=== PATIENT | female | born 1960 | race Caucasian/White ===

== ENCOUNTER 2022-06-05 11:20 | Inpatient (IN) | payer OTHER, SELFPAY ==
[2022-06-05] VITALS (15 sets, daily range): BP systolic 108–171; BP diastolic 69–96; PULSE 73–124; RESP 12–18; TEMP 34.8–37; O2SAT 92–100; BMI 24.0
--- NOTE | 2022-06-05 11:30 | RT.EKG_ITS ---
APPROVED REPORT Exam: Resting ECG Reason for Exam: rapid heart rate Patient Location: E HR:105 bpm ECG Measurements Heart Rate 105 AXIS MA 132 P 67 QRSd 86 QRS 33 QT 343 T 21 QTc 447 Conclusion Sinus tachycardia...rate> 99
--- NOTE | 2022-06-05 11:45 | DI.CT_ITS ---
Exam(s) CT CHEST/ABD/PEL W EXAM: CT CHEST/ABD/PEL W CLINICAL HISTORY: acute onset of edema, abdominal legs, tachycardia. TECHNIQUE: Imaging Protocol: Axial computed tomography images with coronal and sagittal reformatted images were created and reviewed CONTRAST MATERIAL: Intravenous: Omnipaque 350 Contrast volume:100 ml Oral: no COMPARISON: No exams were available for comparison FINDINGS: CHEST: Tracheobronchial tree: Patent where visualized. Pulmonary parenchyma: No consolidation or dominant measurable mass. Mild emphysematous changes. Pleura: No effusion or pneumothorax. Lymph nodes: Within normal limits. Aorta: Thoracic portion non-dilated. Heart: Normal size. Minimal coronary artery calcifications. Bones: Unremarkable for age. No lytic or blastic lesions.No compression fractures. Moderate-sized paraesophageal hernia without evidence of obstruction. ABDOMEN: Liver: Normal density. No measurable mass. Gallbladder and biliary tract: Or bladder contracted. No radiodense calculus or dilation. Pancreas: Normal density, no abnormal calcifications or inflammatory process. Spleen: Normal. Kidneys: Normal size, contour and axis. Small bilateral nonobstructing stones. No or obstructive ur opathy. No suspicious masses seen. Adrenal glands: Mildly prominent without focal mass. Aorta: Abdominal portion non-dilated. Atherosclerotic changes. Lymph nodes: Within normal limits. Soft tissues: Left inguinal hernia containing fluid and a loop of bowel which appears at least partia lly obstructing. Additional abdominal wall hernia seen on the left side superior to this level conta ining a portion of bowel which does not appear obstructing. PELVIS: Bladder: Symmetric distention, no gross wall thickening. Bowel: Area of masslike thickening in the rectum, approximately 4 cm in diameter. The colon is marke dly distended proximal to this level. Entire colon markedly dilated to over 8 cm in diameter. No pn eumatosis or colonic wall thickening other than the suspected rectal mass. Peritoneal cavity: Small amount of fluid in the low pelvis. No focal collection or mesenteric inflam matory response. Bones: Unremarkable for age.. Reproductive organs: Grossly within normal limits. IMPRESSION: 1. Apparent rectal mass causing colonic obstruction with severe colonic dilatation. 2. Left inguinal hernia containing fluid and a loop of small bowel which appears to cause a degree o f obstruction. Additional left lower quadrant abdominal wall hernia containing a small portion of britni wel which appears nonobstructed. 3. Paraesophageal hernia containing approximately 1/2 of the stomach. This does not appear obstruct ed. Findings discussed with Leila Vale, emergency department provider. RADIATION DOSE DELIVERED: 955.92mGy.cm Total DLP DATA REPOSITORY: All CT scans at this facility are submitted to the National Radiology Data Registry (NRDR) Dose Index Registry (DIR) with the [employer] ([employer]). RADIATION OPTIMIZATION: All CT scans at this facility use at least one of these dose optimization te chniques: automated exposure control; mA and/or kV adjustment per patient size (includes targeted exa ms where dose is matched to clinical indication); or iterative reconstruction.
[2022-06-05 11:55] LABS: Abs Immature Grans 0.09 10^3/uL (0.0-0.06); Absolute Basophil Count 0.03 10^3/uL (0.0-0.2); Absolute Eosinophil Count 0.01 10^3/uL (0.0-0.7); Absolute Lymphocyte Count 2.22 10^3/uL (1.2-3.4); Absolute Monocyte Count 0.75 10^3/uL (0.1-0.8); Absolute Neutrophil Count 6.17 10^3/uL (1.2-6.7); Basophils % 0.3; Eosinophils % 0.1; HCT 46.7 % (36.0-46.0); HGB 15.8 g/dL (11.2-15.7); Lymphocytes % 23.9; MCH 30.5 pg (27.0-33.0); MCHC 33.8 % (32.0-36.0); MCV 90 fL (80-95); MPV 10.7 fL (8.0-11.0); Monocytes % 8.1; Neutrophils % 66.6; Platelet Count 386 10^3/uL (130-400); RBC 5.18 10^6/uL (3.93-5.22); RDW-SD 53.3 fL; WBC 9.27 10^3/uL (4.4-10.8)
[2022-06-05 12:21] LABS: ALT 25 U/L (14-59); AST 26 U/L (15-37); Albumin 3.2 g/dL (3.4-5.0); Alkaline Phosphatase 88 U/L (46-116); Anion Gap 8.9 mmol/L (3-11); BUN 17 mg/dL (7-18); Bilirubin, Total 0.5 mg/dL (0.2-1.0); CO2 26.1 mmol/L (21.0-32.0); Calcium 8.9 mg/dL (8.5-10.1); Chloride 103 mmol/L (98-107); Glucose 106 mg/dL (74-106); Lipase 65 U/L (16-77); NT-proBNP 781 pg/mL (<300); Sodium 138 mmol/L (136-145); Total Protein 6.3 g/dL (6.4-8.2); Troponin I < 50 ng/L (<or=60)
[2022-06-05 12:23] LABS: Potassium 2.8 mmol/L (3.5-5.1)
[2022-06-05 12:45] LABS: Magnesium 2.1 mg/dL (1.8-2.4)
[2022-06-05] MEDS: Normal Saline 500 ML 250 ML IV (12:50)
[2022-06-05] MEDS: POTASSIUM CHLORIDE 20 MEQ/100 ML BAG 50 MEQ IVPB (12:50)
[2022-06-05] MEDS: Potassium Chloride 20 MEQ TABCR 40 MEQ PO (12:51)
[2022-06-05] MEDS: Omnipaque 350 MG/ML 100 ML BTL IJ (12:56)
[2022-06-05 14:17] LABS: COVID-19 PCR Negative (Negative); Influenza A PCR Negative (Negative); Influenza B PCR Negative (Negative); RSV PCR Negative (Negative)
[2022-06-05 14:20] LABS: Source Nasopharynx
--- NOTE | 2022-06-05 14:23 | W.ED.GENAD ---
Discharge Plan Disposition Patient Disposition: Admit to [facility] Condition: Serious Discharge Details Clinical Impression: Hypokalemia, Bowel obstruction Admit Date/Time: 06/06/22 13:28 Admit Provider: Shahram Agudelo Attending Provider: Shahram Agudelo Primary Care Provider: Unknown,Unknown ED Provider: Leila Vale Discharge Data Discharge Date/Time-TO BE ENTERED AT DEPARTURE: 06/05/22 14:37 Medical Decision Making 62-year-old female presents with edema to abdomen and lower extremities approximately a month ago In the absence of any pain complaints CT chest abdomen and pelvis ordered secondary to concern for acute pathology CT scan shows evidence of possible rectal mass Patient made aware There is acute bowel obstruction noted and so surgery was consulted, Dr. Agudelo to take patient to the operating room Patient is fully alert and oriented, she seems to understand the concern for rectal mass and need for urgent surgical intervention to decompress her bowel Sister was in room and involved in all discussion Patient wishes to be full code at this time Of note, she was hypokalemic, 2.8 without QTC prolongation or EKG findings consistent with hypokalemia, did receive 20 mEq of IV potassium and 40 mEq of p.o. potassium, magnesium within normal limits At this time patient is agreeable to admission, all questions answered to the best my ability Fluid pending Dr. Agudelo to admit Medical Records Medical records reviewed: Yes I reviewed the patient's medical records. Lab Data Lab results reviewed: Yes I reviewed the patient's lab results. HPI General Date/Time Provider Initiated Documentation: 06/05/22 11:41. HPI Narrative: This 62-year-old female presents with report of abdominal distention and peripheral edema and some intermittent GI upset for the past month. She prior to the edema had approximately a 10 pound weight loss per patient. Sixpack on a daily basis. She denies any pain. She states she has had normal bowel movements and no real nausea or vomiting to speak of. Last bowel movement was last evening and normal per patient. Denies any chest pain or shortness of breath. States her symptoms have been gradually worsening. Denies any known weight gain. Has not been under the care of a medical provider or had any real health assessment in the last 12 years per patient. Denies any infectious signs or symptoms. Related Data Home Medications Medication Instructions Recorded Confirmed Unknown [No Known Home Meds] 06/05/22 06/05/22 Allergies Allergy/AdvReac Type Severity Reaction Status Date / Time No Known Allergies Allergy Unverified 06/05/22 11:26 General Stated Complaint: GenMedical TAMI: 3 PFSH All Active Problems Hypokalemia (Acute) Bowel obstruction (Acute) Social History Smoking/Tobacco Use Status: Current every day Smoking risk assessment performed?: Yes Do you feel safe at home: Yes Exam Narrative Exam Narrative: Patient is alert, oriented, cooperative, no scleral icterus or jaundice noted to skin No respiratory distress, lungs clear to auscultation, rate rhythm with sinus tachycardia, no murmurs or rubs Ab abdomen with notable distention, no tenderness, obvious inguinal hernia that is soft and easily reducible Skin with pallor noted, fully alert and oriented, 2+ edema to bilateral lower extremities Const General: cooperative, comfortable and no acute distress HENMT Other: Uvula midline, oropharynx patent Eyes Sclera: sclerae normal Resp Effort & Inspection: normal respiratory effort Auscultation: clear to auscultation bilaterally Cardio Rate: regular rate Rhythm: regular rhythm GI Other: Distended abdomen, no tenderness, inguinal hernia, very soft, nontender, easily reducible Skin General skin exam: no rashes or lesions noted Neuro General: patient alert and patient oriented x3 Extrem Other: 2+ edema to bilateral lower extremities Neurovascularly intact Course Vital Signs Vital signs: Vital Signs Temperature 36.4 C L 06/05/22 11:22 Pulse 124 H 06/05/22 11:22 Respiratory Rate 18 06/05/22 11:22 Blood Pressure 150/91 H 06/05/22 11:22 Pulse Oximetry 99 06/05/22 11:22 Temperature 36.4 C L 06/05/22 11:22 Temperature Source Tympanic 06/05/22 11:22 Pulse 101 H 06/05/22 13:13 Pulse 102 H 06/05/22 12:30 Respiratory Rate 15 06/05/22 13:13 Respiratory Effort 06/05/22 11:31 Respiratory Depth Normal 06/05/22 11:31 Respiratory Pattern Normal 06/05/22 11:31 Blood Pressure 147/74 H 06/05/22 13:13 Blood Pressure Mean 93 06/05/22 13:13 Blood Pressure Position Sitting 06/05/22 11:22 Pulse Oximetry 98 06/05/22 13:13 Oxygen Delivery Method Room Air 06/05/22 11:22 Oxygen Flow Rate 0 06/05/22 11:22 Pain Level 0 06/05/22 11:22 Lab/Test Results Lab/Test Results: Laboratory Tests Range/Units 06/05/22 06/05/22 06/05/22 11:50 11:50 11:50 WBC (4.4-10.8) 10^3/uL 9.27 RBC (3.93-5.22) 10^6/uL 5.18 Hgb (11.2-15.7) g/dL 15.8 H Hct (36.0-46.0) % 46.7 H MCV (80-95) fL 90 MCH (27.0-33.0) pg 30.5 MCHC (32.0-36.0) % 33.8 RDW (11.7-14.6) % 16.0 H Plt Count (130-400) 10^3/uL 386 MPV (8.0-11.0) fL 10.7 Immature Gran % 1.0 Neutrophils % 66.6 Lymphocytes % 23.9 Monocytes % 8.1 Eosinophils % 0.1 Basophils % 0.3 Nucleated RBC % (0.0-0.3) % 0.0 Absolute Neutrophils (1.2-6.7) 10^3/uL 6.17 Absolute Lymphocytes (1.2-3.4) 10^3/uL 2.22 Absolute Monocytes (0.1-0.8) 10^3/uL 0.75 Absolute Eosinophils (0.0-0.7) 10^3/uL 0.01 Absolute Basophils (0.0-0.2) 10^3/uL 0.03 Sodium (136-145) mmol/L 138 Potassium (3.5-5.1) mmol/L 2.8 L* Chloride (98-107) mmol/L 103 Carbon Dioxide (21.0-32.0) mmol/L 26.1 Anion Gap (3-11) mmol/L 8.9 BUN (7-18) mg/dL 17 Creatinine (0.55-1.02) mg/dL 1.0 Est GFR (CKD-EPI 2020) (mL/min/1.73m2) 63.70 Glucose (74-106) mg/dL 106 Calcium (8.5-10.1) mg/dL 8.9 Magnesium (1.8-2.4) mg/dL 2.1 Total Bilirubin (0.2-1.0) mg/dL 0.5 AST (15-37) U/L 26 ALT (14-59) U/L 25 Alkaline Phosphatase (46-116) U/L 88 Troponin I (<or=60) ng/L < 50 NT-Pro-B Natriuret Pep (<300) pg/mL 781 H Total Protein (6.4-8.2) g/dL 6.3 L Albumin (3.4-5.0) g/dL 3.2 L Lipase (16-77) U/L 65 COVID-19 Source SARS-CoV-2 (PCR) (Negative) Influenza Type A (PCR) (Negative) Influenza Type B (PCR) (Negative) RSV (PCR) (Negative) Range/Units 06/05/22 13:30 WBC (4.4-10.8) 10^3/uL RBC (3.93-5.22) 10^6/uL Hgb (11.2-15.7) g/dL Hct (36.0-46.0) % MCV (80-95) fL MCH (27.0-33.0) pg MCHC (32.0-36.0) % RDW (11.7-14.6) % Plt Count (130-400) 10^3/uL MPV (8.0-11.0) fL Immature Gran % Neutrophils % Lymphocytes % Monocytes % Eosinophils % Basophils % Nucleated RBC % (0.0-0.3) % Absolute Neutrophils (1.2-6.7) 10^3/uL Absolute Lymphocytes (1.2-3.4) 10^3/uL Absolute Monocytes (0.1-0.8) 10^3/uL Absolute Eosinophils (0.0-0.7) 10^3/uL Absolute Basophils (0.0-0.2) 10^3/uL Sodium (136-145) mmol/L Potassium (3.5-5.1) mmol/L Chloride (98-107) mmol/L Carbon Dioxide (21.0-32.0) mmol/L Anion Gap (3-11) mmol/L BUN (7-18) mg/dL Creatinine (0.55-1.02) mg/dL Est GFR (CKD-EPI 2020) (mL/min/1.73m2) Glucose (74-106) mg/dL Calcium (8.5-10.1) mg/dL Magnesium (1.8-2.4) mg/dL Total Bilirubin (0.2-1.0) mg/dL AST (15-37) U/L ALT (14-59) U/L Alkaline Phosphatase (46-116) U/L Troponin I (<or=60) ng/L NT-Pro-B Natriuret Pep (<300) pg/mL Total Protein (6.4-8.2) g/dL Albumin (3.4-5.0) g/dL Lipase (16-77) U/L COVID-19 Source Nasopharynx SARS-CoV-2 (PCR) (Negative) Negative Influenza Type A (PCR) (Negative) Negative Influenza Type B (PCR) (Negative) Negative RSV (PCR) (Negative) Negative Critical Care Time Critical Care Time Attestation: Approximately 45 minutes of critical care time was performed secondary to hypokalemia and bowel obstruction needing surgical intervention, interventions included consultation with general surgery, telemetry monitoring, IV potassium repletion, p.o. potassium repletion, telemetry monitoring, diagnostic lab interpretation, CT imaging interpretation and review, discussion with radiologist, Dr. Chambers, and admission to the hospitalist
--- NOTE | 2022-06-05 14:29 | HPE_ITS ---
Assessment and Plan Assessment and plan (1) Bowel obstruction: Status: Acute Assessment and plan: This seems most can distant with a near complete large bowel obstruction with the most likely source being a colorectal malignancy. Less likely would be benign colorectal disease like diverticular stricture. And I suppose a small bowel obstruction could also be in the differential diagnosis although the dilation of the colon would not support that. Given the changes in the rectosigmoid junction seen on the CAT scan, I think it is reasonable to proceed with a colonoscopy in an effort to obtain tissue diagnosis, and potentially get across the obstruction for colonic decompression. I am unable to pass the scope beyond the pathology, then she will need a loop sigmoid colostomy for colonic decompression until we confirm the diagnosis. I talked about the nature of the procedure, the risks and benefits of the surgery, and she was able to provide informed consent History of Present Illness History of Present Illness Chief Complaint: Leg swelling Narrative: Danielle 62 years old, and she comes into the emergency department today because of lower extremity swelling that started last night. 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 Swelling was a little worse last night, and immediately after waking this morning, she noticed that it came right back. During the evaluation in the emergency department, she was noted to have a massively distended abdomen. She underwent a CAT scan of the abdomen and pelvis that demonstrated high-grade large bowel obstruction, and concern for a mass in the area of the rectosigmoid colon. On further questioning, she does note that she had an unanticipated weight loss of approximately 40 to 50 pounds several months ago. Since that time, her weight is plateaued around 130 pounds. She may have had some mild associated loss of appetite around that time as well. Otherwise, she is feels like she is in her usual state of health. She tells me she has a surgical history of a left neck cyst removal, as well as a oophorectomy for an ovarian cyst. She does not routinely see a physician as part of routine health [facility]. She is never had a colonoscopy. She says she is got a family medical history that significant for mother with diverticulitis, and a father with colitis. She is a lifelong heavy tobacco smoker. Review of Systems Constitutional Constitutional: Denies body ache(s), Denies difficulty sleeping, Denies fever(s), Reports poor appetite and Reports weight loss Eyes Eyes: Reports system reviewed and no additional complaints, except as documented ENT Ears, Nose, Mouth, and Throat: Reports system reviewed and no additional complaints, except as documented and Denies hoarseness Cardiovascular Cardiovascular: Denies chest pain, Reports edema, Reports leg edema, Denies dyspnea and Denies dyspnea on exertion Respiratory Respiratory: Denies cough, Denies dyspnea, Denies dyspnea on exertion and Denies stridor Gastrointestinal Gastrointestinal: Denies abdominal pain, Reports bloating, Denies change in bowel habits, Reports nausea and Reports vomiting Genitourinary Genitourinary: Reports system reviewed and no additional complaints, except as documented Musculoskeletal Musculoskeletal: Reports system reviewed and no additional complaints, except as documented Psychiatric Psychiatric: Reports system reviewed and no additional complaints, except as documented Hematologic/Lymphatic Hematologic/Lymphatic: Denies easy bleeding PFSH All Active Problems Hypokalemia (Acute) Bowel obstruction (Acute) Social History Smoking/Tobacco Use Status: Current every day Smoking risk assessment performed?: Yes Do you feel safe at home: Yes Meds Allergies and Home Medications Allergies Allergy/AdvReac Type Severity Reaction Status Date / Time No Known Allergies Allergy Unverified 06/05/22 11:26 Home Medications Medication Instructions Recorded Confirmed Type Unknown [No Known Home Meds] 06/05/22 06/05/22 History Exam Const General: cooperative, comfortable and no acute distress Nutritional Appearance: underweight Orientation: alert, awake and oriented x3 HENMT Head: normal to inspection Mouth: oral mucosae normal Eyes General: appearance normal, both eyes and all related structures Neck Neck: normal visual inspection, full ROM and no lymphadenopathy Other: There is a scar on the left side of her neck Resp Effort & Inspection: normal respiratory effort and able to speak in complete sentences Auscultation: clear to auscultation bilaterally and no rhonchi Cardio Jugular venous pressure: no JVD Rate: regular rate Rhythm: regular rhythm Heart Sounds: S1 normal and S2 normal GI Inspection: distended Palpation: soft, hernia (Left inguinal reducible) and nontender Percussion: tympanic to percussion Auscultation: high-pitched sounds Skin General skin exam: no rashes or lesions noted Neuro General: patient alert, patient awake and patient oriented x3 Extrem General: pedal edema bilaterally Results Imaging Abdomen CT scan report/results: report reviewed CT scan - pelvis: report reviewed and image reviewed Labs Result diagrams: 06/05/22 11:50 06/05/22 11:50 Labs: Laboratory Results - last 24 hr 06/05/22 06/05/22 06/05/22 11:50 11:50 11:50 WBC 9.27 RBC 5.18 Hgb 15.8 H Hct 46.7 H MCV 90 MCH 30.5 MCHC 33.8 RDW 16.0 H Plt Count 386 MPV 10.7 Immature Gran % 1.0 Neutrophils % 66.6 Lymphocytes % 23.9 Monocytes % 8.1 Eosinophils % 0.1 Basophils % 0.3 Nucleated RBC % 0.0 Absolute Neutrophils 6.17 Absolute Lymphocytes 2.22 Absolute Monocytes 0.75 Absolute Eosinophils 0.01 Absolute Basophils 0.03 Sodium 138 Potassium 2.8 L* Chloride 103 Carbon Dioxide 26.1 Anion Gap 8.9 BUN 17 Creatinine 1.0 Est GFR (CKD-EPI 2020) 63.70 Glucose 106 Calcium 8.9 Magnesium 2.1 Total Bilirubin 0.5 AST 26 ALT 25 Alkaline Phosphatase 88 Troponin I < 50 NT-Pro-B Natriuret Pep 781 H Total Protein 6.3 L Albumin 3.2 L Lipase 65 COVID-19 Source SARS-CoV-2 (PCR) Influenza Type A (PCR) Influenza Type B (PCR) RSV (PCR) 06/05/22 13:30 WBC RBC Hgb Hct MCV MCH MCHC RDW Plt Count MPV Immature Gran % Neutrophils % Lymphocytes % Monocytes % Eosinophils % Basophils % Nucleated RBC % Absolute Neutrophils Absolute Lymphocytes Absolute Monocytes Absolute Eosinophils Absolute Basophils Sodium Potassium Chloride Carbon Dioxide Anion Gap BUN Creatinine Est GFR (CKD-EPI 2020) Glucose Calcium Magnesium Total Bilirubin AST ALT Alkaline Phosphatase Troponin I NT-Pro-B Natriuret Pep Total Protein Albumin Lipase COVID-19 Source Nasopharynx SARS-CoV-2 (PCR) Negative Influenza Type A (PCR) Negative Influenza Type B (PCR) Negative RSV (PCR) Negative Last Vital Signs Temp 97.5 F L 06/05/22 11:22 Pulse 101 H 06/05/22 13:13 Resp 15 06/05/22 13:13 BP 147/74 H 06/05/22 13:13 Pulse Ox 98 06/05/22 13:13
[2022-06-05 14:42] LABS: Bilirubin Negative (Negative); Blood Small (Negative); Clarity Sl Cloudy (Clear); Glucose Negative (Negative); Ketones Negative (Negative); Leukocyte Esterase Moderate (Negative); Nitrite Negative (Negative); Urobilinogen 0.2 EU/dL (Up TO 0.2)
--- NOTE | 2022-06-05 14:49 | ANES.PREOP_ITS ---
General Info Date of Service Date Performed: 06/05/22 Height: 5 ft 1 in Weight: 57.7 kg Body Mass Index (BMI): 24.0 Surgical Procedure: Operation Date: 06/05/22 14:50 Proposed Procedure Side Surgeon p Colonoscopy Shahram Agudelo MD s Possible Exploratory Laparotomy Shahram Agudelo MD Meds Allergies and Home Medications Allergies Allergy/AdvReac Type Severity Reaction Status Date / Time No Known Allergies Allergy Unverified 06/05/22 11:26 Home Medication Medication Instructions Recorded Unknown [No Known Home Meds] 06/05/22 Current Visit Medications: Current Medications Generic Name Dose Route Start Last Admin Trade Name Freq PRN Reason Stop Dose Admin Dimethicone/Zinc Oxide 0 gm 06/05/22 13:28 Pippa Protect Cream 142 Gm Tube TP PRN PRN Potassium Chloride 20 meq in 100 mls @ 50 mls/hr 06/05/22 12:30 06/05/22 14:31 IVPB 06/05/22 16:29 Not Given Q2H AMRIK Sodium Chloride 500 mls @ 250 mls/hr 06/05/22 13:27 06/05/22 12:50 Saline 1000ml Bag IV 06/05/22 15:26 250 mls/hr BOLUS ONE Administration Iohexol 100 ml 06/05/22 13:00 06/05/22 12:56 Omnipaque 350 Mg/Ml 100 Ml Btl IJ 07/05/22 23:59 100 ml DIRECTED AMRIK Administration PFSH Active Problems Active Problems: Problem Status Onset Code Hypokalemia E87.6 Bowel obstruction K56.609 Tobacco Smoking/Tobacco Use Status: Current every day Vital Signs and Lab Results Vital Signs Most Recent Vital Signs in EMR: Most Recent Vital Signs Temp Pulse Resp BP Pulse Ox 36.4 C L 101 H 15 147/74 H 98 06/05/22 11:22 06/05/22 13:13 06/05/22 13:13 06/05/22 13:13 06/05/22 13:13 Lab Results Result Diagrams: 06/05/22 11:50 06/05/22 11:50 Blood Type / Crossmatch: No Data to Display Complete Blood Count: White Blood Count 9.27 10^3/uL (4.4-10.8) 06/05/22 11:50 Red Blood Count 5.18 10^6/uL (3.93-5.22) 06/05/22 11:50 Hemoglobin 15.8 g/dL (11.2-15.7) H 06/05/22 11:50 Hematocrit 46.7 % (36.0-46.0) H 06/05/22 11:50 Platelet Count 386 10^3/uL (130-400) 06/05/22 11:50 Complete Metabolic Panel: Sodium 138 mmol/L (136-145) 06/05/22 11:50 Potassium 2.8 mmol/L (3.5-5.1) L* 06/05/22 11:50 Chloride 103 mmol/L (98-107) 06/05/22 11:50 Carbon Dioxide 26.1 mmol/L (21.0-32.0) 06/05/22 11:50 BUN 17 mg/dL (7-18) 06/05/22 11:50 Creatinine 1.0 mg/dL (0.55-1.02) 06/05/22 11:50 Est GFR (CKD-EPI 2020) 63.70 (mL/min/1.73m2) 06/05/22 11:50 Magnesium 2.1 mg/dL (1.8-2.4) 06/05/22 11:50 Calcium 8.9 mg/dL (8.5-10.1) 06/05/22 11:50 Albumin 3.2 g/dL (3.4-5.0) L 06/05/22 11:50 Glucose 106 mg/dL (74-106) 06/05/22 11:50 Liver Function Panel: Alanine Aminotransferase (ALT/SGPT) 25 U/L (14-59) 06/05/22 11: 50 Aspartate Amino Transf (AST/SGOT) 26 U/L (15-37) 06/05/22 11:50 Coagulation Panel: No Data to Display Cardiac Panel: Troponin I < 50 ng/L (<or=60) 06/05/22 NT-Pro-B Natriuret Pep 781 pg/mL (<300) H 06/05/22 Arterial Blood Gas: No Data to Display Venous Blood Gas: No Data to Display Pancreas Panel: Lipase 65 U/L (16-77) 06/05/22 11:50 Thyroid Panel: No Data to Display Infectious Disease: Coronavirus (COVID-19)(PCR) Negative (Negative) 06/05/22 13:30 Coronavirus 2019 Source Nasopharynx 06/05/22 13:30 Influenza Virus Type A (PCR) Negative (Negative) 06/05/22 13:3 0 Influenza Virus Type B (PCR) Negative (Negative) 06/05/22 13:3 0 Respiratory Syncytial Virus (PCR) Negative (Negative) 06/05/22 13:30 Blood Cultures: No Data to Display Toxicology Panel: No Data to Display Anesthesia Assessment and Plan Anesthesia History Personal History: No History of Anesthesia Complications Family History: No Family History of Anesthesia Complications Exercise Tolerance Exercise Tolerance: Metabolic Equivalents>4 Pertinent Negatives Pertinent Negatives: No Symptoms of GERD, No Major Cardiovascular Symptoms or Complaints, No Major Pulmonary Symptoms or Complaints and No History of CVA/TIA Cardiac & Pulmonary Exam Cardiac Exam: Normal S1/S2 Heart Sounds Pulmonary Exam: Clear Bilateral Breath Sounds Implantable Cardiac Device Does patient have a Pacemaker or an ICD?: No Airway Exam Known Difficult Airway: No Mallampati Class: 2 Mouth Opening: Normal (> 3cm) Thyromental Distance: Greater than 3 cm Neck Range of Motion: Full ROM Neck Circumference: Normal Teeth Condition: Generalized Poor Dentition Airway Comments: Missing uppers only has teeth in lower front. Not loose per patient ASA Classification ASA Score: ASA 2 (E) Emergency Case?: Yes NPO Status NPO Status: NPO Small Non-Fatty Meal >6 hours Anesthesia Plan Resuscitation Status: Full Code Anesthesia Technique: General Anesthesia Airway Planned: Endotracheal Tube Monitors Used: Standard Monitors
[2022-06-05 14:51] LABS: Bacteria Moderate HPF (Negative); C & S Indicated? Yes; Casts Negative LPF (Negative); Crystals Negative HPF (Negative); Epithelial Cells Rare HPF (Negative); Mucus Negative (Negative); WBC 20-50 HPF (0-5)
--- NOTE | 2022-06-05 14:58 | NUR.NOTE ---
Nursing Note:Pt to PACU via stretcher. Report given to Natividad MARIN and rpt troponin drawn and sent to lab.
[2022-06-05] MEDS: Lactated Ringers 1,000 ML 30 ML IV (15:04)
[2022-06-05] MEDS: ceFAZolin 2 GM/50 ML BAG 200 GM (15:17)
[2022-06-05 15:21] LABS: Troponin I < 50 ng/L (<or=60)
[2022-06-05] MEDS: Bupivacaine 0.5% Pres-Free W/EPI 30 ML VIAL (16:59)
[2022-06-05] MEDS: Bupivacaine LIPOSOME/PF 133 MG/10 ML VIAL IJ (16:59)
--- NOTE | 2022-06-05 17:40 | W.PM.OP ---
Date of service: 06/05/22 Time of Service: 17:41 Operative Note Operative Note DATE OF PROCEDURE: 06/05/22 PRE-OP DIAGNOSIS: Large bowel obstruction POST-OP DIAGNOSIS: same PROCEDURE: Colonoscopy, laparotomy with creation of loop sigmoid colostomy SURGEON: Shahram Agudelo MANAGER CORPORATE RESPONSIBILITY: Vivienne Adams ANESTHESIA TYPE: Local By Surgeon and General LMA/ETT Refer to Anesthesia Record ESTIMATED BLOOD LOSS: 100 PATHOLOGY: none sent COMPLICATIONS: None Patient was transported to: PACU Patient's condition: stable Indications: Danielle is a 62-year-old woman who comes in with a chief complaint of lower extremity edema, but on physical exam, she found to have a massively distended abdomen. She underwent a CAT scan of the abdomen and pelvis that demonstrated a large bowel obstruction perhaps from an obstructing mass in the rectosigmoid region. I explained my concerns regarding the nature of her bowel obstruction, my recommendation for a diverting loop colostomy and attempted tissue diagnosis of the mass in the pelvis. Findings: Dense pelvic adhesions, and possible pelvic mass with obstruction of the sigmoid colon. Procedure Description: After the induction of general endotracheal anesthesia, the patient was placed in lithotomy positioning. Great care was taken to pad all of her points of contact. Hernandes urinary catheter was inserted in the usual fashion. Next, I began with a diagnostic colonoscopy. I performed a digital rectal exam which was normal. I advanced a standard colonoscope into the rectal vault. It was filled with stool. Using combination of irrigation and suction, I was able to gently advance the scope through the rectum, and into what I believe was a descending sigmoid colon. I was able to identify some diverticulosis, but navigation of the colonic lumen was quite challenging. I did not feel that I could safely advance to the point of obstruction and obtain satisfactory biopsy. Therefore, I discontinued the colonoscopy Next, I prepped and draped the patient in usual fashion. I began with a left lower quadrant incision planning to bring up a sigmoid loop colostomy. I dissected down through the skin and subcutaneous tissues. I the rectus muscle, and entered the peritoneal cavity sharply under direct vision. There is dilation of the small intestine which made it quite difficult to identify the sigmoid colon. Unfortunately, the dilation of the small intestine made it nearly impossible to identify the correct portion of the large intestine. Therefore, I made a midline incision and eviscerated the dilated small intestine to gain better visualization. There is a dense band of tissue adjacent to the pelvic brim tethering the sigmoid colon posterior and downward. It feels more consistent with a mass rather than an adhesive band. The sigmoid colon is massively dilated and stool-filled. I was able to traced this up towards the splenic flexure. I can palpate the dilated large intestine along the splenic flexure and throughout the mid transverse colon, hepatic flexure, and descending colon. Although I was able to visualize some of the large intestine, the dilation of the small bowel still made it quite challenging to identify appropriate anatomy. Therefore, in the midportion of the small intestine, I placed a small pursestring suture on the antimesenteric border of the small intestine. I made a sharp enterotomy, and decompress the gases component of the small intestine. I closed the defect with a pursestring suture, great care was taken to make sure that there was no spillage of succus. With this complete, I was able to more safely identify normal anatomy of the descending and sigmoid colon. I identified a portion of the sigmoid colon that was appropriate to deliver through the left lower quadrant ostomy incision. I made a small defect in the mesenteric border and passed a Tab drain posterior to help elevate the colon. Because it was so dilated, and stool-filled, I was not able to safely deliver it through the stoma site. Therefore, similar to the small intestine, I placed a pursestring suture on the free tenia on the antimesenteric side. I then created a colostomy, and gently decompressed some of the colonic contents with a pull sucker type suction. With this complete, the sigmoid colon was far more mobile, it was easily delivered through the stoma site. I secured it in place using a colostomy bar. I then turned my attention back to the midline incision. I made sure that the orientation of the small bowel was appropriate and free. I laid the greater omentum over the small intestine, and closed the midline fascia with running 2-0 PDS stitches. Irrigated the soft tissues overlying it, and approximated them with interrupted Vicryl stitches. I irrigated once again, and closed the skin with a surgical stapler. Next, I protected that incision and turned my attention back to the colostomy site. I excised the previously mentioned colotomy with a longitudinal incision across the antimesenteric border of the colon. I fixed it to the skin with interrupted Vicryl stitches along the circumference of the stoma. Once this was complete, I gently palpated the a ferret me ferret limbs of the loop colostomy. There was no pressure on the fascial edge. I then applied a colostomy device, changed gloves, irrigated the midline incision, and placed a sterile Mepilex dressing over the incision.
[2022-06-05] MEDS: Ketorolac 15 MG/ML VIAL IVP (17:55)
--- NOTE | 2022-06-05 18:04 | W.ANESPOSTOP ---
Postoperative Evaluation Date, Time and Location Date Performed: 06/05/22 Time Performed: 18:04 Patient Location: PACU Vital Signs Most Recent Imported Vital Signs: Most Recent Vital Signs Temp Pulse Resp BP Pulse Ox 36.3 C L 79 17 170/82 H 95 06/05/22 17:58 06/05/22 17:58 06/05/22 17:58 06/05/22 17:58 06/05/22 17:58 Pain Score Most Recent Pain Score: Most Recent Pain Score Pain Level 6 06/05/22 17:58 Assessment Mental Status: Awake (Alert & Oriented to Patient Baseline) Airway and Respiratory Function: Patent airway with normal (patient baseline) respiratory exam Cardiovascular Function: Hemodynamically Stable Hydration Status: Adequately Hydrated Nausea & Vomiting: No Nausea or Vomiting Pain: Pain is tolerable per patient (Inpatient. ) Peripheral Nerve Block: Patient did not receive a nerve block
[2022-06-05] MEDS: Enoxaparin 40 MG/0.4 ML SYR SC (18:48)
[2022-06-05 20:27] LABS: Anion Gap 6.8 mmol/L (3-11); BUN 14 mg/dL (7-18); CO2 28.2 mmol/L (21.0-32.0); CREATININE 0.8 mg/dL (0.55-1.02); Calcium 8.4 mg/dL (8.5-10.1); Chloride 105 mmol/L (98-107); Estimated GFR 83.26 (mL/min/1.73m2); Glucose 107 mg/dL (74-106); Potassium 4.3 mmol/L (3.5-5.1); Sodium 140 mmol/L (136-145)
[2022-06-05] MEDS: MORPHine 2 MG/ML SYR IVP (20:44)
[2022-06-05] MEDS: ACETAMINOPHEN 1,000 MG/100 ML BTL 400 MG IVPB (23:57)
[2022-06-06] MEDS: Normal Saline Flush 10 ML SYR (00:20)
[2022-06-06 06:09] LABS: Abs Immature Grans 0.04 10^3/uL (0.0-0.06); Absolute Basophil Count 0.05 10^3/uL (0.0-0.2); Absolute Eosinophil Count 0.15 10^3/uL (0.0-0.7); Absolute Lymphocyte Count 0.86 10^3/uL (1.2-3.4); Absolute Monocyte Count 0.37 10^3/uL (0.1-0.8); Basophils % 0.4; Eosinophils % 1.2; HCT 43.2 % (36.0-46.0); HGB 14.8 g/dL (11.2-15.7); Immature Grans % 0.3; Lymphocytes % 6.8; MCH 31.3 pg (27.0-33.0); MCHC 34.3 % (32.0-36.0); MCV 91 fL (80-95); MPV 10.7 fL (8.0-11.0); Monocytes % 2.9; Neutrophils % 88.4; Platelet Count 300 10^3/uL (130-400); RBC 4.73 10^6/uL (3.93-5.22); RDW 16.4 % (11.7-14.6); RDW-SD 55.6 fL; WBC 12.72 10^3/uL (4.4-10.8)
[2022-06-06 06:10] LABS: Absolute Neutrophil Count 11.24 10^3/uL (1.2-6.7)
[2022-06-06 06:32] LABS: Anion Gap 7.7 mmol/L (3-11); BUN 14 mg/dL (7-18); CO2 26.3 mmol/L (21.0-32.0); CREATININE 1.1 mg/dL (0.55-1.02); Calcium 8.3 mg/dL (8.5-10.1); Chloride 107 mmol/L (98-107); Estimated GFR 56.81 (mL/min/1.73m2); Glucose 154 mg/dL (74-106); Potassium 3.3 mmol/L (3.5-5.1); Sodium 141 mmol/L (136-145)
--- NOTE | 2022-06-06 06:40 | NUR.NOTE ---
Nursing Note: At start of shift patient reports mild discomfort from ABD. Upon inspection of ABD, screen writer observed large amount of pudding like stool. Ostomy appliance was peeling away from colostomy site. Personal care provided. Ostomy appliance changed along with surgical ABD site dressing d/t being soiled. Patient medicated for pain with MSO4 IVP. Patient reports positive effect from medication.
[2022-06-06 07:18] VITALS: BP 96/62; PULSE 101; RESP 16; TEMP 37.4; O2SAT 95
[2022-06-06] MEDS: ACETAMINOPHEN 1,000 MG/100 ML BTL 400 MG IVPB ×3 (07:39→23:47)
--- NOTE | 2022-06-06 07:50 | PGE_ITS ---
Date of Service Date of service: 06/06/22 Time of Service: 07:50 Assessment and Plan Assessment and plan (1) Bowel obstruction: Status: Acute Assessment and plan: Postop day #1 with laparotomy and colostomy. Patient may eat as tolerated. Pain is very well controlled at this time. Colostomy is functioning well with copious amounts of soft brown stool noted on exam this morning. Strongly encourage patient to ambulate and sit in the chair throughout the day. Continue pulmonary toilet. Hernandes in place, clear yellow urine noted in the Hernandes bag. Once patient is up and moving we will consider discharging the Hernandes. Patient will require education regarding management and care for her colostomy. Continue with increasing activity as tolerated and pain control. I saw and examined Danielle today, and I agree with Ness's notes. Generally, she is doing pretty well after diverting sigmoid loop colostomy. I explained that we were unable to visualize the obstruction colonoscopically, and I still have concerns that this is an underlying malignancy. At this point, I think the most important part is to ensure that she is appropriately decompressed. In that regard, the stoma is working just fine, and she seems to be doing well. I explained that we will have to continue working up the obstruction as an outpatient. She is a little bit tachycardic today, and her white blood cell count is up a little bit. Colostomy looks okay, and the surgical bandages clean. We will plan to check the incision tomorrow. I will also repeat the CBC tomorrow to make sure that the hemoglobin is okay, and the white blood cell count is starting to normalize. I will repeat the basic metabolic panel as well since her creatinine is mildly elevated, although her urine output is certainly appropriate at this time. Subjective Subjective Interval history since last seen: Arrived with the patient resting comfortably in bed. She describes having only mild abdominal pain. She states that she was able to get some sleep last night. She has been passing a moderate amount of stool. She denies any fevers, chills or night sweats. Exam Const General: cooperative, healthy appearing and comfortable Orientation: alert and oriented x3 Resp Effort & Inspection: normal respiratory effort, no audible wheezes and no cough GI Inspection: normal to inspection and non-distended Palpation: soft, no guarding and nontender Other: Colostomy with copious amounts of brown soft stool. Given the amount of stool was unable to evaluate the stoma at this time. Objective Last Vital Signs Temp 37.4 C 06/06/22 07:18 Pulse 101 H 06/06/22 07:18 Resp 16 06/06/22 07:18 BP 96/62 L 06/06/22 07:18 Pulse Ox 95 06/06/22 07:18 Laboratory Results - last 24 hr 06/05/22 06/05/22 06/05/22 11:50 11:50 11:50 WBC 9.27 RBC 5.18 Hgb 15.8 H Hct 46.7 H MCV 90 MCH 30.5 MCHC 33.8 RDW 16.0 H Plt Count 386 MPV 10.7 Immature Gran % 1.0 Neutrophils % 66.6 Lymphocytes % 23.9 Monocytes % 8.1 Eosinophils % 0.1 Basophils % 0.3 Nucleated RBC % 0.0 Absolute Neutrophils 6.17 Absolute Lymphocytes 2.22 Absolute Monocytes 0.75 Absolute Eosinophils 0.01 Absolute Basophils 0.03 Sodium 138 Potassium 2.8 L* Chloride 103 Carbon Dioxide 26.1 Anion Gap 8.9 BUN 17 Creatinine 1.0 Est GFR (CKD-EPI 2020) 63.70 Glucose 106 Calcium 8.9 Magnesium 2.1 Total Bilirubin 0.5 AST 26 ALT 25 Alkaline Phosphatase 88 Troponin I < 50 NT-Pro-B Natriuret Pep 781 H Total Protein 6.3 L Albumin 3.2 L Lipase 65 Urine Color Urine Clarity Urine pH Ur Specific [place] Urine Protein Urine Ketones Urine Blood Urine Nitrite Urine Bilirubin Urine Urobilinogen Ur Leukocyte Esterase Urine RBC Urine WBC Ur Epithelial Cells Urine Crystals Urine Bacteria Urine Casts Urine Mucus Ur Culture Indicated? Urine Glucose COVID-19 Source SARS-CoV-2 (PCR) Influenza Type A (PCR) Influenza Type B (PCR) RSV (PCR) 06/05/22 06/05/22 06/05/22 13:30 14:25 14:55 WBC RBC Hgb Hct MCV MCH MCHC RDW Plt Count MPV Immature Gran % Neutrophils % Lymphocytes % Monocytes % Eosinophils % Basophils % Nucleated RBC % Absolute Neutrophils Absolute Lymphocytes Absolute Monocytes Absolute Eosinophils Absolute Basophils Sodium Potassium Chloride Carbon Dioxide Anion Gap BUN Creatinine Est GFR (CKD-EPI 2020) Glucose Calcium Magnesium Total Bilirubin AST ALT Alkaline Phosphatase Troponin I < 50 NT-Pro-B Natriuret Pep Total Protein Albumin Lipase Urine Color Yellow Urine Clarity Sl Cloudy Urine pH 7.0 Ur Specific [place] 1.010 Urine Protein Negative Urine Ketones Negative Urine Blood Small H Urine Nitrite Negative Urine Bilirubin Negative Urine Urobilinogen 0.2 Ur Leukocyte Esterase Moderate H Urine RBC 5-10 H Urine WBC 20-50 H Ur Epithelial Cells Rare Urine Crystals Negative Urine Bacteria Moderate Urine Casts Negative Urine Mucus Negative Ur Culture Indicated? Yes Urine Glucose Negative COVID-19 Source Nasopharynx SARS-CoV-2 (PCR) Negative Influenza Type A (PCR) Negative Influenza Type B (PCR) Negative RSV (PCR) Negative 06/05/22 06/05/22 06/06/22 19:47 19:58 05:48 WBC RBC Hgb Hct MCV MCH MCHC RDW Plt Count MPV Immature Gran % Neutrophils % Lymphocytes % Monocytes % Eosinophils % Basophils % Nucleated RBC % Absolute Neutrophils Absolute Lymphocytes Absolute Monocytes Absolute Eosinophils Absolute Basophils Sodium 140 141 Potassium Cancelled 4.3 D 3.3 L D Chloride 105 107 Carbon Dioxide 28.2 26.3 Anion Gap 6.8 7.7 BUN 14 14 Creatinine 0.8 1.1 H Est GFR (CKD-EPI 2020) 83.26 56.81 Glucose 107 H 154 H Calcium 8.4 L 8.3 L Magnesium Total Bilirubin AST ALT Alkaline Phosphatase Troponin I NT-Pro-B Natriuret Pep Total Protein Albumin Lipase Urine Color Urine Clarity Urine pH Ur Specific [place] Urine Protein Urine Ketones Urine Blood Urine Nitrite Urine Bilirubin Urine Urobilinogen Ur Leukocyte Esterase Urine RBC Urine WBC Ur Epithelial Cells Urine Crystals Urine Bacteria Urine Casts Urine Mucus Ur Culture Indicated? Urine Glucose COVID-19 Source SARS-CoV-2 (PCR) Influenza Type A (PCR) Influenza Type B (PCR) RSV (PCR) 06/06/22 05:48 WBC 12.72 H RBC 4.73 Hgb 14.8 Hct 43.2 MCV 91 MCH 31.3 MCHC 34.3 RDW 16.4 H Plt Count 300 MPV 10.7 Immature Gran % 0.3 Neutrophils % 88.4 Lymphocytes % 6.8 Monocytes % 2.9 Eosinophils % 1.2 Basophils % 0.4 Nucleated RBC % 0.0 Absolute Neutrophils 11.24 H Absolute Lymphocytes 0.86 L Absolute Monocytes 0.37 Absolute Eosinophils 0.15 Absolute Basophils 0.05 Sodium Potassium Chloride Carbon Dioxide Anion Gap BUN Creatinine Est GFR (CKD-EPI 2020) Glucose Calcium Magnesium Total Bilirubin AST ALT Alkaline Phosphatase Troponin I NT-Pro-B Natriuret Pep Total Protein Albumin Lipase Urine Color Urine Clarity Urine pH Ur Specific [place] Urine Protein Urine Ketones Urine Blood Urine Nitrite Urine Bilirubin Urine Urobilinogen Ur Leukocyte Esterase Urine RBC Urine WBC Ur Epithelial Cells Urine Crystals Urine Bacteria Urine Casts Urine Mucus Ur Culture Indicated? Urine Glucose COVID-19 Source SARS-CoV-2 (PCR) Influenza Type A (PCR) Influenza Type B (PCR) RSV (PCR) Time Spent with Patient Time Spent with Patient: <25 minutes Time was spent: preparing to see the patient(eg.review tests), obtaining and/or reviewing separately otained hiistory and counseling the patient
[2022-06-06 09:12] LABS: Lab Add On Test DONE
[2022-06-06] MEDS: POTASSIUM CHLORIDE 20 MEQ, POTASSIUM CHLORIDE 10 MEQ 30 MEQ PO (14:27)
[2022-06-06 15:01] VITALS: BP 106/70; PULSE 105; RESP 16; TEMP 37.3; O2SAT 97
--- NOTE | 2022-06-06 15:12 | CHAPLAIN ---
Danielle was sitting up in bed and had two friends visiting. She said she is doing well, and that she hasn't been in a hospital in22 years. I explained my role and offered support.
--- NOTE | 2022-06-06 16:54 | PDOC.CMIN ---
- If Service Date Differs Date of service: 06/06/22 Time of Service: 16:54 Care Management Initial Assess REASON FOR HOSPITALIZATION:: Bowel Obstruction PAST MEDICAL HISTORY/PAST SURGICAL HISTORY:: Hypokalemia (Acute). Bowel obstruction (Acute) PREVIOUS FUNCTIONAL STATUS/SOCIAL/FAMILY SUPPORTS:: Danielle resides in [place] and is independent at baseline. CURRENT FUNCTIONAL STATUS:: Danielle remains inpatient, will begin education of colostomy managment. She continues to be followed closely by surgeon; request for inpatient status. ADVANCE DIRECTIVES:: None on file. Has patient been provided with info about the portal/API?: Yes Did the patient sign up for the portal?: No CODE STATUS:: Full Code INSURANCE COVERAGE / FINANCIAL ISSUES:: [employer] CURRENT HOME/COMMUNITY SERVICES/EQUIPMENT:: None, currently. PRIMARY CARE PHYSICIAN:: Referral to [facility] T-doc process: [place]. POTENTIAL DISCHARGE NEEDS:: PCP referral, AD document review, colostomy education. PATIENT/FAMILY EDUCATION NEEDS:: Review discharge instructions, discuss Ask Me Three. ANTICIPATED BARRIERS TO DISCHARGE:: None identified. TRANSPORTATION:: Via private vehicle with family. PLAN:: Danielle will return home when ready per MD. She will have referral to follow up with PCP. She will begin colostomy teaching; anticipate possible referral to home health RN for continued colostomy management. She will transport home via private vehicle with family.
--- NOTE | 2022-06-06 17:35 | IN_ITS ---
Date of service: 06/06/22 Time of Service: 05:35 PT Notes Visit Reasons: Bowel Obstruction Physical Therapy Inpatient Initial Evaluation Date: 06/06/2022 Referring Doctor: Shahram Agudelo MD PT Orders: PT CONSULT: Limited ability Precautions: Fall. Standard. Activity as tolerated. Patient Profile/Admitting Diagnosis: Danielle is a 62-year-old female with large bowel obstruction and is status post laparotomy with creation of a loop sigmoid colostomy on postoperative day 1. PMHX: All Active Problems? Hypokalemia (Acute) Bowel obstruction (Acute) Social History/Home Situation: Lives alone in a private home with 16 steps to enter with rails on both sides, there are 6 more steps to her bedroom also with rails on both sides. Independent with all aspects of ADLs prior to surgery. 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 Equipment Owned/DME: None Subjective: Denies pain, chest pain, headache, and lightheadedness throughout session. Patient states that her face and her legs no longer felt so swollen, added that her legs were 3 times the size before the surgery and is now back to almost normal. Objective: General Observation: Supine in bed. SCDs in place. IV access in right UEs. Colostomy bag in place. Hernandes catheter in place. Minimal swellign moted in the ankles and feet. Mental Status: Alert and oriented as to person, place, time, and purpose. Able to pay attention, focus, and respond appropriately. Pain: 0/10 in surgical incision Vital Signs: WNL as closely monitored by nursing staff ROM: Right Upper Extremity: Shoulder Flexion WFL. Shoulder abduction WFL. Elbow flexion WFL. Wrist flexion WFL. Functional opening and closing of hand WFL. Left Upper Extremity: Shoulder Flexion WFL. Shoulder abduction WFL. Elbow flexion WFL. Wrist flexion WFL. Functional opening and closing of hand WFL. Right Lower Extremity: Hip flexion WFL. Hip abduction WFL. Knee flexion WFL. Ankle dorsiflexion WFL. Ankle plantarflexion WFL. Left Lower Extremity: Hip flexion WFL. Hip abduction WFL. Knee flexion WFL. Ankle dorsiflexion WFL. Ankle plantarflexion WFL. Strength: Right Upper Extremity: Shoulder flexors 5/5. Shoulder abductors 5/5. Elbow flexors 5/5. Elbow extensors 5/5. Cafe Team Member strong. Left Upper Extremity: Shoulder flexors 5/5. Shoulder abductors 5/5. Elbow flexors 5/5. Elbow extensors 5/5. Cafe Team Member strong. Right Lower Extremity: Hip flexors 4-/5. Hip abductors 4-/5. Knee flexors 5/5. Knee extensors 4-/5. Ankle dorsiflexors 5/5. Ankle plantarflexors 5/5. Left Lower Extremity: Hip flexors 4-/5. Hip abductors 4-/5. Knee flexors 5/5. Knee extensors 4-/5. Ankle dorsiflexors 5/5. Ankle plantarflexors 5/5. Bed Mobility/Transfers: Supine to sit with hand-held assist with HOB at 45 degrees Sit to stand with standby assist with FWW Stand to sit with standby assist with FWW. Did report minimal pain sitting down from standing after the walk that resolved with rest. Bed to reclining chair standby assist with FWW Gait: Instructed patient with level surface ambulation of 150 feet requiring contact- guard assist. Arcelia decreased. Denies pain and abdominal incisions throughout. Balance: Static Sitting: Normal Dynamic Sitting: Normal Static Standing: Fair Dynamic Standing: Fair Special Tests: Mobility Limitations Standardized Measure [facility] 6 clicks Basic Mobility Inpatient Short Form: Raw Score: [address] [facility] Score: []% deficit Informed Consent/Education: Patient was instructed in purpose of PT consult and plan of care. Agreeable to proceed with established PT POC to achieve personal goals. Assessment: Patient presents with clinical signs and symptoms consistent with current/admitting diagnoses that have resulted to mobility limitations, gait instability, generalized weakness, and overall ADL decline as demonstrated by the following impairment level findings: 1. Decreased strength to abdominal and B hip flexors due to postoperative status 2. Impaired standing balance 3. Impaired activity tolerance 4. Minimal aswelling in B ankles and feet Impairments are contributing to the following functional limitations: 1. Decline in bed mobility skills 2. Decline in transfer skills 3. Difficulty with ambulation without assistive device and physical assistance 4. Increased completion time for mobility ADL performance 5. Increased risk for falls 6. Difficulty with managing steps alone safely Patient is assessed as a 04166 moderate complexity based on the following: History: 62-year-old female with past medical history as indicated above Examination: Demonstrable impairment in strength, balance, and mobility level with underlying impairments and functional limitations as exhibited above as well as deficit score of 47% utilizing the [facility] Mobility Inpatient Short Form Presentation: Evolving Decision Makin moderate complexity Goals: Goals X1 week 1. Supine-Sit independent 2. Sit-Supine independent 3. Sit-Stand independent 4. Stand-Sit independent with no AD 5. Bed-Chair independent with no AD 6. Chair-Bed independent with no AD 7. Independent gait on level surface with use of no AD for at least 300 feet without report of pain nor dyspnea 8. Independent stair negotiation while holding onto B rails for at least 12 steps without report of pain nor dyspnea 9. Independent with home exercise program 10. Good static and dynamic standing balance/tolerance Plan of Care/Treatment Plan: 1-2x/day, 7 days/week x 1 week. Plan of care has been reviewed with the BUSINESS SUPPORT providing the service under Physical Therapy direction. Initiate Physical Therapy intervention for pain management as needed, strengthening, bed mobility, transfers, gait, stairs, balance training, and use of assistive device. DISCHARGE RECOMMENDATIONS: [] Home with no services [] [] Home with services [specify] [] Home with outpatient PT [] [] SNF for continued rehabilitation [] [] Receiving Inspector Care [] [] SNF versus LTC based on ability to participate and progress [] [X] Home without services vs PT dependening on progress towards goals TREATMENT CODE/TIME: 45307 x 26 minutes beginning at 5:35 PM. Thank you for the opportunity to participate in the care of this patient. Anne Roberts PT, DPT, CLT [facility] [place], [place]
[2022-06-06] MEDS: Enoxaparin 40 MG/0.4 ML SYR SC (18:08)
[2022-06-06 19:25] VITALS: BP 126/78; PULSE 102; RESP 18; TEMP 37.4; O2SAT 97
[2022-06-06 20:18] LABS: CEA 1.6 ng/mL (See Note)
[2022-06-06 23:40] VITALS: BP 108/66; PULSE 104; RESP 20; TEMP 37.5; O2SAT 94
[2022-06-07 06:09] LABS: HCT 39.5 % (36.0-46.0); HGB 13.6 g/dL (11.2-15.7); MCH 30.8 pg (27.0-33.0); MCHC 34.4 % (32.0-36.0); MCV 90 fL (80-95); MPV 11.5 fL (8.0-11.0); Platelet Count 250 10^3/uL (130-400); RBC 4.41 10^6/uL (3.93-5.22); RDW 16.7 % (11.7-14.6); RDW-SD 54.9 fL; WBC 12.57 10^3/uL (4.4-10.8)
[2022-06-07 06:42] LABS: Anion Gap 7.9 mmol/L (3-11); BUN 17 mg/dL (7-18); CO2 25.1 mmol/L (21.0-32.0); Chloride 104 mmol/L (98-107); Glucose 84 mg/dL (74-106); Sodium 137 mmol/L (136-145)
[2022-06-07 06:44] LABS: Potassium 2.9 mmol/L (3.5-5.1)
[2022-06-07 07:02] VITALS: BP 124/75; PULSE 96; RESP 16; TEMP 36.7; O2SAT 95
[2022-06-07] MEDS: ACETAMINOPHEN 1,000 MG/100 ML BTL 400 MG IVPB ×2 (08:03→16:32)
--- NOTE | 2022-06-07 08:46 | W.PM.PROGNOT ---
Date of Service Date of service: 06/07/22 Time of Service: 08:46 Assessment and Plan Assessment and plan (1) Colostomy in place: Status: Acute Assessment and plan: 62 yo woman POD 2 from loop colostomy diversion because of a LBO. HD stable. Good bowel function. Nondistended abdomen. Plan: ostomy teaching reg diet DC planning Remove valenzuela Treat UTI PO K+ DVT ppx Hopeful DC in next 48 hours Subjective Subjective Interval history since last seen: No complaints. No pain. Good ostomy output. Still has valenzuela cath, good urine output. Exam Narrative Exam Narrative: Gen: Nontoxic and comfortable and interactive Neuro: AxOx3 Psych: Good insight and understanding Abdomen: Soft, nondistended and nontender. Ostomy functioning and pink. Dressings on midline are intact and clean and dry. Objective Last Vital Signs Temp 98.1 F 06/07/22 07:02 Pulse 96 H 06/07/22 07:02 Resp 16 06/07/22 07:02 BP 124/75 06/07/22 07:02 Pulse Ox 95 06/07/22 07:02 Laboratory Results - last 24 hr 06/06/22 06/06/22 06/07/22 05:48 05:48 05:38 WBC RBC Hgb Hct MCV MCH MCHC RDW Plt Count MPV Sodium 137 Potassium 2.9 L Chloride 104 Carbon Dioxide 25.1 Anion Gap 7.9 BUN 17 Creatinine 1.0 Est GFR (CKD-EPI 2020) 63.70 Glucose 84 Calcium 8.0 L Magnesium 2.0 Add-On Test Request DONE 06/07/22 05:38 WBC 12.57 H RBC 4.41 Hgb 13.6 Hct 39.5 MCV 90 MCH 30.8 MCHC 34.4 RDW 16.7 H Plt Count 250 MPV 11.5 H Sodium Potassium Chloride Carbon Dioxide Anion Gap BUN Creatinine Est GFR (CKD-EPI 2020) Glucose Calcium Magnesium Add-On Test Request Time Spent with Patient Time Spent with Patient: <25 minutes Time was spent: counseling the patient
[2022-06-07] MEDS: Potassium Chloride 10 MEQ CAPCR 40 MEQ PO (09:13)
[2022-06-07] MEDS: MacroBID 100 MG CAP PO ×2 (09:24→20:22)
--- NOTE | 2022-06-07 10:33 | PT.INTREAT ---
PT Notes Visit Reasons: Bowel Obstruction Precautions: Activity as tolerated, falls SUBJECTIVE: ?Pt is pleasant and agreeable to participating in PT.? Pt did not offer any complaints today.? OBJECTIVE: ? PAIN: No c/o pain ? BED MOBILITY/TRANSFERS? Sit-stand: SBA? Stand-sit: SBA ? GAIT? Assistive Device: FWW? Weight bearing: Full Assist: SBA ? Distance:? 300' x1? Deviation: Cueing for increased step length, step height. ? Therapeutic procedures 53537 mins: Instruction in therapeutic exercises to develop strength and endurance, range of motion and flexibility. ?[]?? Provided skilled instruction in proper exercise performance: [] ?[]?? Provided skilled manual cues to facilitate proper muscle recruitment and/or movement pattern: [] ? Standing march with emphasis on high steps [id number] L/R Heel raises [id number] Toe raises [id number] SSH [id number] sit to stand [id number] ? ASSESSMENT:? Patient able to complete entire big loop without taking rest break, will do stairs next session to get pt ready for transition to home. PLAN: Continue with global strengthening and general conditioning for improved mobility and activity tolerance. TREATMENT CODE/TIME: ?30minutes;? [id number], 39110w6 (8:40-9:10am)
[2022-06-07 15:05] VITALS: BP 139/79; PULSE 108; RESP 16; TEMP 37.4; O2SAT 97
[2022-06-07] MEDS: Enoxaparin 40 MG/0.4 ML SYR SC (17:42)
[2022-06-08 00:10] VITALS: BP 118/65; PULSE 89; RESP 18; TEMP 36.4; O2SAT 95
[2022-06-08] MEDS: ACETAMINOPHEN 1,000 MG/100 ML BTL 400 MG IVPB ×3 (00:10→15:13)
[2022-06-08 07:35] VITALS: BP 112/70; PULSE 98; RESP 16; TEMP 36.9; O2SAT 96
[2022-06-08] MEDS: Normal Saline Flush 10 ML SYR IVP ×3 (08:11→15:13)
[2022-06-08] MEDS: MacroBID 100 MG CAP PO ×2 (08:11→19:43)
[2022-06-08] MEDS: Normal Saline 500 ML 100 ML IV (08:11)
--- NOTE | 2022-06-08 11:00 | W.PM.PROGNOT ---
Date of Service Date of service: 06/08/22 Time of Service: 14:10 Assessment and Plan Assessment and plan (1) Colostomy in place: Status: Acute Assessment and plan: 62 yo woman POD 3 from Loop Colostomy creation for LBO. HD stable. Good BF. The cause of her obstruction isn't clear to me with imaging suggesting the obstruction is/was a left inguinal hernia but also describing a rectal mass. Colonoscopy at index procedure reportedly found significant stool burden, but also successfully navigated up into the sigmoid colon suggesting against a rectal tumor. Probably worthwhile to do an enema and repeat flex sig from below to reassess the diverted segment. In anticipation for that possibility, I made her NPO at midnight tonight. She does NOT need a bowel prep and only an enema an hour before the procedure. Aside from this, she's ready to go home. Will need ostomy teaching and supplies setup. Subjective Subjective Interval history since last seen: No events or clinical changes. No fevers. Tolerating reg diet. Good urine output. Good ostomy output. Exam Narrative Exam Narrative: Gen: Nontoxic and comfortable Neuro: AxOx3 Psych: Good mood and affect, good insight Abdomen: soft and nondistended and nontender. Dressing CDI. Colostomy functioning nicely. Objective Last Vital Signs Temp 98.4 F 06/08/22 07:35 Pulse 98 H 06/08/22 07:35 Resp 16 06/08/22 07:35 BP 112/70 06/08/22 07:35 Pulse Ox 96 06/08/22 07:35 Time Spent with Patient Time Spent with Patient: <25 minutes Time was spent: counseling the patient
--- NOTE | 2022-06-08 11:43 | PT.INTREAT ---
PT Notes Visit Reasons: Bowel Obstruction 06/05/2022 Precautions: Activity as tolerated, falls SUBJECTIVE: ?Pt is pleasant and agreeable to participating in PT.? Pt did not offer any complaints today.? OBJECTIVE: ?PAIN: No c/o pain ?BED MOBILITY/TRANSFERS?Sit-stand: Supervision?Stand-sit: Supervision ?GAIT?Assistive Device: FWW?Weight bearing: Full ?Assist: Supervision?Distance:? 300' x1?Deviation: Cueing for increased step length, step height. ?? Therapeutic Activities 33980 mins: instruction in dynamic activities with one on one patient contact by the provider to improve functional performance?as follows: Stair negotiation training 12 steps step to going up and step through on going down with 1handrail and 1UE support with pt taking standing rest break after pt reached the top landing. ?ASSESSMENT:? Patient able to complete gait training and stair training without LOB and no report of pain pos session. ?PLAN: Continue with global strengthening and general conditioning for improved mobility and activity tolerance. ?TREATMENT CODE/TIME: ?30minutes;? [id number], (8:30-9:00am)
[2022-06-08 15:15] VITALS: BP 131/82; PULSE 111; RESP 18; TEMP 37.4; O2SAT 96
[2022-06-08] MEDS: Enoxaparin 40 MG/0.4 ML SYR SC (17:33)
[2022-06-08 23:14] VITALS: BP 125/73; PULSE 100; RESP 18; TEMP 36.9; O2SAT 94
[2022-06-09 07:23] VITALS: BP 105/65; PULSE 101; RESP 14; TEMP 37.6; O2SAT 98
--- NOTE | 2022-06-09 09:35 | CMPROGNOTE_ITS ---
- If Service Date Differs Date of service: 06/09/22 Time of Service: 09:35 Care Management Progress Note S/O:Danielle was sitting up in a chair when CM met with her. She was alert and oriented and engaged easily in conversation. Danielle has a new colostomy and is learning how to care for it. She lives alone but has good family support from her sisters. Danielle will likely be discharged home tomorrow. She will need home health nursing support for continued ostomy teaching and care. A referral was jitendra joy to [facility] today to ensure continuity of care. Danielle has been walking with PT and was able to ambulate 300 feet with a walker with supervision only. A: Danielle is a 62 year old woman admitted on 06/06/22 with a bowel obstruction P:Danielle will return home with new home health services for nursing for ostomy care and continued teaching. Per provider, she will likely be ready for discharge tomorrow. Danielle will have a referral to follow up with Meagan Stevens at [facility] (T-doc strategy execution consultant on 06/06/22 when Danielle was admitted) as she has no PCP. She will transport home via private vehicle with family. CM will continue to support Danielle and assess for discharge planning needs.
[2022-06-09 11:36] LABS: HCT 44.6 % (36.0-46.0); HGB 15.1 g/dL (11.2-15.7); MCH 29.9 pg (27.0-33.0); MCHC 33.9 % (32.0-36.0); MCV 88 fL (80-95); MPV 10.8 fL (8.0-11.0); Platelet Count 283 10^3/uL (130-400); RBC 5.05 10^6/uL (3.93-5.22); RDW 16.1 % (11.7-14.6); RDW-SD 52.2 fL; WBC 7.91 10^3/uL (4.4-10.8)
--- NOTE | 2022-06-09 12:23 | PHA.REVIEW2 ---
Pharmacy Admission Review - Admission Clinical Review (Last Reviewed 06/05/22 @ 14:34 by Shahram Agudelo MD) Colostomy in place (Acute) Hypokalemia (Acute) Bowel obstruction (Acute) No Known Allergies Allergy (Unverified 06/05/22 11:26) Resuscitation Status Full Code Height 5 ft Weight 57.7 kg - Renal Dosing Renal Dosing: BUN 17 mg/dL (7-18) 06/07/22 05:38 Creatinine 1.0 mg/dL (0.55-1.02) 06/07/22 05:38 Medications needing adjustments: Reviewed (crcl = 46) List of meds needing interventions: per mfr recommendations, macrobid is contraindicated in crcl <60 however data shows use in crcl 30-60 is generally safe for short-term tx (in this case, 5 days for UTI). monitor for decrease in kidney fxn - Anticoagulation Anticoagulation: Hgb 15.1 g/dL (11.2-15.7) 06/09/22 11:20 Hct 44.6 % (36.0-46.0) 06/09/22 11:20 Plt Count 283 10^3/uL (130-400) 06/09/22 11:20 Creatinine 1.0 mg/dL (0.55-1.02) 06/07/22 05:38 DVT Prophylaxis: Reviewed Medications: Enoxaparin (enoxaparin 40 mg daily) Therapeutic Anticoagulation: N/A - Opiate Usage Evaluate Pain Scale/Pains Meds: Reviewed (morphine 2 mg IV q1h prn - has only had one dose, tramadol 50 mg q4h prn - has not received any) Scheduled Bowel Reg ordered if on Opiates?: No (not indicated ) - Relevant Labs Sodium 137 mmol/L (136-145) 06/07/22 05:38 Potassium 2.9 mmol/L (3.5-5.1) L 06/07/22 05:38 Chloride 104 mmol/L (98-107) 06/07/22 05:38 Magnesium 2.0 mg/dL (1.8-2.4) 06/06/22 05:48 Electrolytes, C-Reactive P, ESR: Reviewed (last K+ from 06/07 = 2.9, more recent labs not ordered) - DM Control DM Control: Glucose 84 mg/dL (74-106) 06/07/22 05:38 DM Control: N/A (not diabetic) - Cardiac Review Cardiac Review: Troponin I < 50 ng/L (<or=60) 06/05/22 14:55 NT-Pro-B Natriuret Pep 781 pg/mL (<300) H 06/05/22 11:50 BP, HR, EF%: Reviewed - Qtc Review QTc: Reviewed (QTc = 447 on 06/05) - IV to PO Switch IV Medications: Reviewed - Home Meds Home Med List reviewed: N/A (no home meds) - Current meds Current Medication Order Review: Reviewed Antibiotic Review - Pharmacy Antibiotic Review Pharmacy Antibiotic Activity: 48 hour review, Reviewed, no change - Antibiotic Information Antibiotic Review Info: macrobid 100 mg BID x 5 days for UTI
--- NOTE | 2022-06-09 12:56 | PDOC.HHF2F_ITS ---
Home Health Referral Home Health Orders Clinical synopsis of why skilled professionals are needed: new ostomy. Needs teaching in colostomy care and supplies Medical diagnosis necessitation home health referral: new ostomy rectal mass s/p laparotomy Registered Nurse: Check all that apply Instruct on new or changed medication(s)/assess compliance: Ordered Instruct on ostomy care: Ordered Assess for exacerbation of medical condition, instruct patient/caregivers on signs and symptoms to report for early detection: Ordered Assess wound for signs and symptoms of infection, instruct on wound care and/or provide skilled wound care consisting of: yes Bundling Machine Operator: Assist with community resources: Ordered Assist with retirement care planning: Ordered Home Bound Status Requires the aid of supportive device (check all that apply): Walker Patient has a condition such that leaving home is medically contraindicated (Describe): s/p laparotomy. no driving until 06/18 Describe why leaving home would require a considerable and taxing effort: Side effects from pain medication (sedation/drowsiness), Requires frequent rest periods and Requires alternative accommodations: Encounter Date and Reason: I certify that a FTF encounter for this patient was performed on June 09, 2022 and that such encounter was related to the primary reason the patient requires home health services. The encounter was conducted in the following manner: * By me as the certifying physician, RESOURCING ADVISOR, PA or * By an inpatient physician, RESOURCING ADVISOR or PA during an inpatient stay who communicated findings to me, Certification And Authentication I certify that I composed the above information based on my clinical judgment relating to this patient's medical condition and, if applicable, clinical findings communicated to me by the NPP or inpatient physician who performed the FTF encounter. Name of Provider that will be monitoring home health services: Shahram Agudelo
--- NOTE | 2022-06-09 14:33 | PT.INTREAT ---
Date of service: 06/09/22 Time of Service: 10:30 PT Notes Visit Reasons: Bowel Obstruction Inpatient Physical Therapy Treatment Note [facility] Date: 06/09/2022 PRECAUTIONS: Fall, Activity as tolerated SUBJECTIVE: Danielle is pleasant and agreeable to participating in PT. She reports that she is doing well and feeling better. She states that she feels she is moving well. OBJECTIVE: Patient cleared for independent transfers and ambulation within her room, without a device. PAIN: No c/o pain BED MOBILITY/TRANSFERS Sit-supine: I with HOB flat Sit-supine: I with HOB flat Sit-stand: I Stand-sit: I Bed-chair: I Chair-bed: I GAIT Assistive Device: No AD Weight bearing: Full Assist: S Distance: 300' Deviation: Slightly antalgic gait, otherwise gait unremarkable THEREX: Hold, as patient needs assistance with ostomy care. ASSESSMENT: Patient tolerated session without complaint. She was able to tolerate a progression in gait distance without AD support. She demonstrates independence at this time with transfers and short distance ambulation. PLAN: Reassess stair negotiation at next session, continue gait training without AD (baseline) TREATMENT CODE/TIME: 15 minutes; 88813 (10:30)
[2022-06-09 14:44] VITALS: BP 121/78; PULSE 111; RESP 16; TEMP 37.1; O2SAT 93
--- NOTE | 2022-06-09 15:37 | W.PM.PROGNOT ---
Date of Service Date of service: 06/09/22 Time of Service: 12:30 Assessment and Plan Assessment and plan (1) Colostomy in place: Status: Acute Assessment and plan: POD#4 exploratory laparotomy and diverting loop colostomy for presumed rectal cancer with obstruction. -Colostomy teaching.. She will need home health care for continued colostomy teaching and to get her supplies ordered -Protein supplements. She is tolerating a regular diet -Patient is doing well with PT. Question if she needs a walker upon discharged home. -She is not on antibiotics. (2) Hypokalemia: Status: Acute Assessment and plan: Labs pending (3) Smoker unmotivated to quit: Status: Acute (4) Hiatal hernia: Status: Chronic (5) Emphysema lung: Status: Acute Assessment and plan: Needs to stop smoking Continue incentive spirometry (6) Left inguinal hernia: Status: Acute (7) Coronary artery calcification seen on CAT scan: Status: Acute (8) Status post exploratory laparotomy: (9) Rectal mass: Status: Acute Assessment and plan: - We still do not have a tissue diagnosis. She will need a flex sig and biopsy as outpatient. (10) Colon obstruction: Status: Acute Subjective Subjective Patient reports: pain is less and afebrile Interval history since last seen: Pt is doing well. no headaches. No CP or SOB. no productive cough. no dysuria. She does have some LE +1 pitting edema R>L. no pain or redness. Incision is c/d/i. OStomy is pink/patent/productive. Pt is tolerating a regular diet. Notes from PT reviewed- She is using a walker. She has been emptying her colostomy bag, but not changing the wafer. Exam Const General: cooperative and no acute distress Nutritional Appearance: average body habitus Orientation: alert, awake and oriented x3 Other: PHYSICAL EXAM GENERAL APPEARANCE: Alert, healthy appearance, oriented, x 3,? in no acute distress HYDRATION: Well hydrated HEAD, EYES, EARS, NECK, THROAT: Head is normocephalic, pupils equal, round, reactive to light and accommodation, ocular movement intact, sclera clear and no jaundice. ?Dentition intact. No sore throat.? No jaw pain. No thrush NECK: no lymphadenopathy.? Trachea midline.? Neck supple.? No JVD LUNGS: normal respiration/normal chest excursion. ?Clear to auscultation bilaterally. ?No R/R/W ?HEART: Regular rate and rhythm. no murmurs EXTREMITY:? no leg pain, redness, No IV infiltration +1 edema R>L ABDOMEN: soft and non-tender to palpation.? Incision is clean dry and intact. There is some stool that has gotten into the staple line. Ostomy is pink patent and productive. Good bowel sounds noted. Objective Last Vital Signs Temp 37.1 C 06/09/22 14:44 Pulse 111 H 06/09/22 14:44 Resp 16 06/09/22 14:44 BP 121/78 06/09/22 14:44 Pulse Ox 93 06/09/22 14:44 Laboratory Results - last 24 hr 06/09/22 11:20 WBC 7.91 RBC 5.05 Hgb 15.1 Hct 44.6 MCV 88 MCH 29.9 MCHC 33.9 RDW 16.1 H Plt Count 283 MPV 10.8 Time Spent with Patient Time Spent with Patient: 25-34 minutes Time was spent: preparing to see the patient(eg.review tests), obtaining and/or reviewing separately otained hiistory, ordering medications,tests, procedures, referring, communicating with other health health care sanitary technician, indepentently interpreting results, counseling the patient and care coordination
[2022-06-09 16:29] LABS: Anion Gap 7.5 mmol/L (3-11); BUN 13 mg/dL (7-18); CO2 26.5 mmol/L (21.0-32.0); CREATININE 0.9 mg/dL (0.55-1.02); Calcium 8.9 mg/dL (8.5-10.1); Chloride 103 mmol/L (98-107); Estimated GFR 72.28 (mL/min/1.73m2); Glucose 105 mg/dL (74-106); Sodium 137 mmol/L (136-145)
[2022-06-09 16:37] LABS: Potassium 2.5 mmol/L (3.5-5.1)
[2022-06-09] MEDS: Potassium Chloride 20 MEQ TABCR 40 MEQ PO (17:02)
[2022-06-09] MEDS: Enoxaparin 40 MG/0.4 ML SYR SC (17:42)
[2022-06-09 19:36] LABS: Lab Add On Test DONE
[2022-06-09] MEDS: MacroBID 100 MG CAP PO (19:43)
[2022-06-09 19:46] LABS: Magnesium 2.1 mg/dL (1.8-2.4); PHOSPHORUS 3.1 mg/dL (2.6-4.7)
[2022-06-09 20:20] LABS: BUN 12 mg/dL (7-18); CREATININE 0.8 mg/dL (0.55-1.02); Calcium 8.3 mg/dL (8.5-10.1); Chloride 105 mmol/L (98-107); Estimated GFR 83.26 (mL/min/1.73m2); Glucose 111 mg/dL (74-106); Sodium 137 mmol/L (136-145)
[2022-06-09 20:28] LABS: Potassium 2.6 mmol/L (3.5-5.1)
[2022-06-09] MEDS: POTASSIUM CHLORIDE 10 MEQ/100 ML BAG 100 MEQ IVPB ×2 (22:27→23:34)
[2022-06-09 23:18] VITALS: BP 140/78; PULSE 104; RESP 16; TEMP 36.7; O2SAT 93
[2022-06-10] MEDS: POTASSIUM CHLORIDE 10 MEQ/100 ML BAG 100 MEQ IVPB ×2 (00:38→01:35)
[2022-06-10 05:41] LABS: Anion Gap 7.8 mmol/L (3-11); BUN 11 mg/dL (7-18); CO2 22.2 mmol/L (21.0-32.0); CREATININE 0.7 mg/dL (0.55-1.02); Calcium 8.2 mg/dL (8.5-10.1); Chloride 108 mmol/L (98-107); Estimated GFR 97.72 (mL/min/1.73m2); Glucose 93 mg/dL (74-106); Magnesium 1.9 mg/dL (1.8-2.4); PHOSPHORUS 2.4 mg/dL (2.6-4.7); Potassium 3.1 mmol/L (3.5-5.1); Sodium 138 mmol/L (136-145)
[2022-06-10 07:27] VITALS: BP 121/79; PULSE 109; RESP 16; TEMP 36.6; O2SAT 92
[2022-06-10] MEDS: MacroBID 100 MG CAP PO (08:48)
[2022-06-10] MEDS: Potassium Chloride 20 MEQ TABCR 40 MEQ PO (08:48)
[2022-06-10] MEDS: Normal Saline Flush 10 ML SYR IVP (09:03)
[2022-06-10] MEDS: POTASSIUM CHLORIDE 20 MEQ, POTASSIUM CHLORIDE 10 MEQ 30 MEQ PO (11:12)
--- NOTE | 2022-06-10 11:27 | CMDISCH_ITS ---
- If Service Date Differs Date of service: 06/10/22 Time of Service: 11:27 LACE Index Scoring Tool - Questions: Length of Stay (in days): 4 - 6 Acuity (Admit via E.D.?): Yes E.D. Visits: 1 - Answers: Total Score: 8 Risk of Readmission: Low Risk Care Management Discharge Reason for Hospitalization: Bowel Obstruction Discharge Plan: Danielle will return home with new home health services for nursing for ostomy care and continued teaching. Danielle will have a referral to follow up with Meagan Stevens at [facility] (T-doc individual pension consultant on 06/06/22 when Danielle was admitted) as she has no PCP. She will transport home via private vehicle with family. Patient/Family Education Needs: Review discharge instructions, limitations, activity, ostomy care, discuss Ask Me Three.
--- NOTE | 2022-06-10 11:49 | PT.INTREAT ---
Date of service: 06/10/22 Time of Service: 10:45 PT Notes Visit Reasons: Bowel Obstruction Inpatient Physical Therapy Treatment Note [facility] Date: 06/10/2022 PRECAUTIONS: Activity as tolerated SUBJECTIVE: Danielle is pleasant and agreeable to participating in PT. She states that she hopes to discharge to home later today. OBJECTIVE: Patient cleared for independent transfers and ambulation within her room, without a device. PAIN: No c/o pain BED MOBILITY/TRANSFERS Sit-supine: I with HOB flat Sit-supine: I with HOB flat Sit-stand: I Stand-sit: I Bed-chair: I Chair-bed: I GAIT Assistive Device: No AD Weight bearing: Full Assist: I Distance: 150' Deviation: Slightly antalgic gait, otherwise gait unremarkable STAIRS: Up/down 14x6 using U rail and a step-to pattern with supervision ASSESSMENT: Patient tolerated session without complaint. She continues to demonstrate independence at this time with transfers and short distance ambulation. PLAN: Patient to discharge to home later today. No follow up PT services recommended at this time. TREATMENT CODE/TIME: 10 minutes; 63050 (10:45)
--- NOTE | 2022-06-10 14:03 | DSE_ITS ---
Date of service: 06/10/22 Time of Service: 14:03 DS: Diagnosis Discharge Diagnosis (1) Colostomy in place: Status: Acute Asessment and Plan: Follow-up in the office for staple removal, and removal of the stoma bar (2) Hypokalemia: Status: Acute Asessment and Plan: Potassium supplementation Plan for outpatient basic metabolic panel at office visit (3) Rectal mass: Status: Acute Asessment and Plan: We will need to schedule follow-up outpatient colonoscopy up to evaluate the source of the obstruction Discharge Plan Disposition Patient Disposition: Home Condition: Good Discharge Details Reason For Visit: Bowel Obstruction Admit Date/Time: 06/06/22 13:28 Admit Provider: Shahram Agudelo Attending Provider: Shahram Agudelo Primary Care Provider: Unknown,Unknown Hospital Course Hospital Course: Danielle is a 62-year-old woman presented to the emergency department with a chief complaint of leg swelling, but on further evaluation was found to have a massively distended abdomen. She underwent a CAT scan of the abdomen pelvis robert t suggested a distal colon, proximal rectal bowel obstruction. She was brought to the operating room for attempted colostomy, but in the setting of an unprepped bowel, we are unable to navigate up to the point of obstruction. Therefore, she underwent a diverting sigmoid loop colostomy. Her postoperative course was complicated by some hypokalemia that required potassium repletion and supplementation. Home Meds and New Rx's Prescriptions: New potassium chloride [Klor-Con M20] 20 mEq tablet,ER particles/crystals 20 meq PO BID Qty: 60 0RF Rx Instructions: Take 1 tablet in the morning, and 1 tablet in the evening every day Discharge Instructions Instructions: Colostomy Care (GEN), Colostomy Creation (GEN) Additional Instructions: Danielle, at the time of your admission you had evidence of a near complete large bowel obstruction. We attempted to identify the source using colonoscopy because of concern that this might be cancer. Unfortunately, we were not able to reach the point of the obstruction because your bowels were not present. Therefore, we made the colostomy to allow decompression of your gastrointestinal tract. As you recover, we will need to complete the investigation of the source of your obstruction. Stand Alone Forms: Nursing Discharge Form Referrals: Angely Orr MD [ [facility] STAFF PHYSICIAN] - (A Nurse from 's office will call you to make an Appointment for a hospital follow up and to set up and fill out paperwork to make them your primary care office.) Shahram Agudelo MD [ [facility] STAFF PHYSICIAN] - 06/16/22 11:30 am Activity:: No lifting greater than 1 Equipment/Supplies:: Colostomy supplies Diet:: As Tolerated DS: Summary Time Spent with Patient providing and/or coordinating discharge services: Greater than 30 minutes Status at Discharge Functional status at discharge: independent ambulation Overall status at discharge: patient is back to baseline Mental Status: mental status grossly normal Speech and Movement: speech and movement normal Mood: congruent mood Affect: normal affect Exam Const General: cooperative and comfortable HENMT Head: normal to inspection Neck Neck: normal visual inspection and full ROM Chest Chest: normal inspection of the chest Resp Effort & Inspection: normal respiratory effort Auscultation: clear to auscultation bilaterally GI Inspection: distended Palpation: soft and hernia (Incisional and left inguinal reducible) Percussion: tympanic to percussion Auscultation: normal bowel sounds Extrem Right lower extremity: no edema Left lower extremity: no edema Psych Mental Status: mental status grossly normal Speech and Movement: speech and movement normal Mood: congruent mood Affect: normal affect DS: Data Vitals/I&O Vitals and I&O: Vital Signs Temperature 97.8 F 06/10/22 07:27 Temperature Source Tympanic 06/10/22 07:27 Pulse 109 H 06/10/22 07:27 Pulse Rhythm Regular 06/10/22 08:00 Pulse 102 H 06/05/22 12:30 Respiratory Rate 16 06/10/22 07:27 Respiratory Effort 06/10/22 08:00 Respiratory Depth Normal 06/10/22 08:00 Respiratory Pattern Normal 06/10/22 08:00 Blood Pressure 121/79 06/10/22 07:27 Blood Pressure Mean 93 06/05/22 13:13 Blood Pressure Position Sitting 06/05/22 11:22 Pulse Oximetry 92 06/10/22 07:27 Respiratory End-tidal CO2 24 06/05/22 17:58 Oxygen Delivery Method Room Air 06/10/22 07:27 Oxygen Flow Rate 0 06/10/22 07:27 Pain Level 0 06/10/22 07:27 Comment 06/08/22 15:15 Intake & Output 02/10/2406/10/22 06/10/22 23:59 11:59 23:59 Intake Total 220 / 220 460 / 700 240 / 700 Output Total 600 / 1375 525 / 525 Balance -380 / -1155 -65 / 175 240 / 175 Intake: IV 100 / 100 100 / 100 Oral 120 / 120 360 / 600 240 / 600 Output: Urine 200 / 400 Stool 400 / 975 525 / 525 Other: Urine Color Straw Urine Appearance Clear Clear Urine Odor Normal Data Completed and Pending Labs on day of discharge: Labs from last 24 hours 06/10/22 06/09/22 06/09/22 05:15 20:00 16:05 Sodium 138 137 Potassium 3.1 L 2.6 L* Chloride 108 H 105 Carbon Dioxide 22.2 22.0 Anion Gap 7.8 10.0 BUN 11 12 Creatinine 0.7 0.8 Est GFR (CKD-EPI 2020) 97.72 83.26 Glucose 93 111 H Calcium 8.2 L 8.3 L Phosphorus 2.4 L 3.1 Magnesium 1.9 2.1 Add-On Test Request 06/09/22 06/09/22 16:05 16:05 Sodium 137 Potassium 2.5 L* Chloride 103 Carbon Dioxide 26.5 Anion Gap 7.5 BUN 13 Creatinine 0.9 Est GFR (CKD-EPI 2020) 72.28 Glucose 105 Calcium 8.9 Phosphorus Magnesium Add-On Test Request DONE PFSH All Active Problems Colon obstruction (Acute) Rectal mass (Acute) Coronary artery calcification seen on CAT scan (Acute) Left inguinal hernia (Acute) Emphysema lung (Acute) Hiatal hernia (Chronic) Smoker unmotivated to quit (Acute) Colostomy in place (Acute) Hypokalemia (Acute) Surgical History Status post exploratory laparotomy And diverting loop colostomy 06/26 Social History Smoking/Tobacco Use Status: Current every day Smoking risk assessment performed?: Yes Do you feel safe at home: Yes Time Spent with Patient Time Spent with Patient: <45 minutes Time was spent: counseling the patient
--- NOTE | 2022-06-10 14:18 | INDS_ITS ---
Date of service: 06/10/22 Time of Service: 14:18 PT Notes Visit Reasons: Bowel Obstruction Physical Therapy Inpatient Discharge Summary Date: 06/10/2022 Dates of service: 06/06/2022 through 06/10/2022 This is a clinical summary of care provided for the duration of dates listed above. No charge was made in the completion of this documentation. Referring Doctor:? Shahram Agudelo? PT Orders: PT CONSULT: Limited ability Precautions: Fall. Standard. Activity as tolerated. Patient Profile/Admitting Diagnosis: Danielle is a 62-year-old female with large bowel obstruction and is status post laparotomy with creation of a loop sigmoid colostomy on postoperative day 1. PMHX: All Active Problems? Hypokalemia (Acute) Bowel obstruction (Acute) Social History/Home Situation: Lives alone in a private home with 16 steps to enter with rails on both sides, there are 6 more steps to her bedroom also with rails on both sides.? Independent with all aspects of ADLs prior to surgery.? 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 Equipment Owned/DME: None Subjective: NT. See most recent MARINE CARGO SURVEYOR notes. Objective: General Observation: NT. See most recent MARINE CARGO SURVEYOR notes. Mental Status: NT. See most recent MARINE CARGO SURVEYOR notes. Pain: NT. See most recent MARINE CARGO SURVEYOR notes. Vital Signs: NT. See most recent MARINE CARGO SURVEYOR notes. ROM: Right Upper Extremity: ? Shoulder Flexion WFL. Shoulder abduction WFL. Elbow flexion WFL. Wrist flexion WFL. Functional opening and closing of hand WFL. Left Upper Extremity:? Shoulder Flexion WFL. Shoulder abduction WFL. Elbow flexion WFL. Wrist flexion WFL. Functional opening and closing of hand WFL. Right Lower Extremity: Hip flexion WFL. Hip abduction WFL. Knee flexion WFL. Ankle dorsiflexion WFL. Ankle plantarflexion WFL. Left Lower Extremity: Hip flexion WFL. Hip abduction WFL. Knee flexion WFL. Ankle dorsiflexion WFL. Ankle plantarflexion WFL. Strength: Right Upper Extremity: Shoulder flexors 5/5. Shoulder abductors 5/5. Elbow flexors 5/5. Elbow extensors 5/5. [employer]er strong. Left Upper Extremity: Shoulder flexors 5/5. Shoulder abductors 5/5. Elbow flexors 5/5. Elbow extensors 5/5. [employer]er strong. Right Lower Extremity: Hip flexors 4-/5. Hip abductors 4-/5. Knee flexors 5/5. Knee extensors 4-/5. Ankle dorsiflexors 5/5. Ankle plantarflexors 5/5. Left Lower Extremity: Hip flexors 4-/5. Hip abductors 4-/5. Knee flexors 5/5. Knee extensors 4-/5. Ankle dorsiflexors 5/5. Ankle plantarflexors 5/5. BED MOBILITY/TRANSFERS? Sit-supine: I with HOB flat ? Sit-supine: I with HOB flat Sit-stand: I? Stand-sit: I Bed-chair: I Chair-bed: I? GAIT? Assistive Device: No AD? Weight bearing: Full Assist: I ? Distance:? 150'? Deviation: Slightly antalgic gait, otherwise gait unremarkable ? STAIRS: Up/down 14x6 using U rail and a step-to pattern with supervision? Balance: Static Sitting: Normal Dynamic Sitting: Normal Static Standing: Fair Dynamic Standing: Fair Special Tests: Mobility Limitations Standardized Measure [facility] AM-PAC 6 clicks Basic Mobility Inpatient Short Form: Raw Score: 24? CMS Score: 0% deficit? ? ? Assessment: Patient has demonstrated significant functional improvements during this episode of care as seen by achived goals below. Goals: Goals X1 week 1. Supine-Sit independent MET 2. Sit-Supine independent MET 3. Sit-Stand independent MET 4. Stand-Sit independent with no AD MET 5. Bed-Chair independent with no AD MET 6. Chair-Bed independent with no AD MET 7. Independent gait on level surface with use of no AD for at least 300 feet without report of pain nor dyspnea MET 8. Independent stair negotiation while holding onto B rails for at least 12 steps without report of pain nor dyspnea NOT MET 9. Independent with home exercise program MET 10. Good static and dynamic standing balance/tolerance MET DISCHARGE RECOMMENDATIONS: [] ? Home with no services [] [] ? Home with services [specify] [] ? Home with outpatient PT [] [] ? SNF for continued rehabilitation [] [] ? Envelope Sealer Operator Care [] [] ? SNF versus LTC based on ability to participate and progress [] [X] ? Home without services vs HH PT dependening on progress towards goals TREATMENT CODE/TIME: IA Thank you for the opportunity to participate in the care of this patient. Anne Roberts PT, DPT, CLT [facility] [place], [place]
== END 2022-06-10 15:12 | disposition home or self-care (01) | DRG 330 ==
LOC: ER 14:29 → SUR 14:37 → ER 18:22 → MS 18:27
PROVIDERS: Surgery; Admitting Provider Surgery; Emergency Provider Physician Assistant; Visit Provider Surgery
PROC: 0DJD8ZZ Inspection of Lower Intestinal Tract, Via Natural or Artificial Opening Endoscopic (ICD-10-PCS; CPT 45378; principal; 2022-06-05 14:30)
PROC: 0DJD8ZZ Inspection of Lower Intestinal Tract, Via Natural or Artificial Opening Endoscopic (ICD-10-PCS; CPT 49000; 2022-06-05 14:30)
DX: K56.609 Unspecified intestinal obstruction, unspecified as to partial versus complete obstruction (principal); N39.0 Urinary tract infection, site not specified; K62.89 Other specified diseases of anus and rectum; F17.210 Nicotine dependence, cigarettes, uncomplicated; E87.6 Hypokalemia; R60.0 Localized edema; R63.4 Abnormal weight loss; Z68.24 Body mass index [BMI] 24.0-24.9, adult; N73.6 Female pelvic peritoneal adhesions (postinfective); K44.9 Diaphragmatic hernia without obstruction or gangrene; J43.9 Emphysema, unspecified; K40.90 Unilateral inguinal hernia, without obstruction or gangrene, not specified as recurrent; I25.10 Atherosclerotic heart disease of native coronary artery without angina pectoris
CPT/HCPCS: 45330; 44320; 36415; 74177; 80048; 80053; 83690; 85027; 87077; 87637; 90686; 93005; 97110; 97162; 97530; 99222; 99291; J1650; 71260; 81003; 81015; 82378; 83735; 83880; 84100; 84132; 84484; 85025; 87086; 87186; 93010; J0131; J0690; J1100; J1885; J2270; J2370; J2405; J2704; J3480; J3490

== ENCOUNTER 2022-06-20 16:42 | Outpatient (REF) | payer OTHER, SELFPAY ==
[2022-06-20 20:59] LABS: Anion Gap 8.5 mmol/L (3-11); BUN 17 mg/dL (7-18); CO2 24.5 mmol/L (21.0-32.0); CREATININE 0.7 mg/dL (0.55-1.02); Calcium 9.1 mg/dL (8.5-10.1); Chloride 101 mmol/L (98-107); Estimated GFR 97.72 (mL/min/1.73m2); Glucose 87 mg/dL (74-106); Magnesium 2.2 mg/dL (1.8-2.4); Potassium 5.3 mmol/L (3.5-5.1); Sodium 134 mmol/L (136-145)
== END 2022-06-20 16:43 | disposition home or self-care (01) ==
LOC: LBN 16:42
PROVIDERS: PCP Family Medicine; Visit Provider Surgery
DX: E87.6 Hypokalemia (principal); F17.200 Nicotine dependence, unspecified, uncomplicated; I25.10 Atherosclerotic heart disease of native coronary artery without angina pectoris; J43.9 Emphysema, unspecified; K62.89 Other specified diseases of anus and rectum; Z93.3 Colostomy status; Z98.890 Other specified postprocedural states
CPT/HCPCS: 80048; 83735

== ENCOUNTER 2022-07-01 02:33 | Outpatient (CLI) | payer OTHER, SELFPAY ==
[2022-07-01 13:11] LABS: Anion Gap 8.3 mmol/L (3-11); BUN 18 mg/dL (7-18); CO2 26.7 mmol/L (21.0-32.0); CREATININE 0.7 mg/dL (0.55-1.02); Calcium 9.6 mg/dL (8.5-10.1); Chloride 101 mmol/L (98-107); Estimated GFR 97.72 (mL/min/1.73m2); Glucose 101 mg/dL (74-106); Magnesium 2.2 mg/dL (1.8-2.4); PHOSPHORUS 4.6 mg/dL (2.6-4.7); Potassium 4.7 mmol/L (3.5-5.1); Sodium 136 mmol/L (136-145)
== END 2022-07-01 02:34 | disposition home or self-care (01) ==
LOC: LBO 02:33
PROVIDERS: PCP Family Medicine; Visit Provider Surgery
DX: E87.5 Hyperkalemia (principal); E87.6 Hypokalemia; F17.210 Nicotine dependence, cigarettes, uncomplicated; I25.10 Atherosclerotic heart disease of native coronary artery without angina pectoris; J43.9 Emphysema, unspecified; K44.9 Diaphragmatic hernia without obstruction or gangrene; K56.609 Unspecified intestinal obstruction, unspecified as to partial versus complete obstruction; K62.89 Other specified diseases of anus and rectum; R60.0 Localized edema; Z87.42 Personal history of other diseases of the female genital tract; Z93.3 Colostomy status
CPT/HCPCS: 36415; 80048; 83735; 84100

== ENCOUNTER 2022-07-10 13:27 | Inpatient (IN) | payer OTHER, SELFPAY ==
[2022-07-10 13:41] VITALS: BP 120/55; PULSE 118; RESP 18; TEMP 37.7; O2SAT 100
[2022-07-10] MEDS: Normal Saline 1,000 ML 1000 ML IV (15:49)
[2022-07-10] MEDS: Acetaminophen 325 MG TAB 650 MG PO (15:50)
[2022-07-10 15:57] LABS: Lactate 1.9 mmol/L (0.6-1.4)
[2022-07-10 15:59] LABS: Abs Immature Grans 0.54 10^3/uL (0.0-0.06); HCT 35.5 % (36.0-46.0); HGB 11.4 g/dL (11.2-15.7); MCH 29.3 pg (27.0-33.0); MCHC 32.1 % (32.0-36.0); MCV 91 fL (80-95); MPV 11.1 fL (8.0-11.0); Platelet Count 544 10^3/uL (130-400); RBC 3.89 10^6/uL (3.93-5.22); RDW 15.1 % (11.7-14.6); RDW-SD 49.8 fL; WBC 21.99 10^3/uL (4.4-10.8)
--- NOTE | 2022-07-10 16:00 | DI.CT_ITS ---
Exam(s) CT CHEST/ABD/PEL W EXAM: CT CHEST/ABD/PEL W CLINICAL HISTORY: fever, recent bowel resection with mass TECHNIQUE: Imaging Protocol: Axial computed tomography images with coronal and sagittal reformatted images were created and reviewed CONTRAST MATERIAL: Intravenous: Omnipaque 350 contrast volume:100 mL Oral: No COMPARISON: CT CT CHEST/ABD/PEL W from 06/05/2022 FINDINGS: The examination is limited due to patient motion artifact. CHEST: Tracheobronchial tree: Patent where visualized. Pulmonary parenchyma: Emphysematous changes are present in the lungs. No focal consolidating infiltr ates. No pulmonary nodules. Visualized thyroid gland: There is a multinodular thyroid gland again noted. There is a calcified 1. 6 cm right thyroid nodule. Mediastinum and Arianna: No dominant adenopathy or fluid collection. The esophagus is unremarkable. The re is a large hiatal hernia. Pleura: No effusion or pneumothorax. Heart: The heart is not dilated. Mild coronary artery calcification is present. No pericardial effus ion. Pulmonary arteries: The segmental and subsegmental pulmonary arteries are not adequately evaluated fo r pulmonary emboli. No large central pulmonary embolus is present. Aorta: Thoracic aorta non-dilated. Atherosclerosis is present. Lymph nodes: Within normal limits. Soft tissues: Unremarkable. Bones:Within normal limits for the patient's age. No aggressive osseous lesions are identified. ABDOMEN: Liver: Normal density. No measurable mass. Portal, Superior Mesenteric, and Splenic Veins: Unremarkable. Gallbladder and Biliary Tract: No radiodense calculus or dilation. Pancreas: Normal density, no abnormal calcifications or inflammatory process. Spleen: Normal. Adrenals: There is stable nodularity of the left adrenal gland. The right adrenal gland is unremarka ble. Kidneys: Normal size, contour and axis. Bilateral renal calcifications are seen. The distribution ra ises a question of medullary nephrocalcinosis. No masses seen. Abdominal Aorta: Abdominal portion non-dilated. Atherosclerosis is present. Bowel: There is a left lower quadrant colostomy. The bowel extending just proximal to the colostomy is diffusely thickened. Appendix is unremarkable. Peritoneal Cavity: No ascites, collection or mesenteric inflammatory response. No free air. Lymph Nodes: Within normal limits. Bones: Within normal limits for the patient's age. Soft Tissues: There is a severely abnormal and thickened small bowel loops in the left inguinal canal with dilatation of the lumen with fluid up to 7 cm. There is a small amount of fluid seen adjacent to the bowel loops. PELVIS: Bladder: Symmetric distention, no gross wall thickening. Reproductive Organs: Unremarkable as visualized. Lymph Nodes: Within normal limits. Bones: Within normal limits. IMPRESSION: 1. No acute pulmonary process. 2. There is a severely abnormal thickened bowel loop in the left inguinal canal worrisome for an infe ctious/inflammatory process versus ischemia. Possibility of a small-bowel obstruction cannot be excl uded. 3. Thickening of the wall of the small bowel loop extending into the ostomy these may represent a col itis. RADIATION DOSE DELIVERED: 815.91mGy.cm Total DLP DATA REPOSITORY: All CT scans at this facility are submitted to the National Radiology Data Registry (NRDR) Dose Index Registry (DIR) with the [employer] (ACR). RADIATION OPTIMIZATION: All CT scans at this facility use at least one of these dose optimization te chniques: automated exposure control; mA and/or kV adjustment per patient size (includes targeted exa ms where dose is matched to clinical indication); or iterative reconstruction.
--- NOTE | 2022-07-10 16:03 | ED.GENADUL_ITS ---
Discharge Plan Disposition Patient Disposition: Admit to [facility] Condition: Stable Discharge Details Clinical Impression: Intestinal infection, Colostomy in place Admit Date/Time: 07/10/22 19:28 Admit Provider: Shahram Agudelo Attending Provider: Shahram Agudelo Primary Care Provider: Angely Orr ED Provider: Lukasz Redman Discharge Data Discharge Date/Time-TO BE ENTERED AT DEPARTURE: 07/10/22 20:32 Medical Decision Making <TIMI Tyler - Last Filed: 07/12/22 09:34> Patient is presenting with report of concern regarding her stoma site, she was evaluated by Dr. Agudelo, surgery yesterday and home health was reportedly concerned regarding some bloody drainage in her stoma site, patient denies any pain complaints but is notably 101.5 and febrile in triage, she has tachycardia Will order labs, CT scan of chest abdomen and pelvis as patient is a poor historian, case discussed with Dr. Agudelo who will evaluate patient in the emergency department, suspect that the small amount of blood in her stoma bag secondary to irritation, no evidence of significant GI bleed, will transition care to [facility] pending CTs, labs, and surgical consultation Medical Records Medical records reviewed: Yes I reviewed the patient's medical records. <Lukasz Redman NP - Last Filed: 07/10/22 21:37> Patient is presenting with report of concern regarding her stoma site, she was evaluated by Dr. Agudelo, surgery yesterday and home health was reportedly concerned regarding some bloody drainage in her stoma site, patient denies any pain complaints but is notably 101.5 and febrile in triage, she has tachycardia Will order labs, CT scan of chest abdomen and pelvis as patient is a poor historian, case discussed with Dr. Agudelo who will evaluate patient in the emergency department, suspect that the small amount of blood in her stoma bag secondary to irritation, no evidence of significant GI bleed, will transition care to [facility] pending CTs, labs, and surgical consultation Please see initial documentation from first provider Leila CAPELLAN. Patient signed out to me pending review of labs CT imaging and surgical consultation. Review of labs did show a significant leukocytosis with white count of 21.99, neutrophils of 17.59, and monocytes of 1.76 with even elevated basophil 0.2 to. Patient not anemic but platelet count is also elevated at 544. Lactate slightly elevated at 1.9. CMP overall unremarkable except for albumin of 2.4. Urinalysis does show potential findings of urinary tract infection. Given significant leukocytosis Zosyn order was placed by initial provider. CT imaging reviewed and spoke with radiologist and there is significant intestinal thickening with suggestion of of infection versus ischemia also possible early small bowel obstruction. Called and spoke with Dr. Agudelo who agreed to admit patient. He recommended continued IV Zosyn which bridge orders along with antibiotics were placed and patient admitted. Patient is in agreement with this plan of care. Imaging Data Radiologic Study: Imaging: CT Scan Radiologist's impression: Exam(s) PROCEDURE INFORMATION: Exam: CT Chest With Contrast; Diagnostic Exam date and time: 07/10/2022 6:20 PM Age: 62 years old Clinical indication: Fever and other: Stoma 5 weeks ago; Prior surgery; Surgery date: 1-6 months; Surgery type: Bowel resection TECHNIQUE: Imaging protocol: Diagnostic computed tomography of the chest with contrast. 3D rendering (Not supervised by radiologist): MIP and/or 3D reconstructed images were created by the technologist. Contrast material: OMNIPAQUE 350; Contrast volume: 100 ml; Contrast route: INTRAVENOUS (IV); COMPARISON: CT CHEST/ABD/PEL W 06/05/2022 12:45 PM FINDINGS: Lungs: Unremarkable. No consolidation. No masses. Pleural spaces: Unremarkable. No pneumothorax. No pleural effusion. Heart: Unremarkable. No cardiomegaly. No pericardial effusion. Lymph nodes: Unremarkable. No enlarged lymph nodes. Vasculature: Unremarkable. No aortic aneurysm. Bones/joints: Unremarkable. No acute fracture. Soft tissues: 13 mm nodule right lobe of the thyroid IMPRESSION: No acute findings. Nonurgent findings as noted PROCEDURE INFORMATION: Exam: CT Abdomen And Pelvis With Contrast Exam date and time: 07/10/2022 6:20 PM Age: 62 years old Clinical indication: Fever and other: Stoma 5 weeks ago; Prior surgery; Surgery date: 1-6 months; Surgery type: Bowel resection TECHNIQUE: Imaging protocol: Computed tomography of the abdomen and pelvis with contrast. 3D rendering (Not supervised by radiologist): MIP and/or 3D reconstructed images were created by the technologist. Contrast material: OMNIPAQUE 350; Contrast volume: 100 ml; Contrast route: INTRAVENOUS (IV); COMPARISON: CT CHEST/ABD/PEL W 06/05/2022 12:45 PM FINDINGS: Liver: Normal. No mass. Gallbladder and bile ducts: Normal. No calcified stones. No ductal dilation. Pancreas: Normal. No ductal dilation. Spleen: Normal. No splenomegaly. Adrenal glands: Normal. No mass. Kidneys and ureters: Renal calculi noted No hydronephrosis. Stomach and bowel: There is prominent small bowel loops with fluid levels in the mid abdomen Left-sided colostomy. Abnormal thickening/decompression of the loops of colon extending to the stoma. Moderate stool in the proximal colon. Appendix: No evidence of appendicitis. Intraperitoneal space: Unremarkable. No free air. No significant fluid collection. Vasculature: Unremarkable. No abdominal aortic aneurysm. Lymph nodes: Unremarkable. No enlarged lymph nodes. Urinary bladder: Unremarkable as visualized. Reproductive: Unremarkable as visualized. Bones/joints: Unremarkable. No acute fracture. Soft tissues: Severely abnormally thickened small bowel loop in the left inguinal canal with dilatation of the lumen with fluid within measuring up to 7 cm Small amount of fluid/infiltration inferior to the bowel loops IMPRESSION: Severely abnormal thickened bowel loop in the left inguinal canal worrisome for infectious/inflammatory change versus ischemia. Small adjacent collection can not be completely excluded inferior to the bowel loop Possible proximal developing small-bowel obstruction Abnormal thickening of the colonic loop extending into the ostomy site which may be under distended. Mild colitis not excluded HPI <TIMI Tyler - Last Filed: 07/12/22 09:34> General Date/Time Provider Initiated Documentation: 07/10/22 13:46 . HPI Narrative: This 62-year-old female with history of partial colectomy secondary to rectal mass that was operated on 5 weeks prior to arrival at this facility. She was evaluated last yesterday by surgery and diagnosed with a prolapsed stoma site. Home health nurse was concerned which is why she presents today regarding the appearance of the stoma site. She states she had some bloody drainage but had normal bowel this morning. She denies any pain complaints. She has not checked her temp at home. She denies any weakness or dizziness. Of note this patient is unfortunately poor historian Related Data Home Medications Medication Instructions Recorded Confirmed nystatin 100,000 unit/gram topical 1 applic topical DAILY #30 grams 06/20/22 07/09/22 powder Previous Rx's Medication Instructions Recorded nystatin 100,000 unit/gram topical 1 applic topical DAILY #30 grams 06/20/22 powder Allergies Allergy/AdvReac Type Severity Reaction Status Date / Time No Known Allergies Allergy Verified 07/10/22 13:45 General Stated Complaint: GenMedical TAMI: 3 PFSH <TIMI Tyler - Last Filed: 07/12/22 09:34> All Active Problems (Updated 07/10/22 @ 21:37 by Lukasz Redman NP) Intestinal infection (Acute) Hyperkalemia (Acute) Hypokalemia (Chronic) Colostomy in place (Chronic) Hiatal hernia (Chronic) Emphysema lung (Chronic) minimal Left inguinal hernia (Chronic) Coronary artery calcification seen on CAT scan (Chronic) minimal Rectal mass (Chronic) Tobacco dependence due to cigarettes (Chronic) Bilateral lower extremity edema (Acute) Medical History Hx of endometriosis seen during oophorectomy. Surgical History Branchial cleft cyst S/P left oophorectomy Status post exploratory laparotomy And diverting loop colostomy 06/26 Family History Mother Hypertension Father , 38 Heart disease Colitis Sister No problems noted. Sister No problems noted. Sister No problems noted. Maternal Grandfather , 92 No problems noted. Paternal Grandfather , 54 No problems noted. Maternal Grandmother , 89 No problems noted. Paternal Grandmother , 85 No problems noted. 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 Pets and animals: Yes Pets and animals: cat(s) Sexually active: No Do you think of yourself as: straight/heterosexual Current gender identity: female What is your relationship status?: never How often do you talk on the phone with friends or family?: three or more times per week How often do you get together with friends or relatives?: once per week How often do you attend advent or worship services?: 1-3 times per year Do you belong to any clubs or organized social groups?: no Panel score (0-1 are the most socially isolated patients): 1 What type of physical activity do you participate in: none Yamilex/Zoroastrianism: Pentecostal Special yamilex needs: No Seatbelt use: always Helmet use: Yes Helmet use: always Drive intox or ride w/intox skidder driver: No Do you feel safe at home: Yes Additional Social history: Enjoys reading, walking. Exam <TIMI Tyler - Last Filed: 07/12/22 09:34> Const General: cooperative, comfortable and no acute distress HENMT Head: normal to inspection Resp Effort & Inspection: normal respiratory effort Auscultation: clear to auscultation bilaterally Cardio Rate: regular rate Rhythm: regular rhythm GI Other: No palpable upper abdominal tenderness or lower abdominal tenderness, prolapsed ostomy site with blood noted in effluent bag Neuro General: patient alert and patient oriented x3 Course <TIMI Tyler Last Filed: 07/12/22 09:34> Vital Signs Vital signs: Vital Signs Temperature 37.7 C H 07/10/22 13:41 Pulse 118 H 07/10/22 13:41 Respiratory Rate 18 07/10/22 13:41 Blood Pressure 120/55 L 07/10/22 13:41 Pulse Oximetry 100 07/10/22 13:41 Temperature 37.7 C H 07/10/22 13:41 Temperature Source Oral 07/10/22 13:41 Pulse 118 H 07/10/22 13:41 Respiratory Rate 18 07/10/22 13:41 Respiratory Effort Normal 07/10/22 15:57 Respiratory Depth Normal 07/10/22 15:57 Respiratory Pattern Normal 07/10/22 15:57 Blood Pressure 120/55 L 07/10/22 13:41 Pulse Oximetry 100 07/10/22 13:41 Oxygen Delivery Method Room Air 07/10/22 13:41 Oxygen Flow Rate 0 07/10/22 13:41 Lab/Test Results Lab/Test Results: 07/10/22 15:45 Blood Blood Culture - Pending 07/10/22 15:45 Blood Blood Culture - Pending Laboratory Tests Range/Units 07/10/22 15:45 VBG Lactate (0.6-1.4) mmol/L 1.9 H Sign Out <TIMI Tyler - Last Filed: 07/12/22 09:34> Sign Out Data: Sign Out Comment: pending labs, ct, urinalysis, surgical consult Last updated by Leila Vale PA at 07/10/22 16:09
[2022-07-10 16:08] LABS: Diff Comment Manual Differential; RBC Morphology Normal
[2022-07-10 16:16] LABS: ALT 47 U/L (14-59); AST 36 U/L (15-37); Albumin 2.4 g/dL (3.4-5.0); Alkaline Phosphatase 95 U/L (46-116); Anion Gap 9.3 mmol/L (3-11); BUN 13 mg/dL (7-18); Bilirubin, Total 0.3 mg/dL (0.2-1.0); CO2 26.7 mmol/L (21.0-32.0); CREATININE 0.8 mg/dL (0.55-1.02); Calcium 9.4 mg/dL (8.5-10.1); Chloride 101 mmol/L (98-107); Estimated GFR 83.26 (mL/min/1.73m2); Glucose 115 mg/dL (74-106); Lipase 31 U/L (16-77); Potassium 4.2 mmol/L (3.5-5.1); Sodium 137 mmol/L (136-145); Total Protein 8.2 g/dL (6.4-8.2)
[2022-07-10 16:17] LABS: Absolute Neutrophil Count 17.59 10^3/uL (1.2-6.7); Bands % 0
[2022-07-10 16:18] LABS: Absolute Monocyte Count 1.76 10^3/uL (0.1-0.8); Atypical Lymphocytes % 0
[2022-07-10 16:19] LABS: Absolute Basophil Count 0.22 10^3/uL (0.0-0.2)
[2022-07-10 16:20] LABS: Metamyelocytes % 1
[2022-07-10] MEDS: PIPERACILLIN/TAZO 3.375 GM in Normal Saline 50 ML IVPB ×2 (16:32→21:55)
[2022-07-10 16:38] VITALS: BP 100/55; PULSE 103; RESP 16; TEMP 36.7; O2SAT 98
[2022-07-10 16:38] LABS: COVID-19 PCR Negative (Negative); Influenza A PCR Negative (Negative); Influenza B PCR Negative (Negative); RSV PCR Negative (Negative)
[2022-07-10 16:44] LABS: Source Nasopharynx
[2022-07-10 17:25] LABS: Bilirubin Negative (Negative); Blood Trace-intact (Negative); Clarity Cloudy (Clear); Glucose Negative (Negative); Ketones Negative (Negative); Leukocyte Esterase Moderate (Negative); Nitrite Negative (Negative); Urobilinogen 0.2 mg/dL (Up to 0.2)
[2022-07-10 17:32] LABS: Bacteria Many HPF (Negative); C & S Indicated? No/Sq. Contamination; Casts Negative LPF (Negative); Crystals Negative HPF (Negative); Epithelial Cells Many HPF (Negative); Mucus Trace (Negative); RBC 0-2 HPF (0-2)
[2022-07-10] MEDS: Normal Saline - Diluent 50 ML VIAL IV (18:24)
[2022-07-10] MEDS: Omnipaque 350 MG/ML 100 ML BTL IJ (18:26)
[2022-07-10] MEDS: Normal Saline Flush 10 ML SYR IVP ×2 (18:27→22:33)
--- NOTE | 2022-07-10 18:57 | DI.VRAD_ITS ---
PROCEDURE INFORMATION: Exam: CT Chest With Contrast; Diagnostic Exam date and time: 07/10/2022 6:20 PM Age: 62 years old Clinical indication: Fever and other: Stoma 5 weeks ago; Prior surgery; Surgery date: 1-6 months; Surgery type: Bowel resection TECHNIQUE: Imaging protocol: Diagnostic computed tomography of the chest with contrast. 3D rendering (Not supervised by radiologist): MIP and/or 3D reconstructed images were created by the technologist. Contrast material: OMNIPAQUE 350; Contrast volume: 100 ml; Contrast route: INTRAVENOUS (IV); COMPARISON: CT CHEST/ABD/PEL W 06/05/2022 12:45 PM FINDINGS: Lungs: Unremarkable. No consolidation. No masses. Pleural spaces: Unremarkable. No pneumothorax. No pleural effusion. Heart: Unremarkable. No cardiomegaly. No pericardial effusion. Lymph nodes: Unremarkable. No enlarged lymph nodes. Vasculature: Unremarkable. No aortic aneurysm. Bones/joints: Unremarkable. No acute fracture. Soft tissues: 13 mm nodule right lobe of the thyroid IMPRESSION: No acute findings. Nonurgent findings as noted PROCEDURE INFORMATION: Exam: CT Abdomen And Pelvis With Contrast Exam date and time: 07/10/2022 6:20 PM Age: 62 years old Clinical indication: Fever and other: Stoma 5 weeks ago; Prior surgery; Surgery date: 1-6 months; Surgery type: Bowel resection TECHNIQUE: Imaging protocol: Computed tomography of the abdomen and pelvis with contrast. 3D rendering (Not supervised by radiologist): MIP and/or 3D reconstructed images were created by the technologist. Contrast material: OMNIPAQUE 350; Contrast volume: 100 ml; Contrast route: INTRAVENOUS (IV); COMPARISON: CT CHEST/ABD/PEL W 06/05/2022 12:45 PM FINDINGS: Liver: Normal. No mass. Gallbladder and bile ducts: Normal. No calcified stones. No ductal dilation. Pancreas: Normal. No ductal dilation. Spleen: Normal. No splenomegaly. Adrenal glands: Normal. No mass. Kidneys and ureters: Renal calculi noted No hydronephrosis. Stomach and bowel: There is prominent small bowel loops with fluid levels in the mid abdomen Left-sided colostomy. Abnormal thickening/decompression of the loops of colon extending to the stoma. Moderate stool in the proximal colon. Appendix: No evidence of appendicitis. Intraperitoneal space: Unremarkable. No free air. No significant fluid collection. Vasculature: Unremarkable. No abdominal aortic aneurysm. Lymph nodes: Unremarkable. No enlarged lymph nodes. Urinary bladder: Unremarkable as visualized. Reproductive: Unremarkable as visualized. Bones/joints: Unremarkable. No acute fracture. Soft tissues: Severely abnormally thickened small bowel loop in the left inguinal canal with dilatation of the lumen with fluid within measuring up to 7 cm Small amount of fluid/infiltration inferior to the bowel loops IMPRESSION: Severely abnormal thickened bowel loop in the left inguinal canal worrisome for infectious/inflammatory change versus ischemia. Small adjacent collection can not be completely excluded inferior to the bowel loop Possible proximal developing small-bowel obstruction Abnormal thickening of the colonic loop extending into the ostomy site which may be under distended. Mild colitis not excluded THIS REPORT CONTAINS FINDINGS THAT MAY BE CRITICAL TO PATIENT CARE. The findings were verbally communicated via telephone conference with Юлия DE LA CRUZ at 6:55 PM EST on 07/10/2022. The findings were acknowledged and understood. Dictated and Authenticated by: Akhil Flores MD. Ordering:GREG Dee MD
[2022-07-10 19:20] VITALS: BP 102/54; PULSE 100; RESP 16; O2SAT 98
[2022-07-10 20:27] VITALS: BP 103/58; PULSE 99; RESP 16; O2SAT 98
[2022-07-10 20:35] VITALS: TEMP 37.1
[2022-07-10 20:42] VITALS: BP 106/54; PULSE 97; RESP 18; TEMP 36.9; O2SAT 96
--- NOTE | 2022-07-10 21:30 | W.PM.HP.N ---
Date of service: 07/11/22 Time of Service: 21:30 Assessment and Plan Assessment and plan (1) Intestinal infection: Status: Acute Assessment and plan: Her leukocytosis, fever, and CAT scan findings are all concerning. Clinically, however, she seems to be doing quite well. Aside from the anxiety associated with the prolapse, she really has no major abdominal complaints. She is hungry and would like to eat. I reviewed her images with the AD attending who interpreted the CAT scan. I also reviewed her case, and imaging with the general surgeon on-call at [facility] given the complexity of the situation. For now, we will admit her to the hospital with intravenous fluid resuscitation and broad-spectrum antibiotics. I will give her a dose of Gastrografin to see if we can delineate whether or not the inguinal hernia poses a significant source of obstruction and/or infection. If she comes to require surgery, this will be quite challenging given her recent operation, and the uncertainty of the diagnosis in her pelvis. History of Present Illness History of Present Illness Chief Complaint: Colostomy prolapse Narrative: Danielle is a 62-year-old woman who underwent laparotomy with loop sigmoid colostomy for large bowel obstruction approximately 5 weeks ago. Recovery has been complicated by some challenges managing her colostomy. I saw her in the office yesterday for routine visit for colostomy care, and she was experiencing her first episode of colostomy prolapse. It was easily reducible. Although she was a little frightened by the prolapse, otherwise she was feeling fine. She has been tolerating a diet with good stoma function. She denies any n visiting nurse referred her to the emergency department. Ausea or vomiting. Today, when she was seen by her visiting nurse, she was noted to have some blood and blood clots within the colostomy bag effluent. Additionally, she has been experiencing prolapse through most of the day. In the emergency department, she was found to have a fever. She also had a leukocytosis to approximately 22,000. She underwent a CAT scan of the abdomen and pelvis that raise the possibility of a small bowel obstruction as a result of an incarcerated left-sided inguinal hernia. Review of Systems Constitutional Constitutional: Denies difficulty sleeping, Denies fever(s), Reports increased appetite, Denies lethargy, Denies poor appetite, Denies weakness and Reports weight gain Eyes Eyes: Reports system reviewed and no additional complaints, except as documented ENT Ears, Nose, Mouth, and Throat: Reports system reviewed and no additional complaints, except as documented Cardiovascular Cardiovascular: Denies chest pain, Denies syncope and Denies dyspnea Respiratory Respiratory: Denies chest congestion, Denies cough and Denies dyspnea Gastrointestinal Gastrointestinal: Denies abdominal pain, Denies bloating, Reports change in bowel habits, Reports change in stool character, Denies heartburn, Denies diarrhea, Denies nausea and Denies vomiting Neurologic Neurologic: Denies syncope and Denies weakness PFS All Active Problems (Updated 07/10/22 @ 21:37 by Lukasz Redman NP) Intestinal infection (Acute) Hyperkalemia (Acute) Hypokalemia (Chronic) Colostomy in place (Chronic) Hiatal hernia (Chronic) Emphysema lung (Chronic) minimal Left inguinal hernia (Chronic) Coronary artery calcification seen on CAT scan (Chronic) minimal Rectal mass (Chronic) Tobacco dependence due to cigarettes (Chronic) Bilateral lower extremity edema (Acute) Medical History Hx of endometriosis seen during oophorectomy. Surgical History Branchial cleft cyst S/P left oophorectomy Status post exploratory laparotomy And diverting loop colostomy 06/26 Family History Mother Hypertension Father , 38 Heart disease Colitis Sister No problems noted. Sister No problems noted. Sister No problems noted. Maternal Grandfather , 92 No problems noted. Paternal Grandfather , 54 No problems noted. Maternal Grandmother , 89 No problems noted. Paternal Grandmother , 85 No problems noted. 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 Pets and animals: Yes Pets and animals: cat(s) Sexually active: No Do you think of yourself as: straight/heterosexual Current gender identity: female What is your relationship status?: never How often do you talk on the phone with friends or family?: three or more times per week How often do you get together with friends or relatives?: once per week How often do you attend caodaism or episcopalian services?: 1-3 times per year Do you belong to any clubs or organized social groups?: no Panel score (0-1 are the most socially isolated patients): 1 What type of physical activity do you participate in: none Yamilex/Restorationism: Taoism Special yamilex needs: No Seatbelt use: always Helmet use: Yes Helmet use: always Drive intox or ride w/intox transportation driver: No Do you feel safe at home: Yes Additional Social history: Enjoys reading, walking. Meds Allergies and Home Medications Allergies Allergy/AdvReac Type Severity Reaction Status Date / Time No Known Allergies Allergy Verified 07/10/22 13:45 Home Medications Medication Instructions Recorded Confirmed Type nystatin 100,000 unit/gram topical 1 applic topical DAILY #30 grams 06/20/22 07/09/22 Rx powder Exam Const General: cooperative, comfortable and no acute distress Nutritional Appearance: thin Orientation: alert and awake HENMT Head: normal to inspection Resp Effort & Inspection: normal respiratory effort and able to speak in complete sentences Auscultation: clear to auscultation bilaterally GI Other: The incision is clean, and there are no signs of infection. Stoma is prolapsing, but is easily reducible. I do not see any ulcers, or clear sources of bleeding. The effluent in the colostomy bag is thin, with a little bit of coffee-ground type bleeding. There is a partially reducible left inguinal hernia that is not very tender. Results Imaging Abdomen CT scan report/results: report reviewed and image reviewed Labs 07/10/22 15:45 07/10/22 15:45 Labs: Laboratory Results - last 24 hr 07/10/22 07/10/22 07/10/22 15:45 15:45 15:45 WBC 21.99 H RBC 3.89 L Hgb 11.4 Hct 35.5 L MCV 91 MCH 29.3 MCHC 32.1 RDW 15.1 H Plt Count 544 H MPV 11.1 H Immature Gran % 0.0 Neutrophils % 80.0 Band Neutrophils % 0 Lymphocytes % 10.0 Atypical Lymphs % 0 Monocytes % 8.0 Eosinophils % 0.0 Basophils % 1.0 Metamyelocytes % 1 Nucleated RBC % 0.0 Absolute Neutrophils 17.59 H Absolute Lymphocytes 2.20 Absolute Monocytes 1.76 H Absolute Eosinophils 0.00 Absolute Basophils 0.22 H RBC Morphology Normal VBG Lactate 1.9 H Sodium 137 Potassium 4.2 Chloride 101 Carbon Dioxide 26.7 Anion Gap 9.3 BUN 13 Creatinine 0.8 Est GFR (CKD-EPI 2020) 83.26 Glucose 115 H Calcium 9.4 Total Bilirubin 0.3 AST 36 ALT 47 Alkaline Phosphatase 95 Total Protein 8.2 Albumin 2.4 L Lipase 31 Urine Color Urine Clarity Urine pH Ur Specific [place] Urine Protein Urine Ketones Urine Blood Urine Nitrite Urine Bilirubin Urine Urobilinogen Ur Leukocyte Esterase Urine RBC Urine WBC Ur Epithelial Cells Urine Crystals Urine Bacteria Urine Casts Urine Mucus Ur Culture Indicated? Urine Glucose COVID-19 Source SARS-CoV-2 (PCR) Influenza Type A (PCR) Influenza Type B (PCR) RSV (PCR) 07/10/22 07/10/22 15:51 17:15 WBC RBC Hgb Hct MCV MCH MCHC RDW Plt Count MPV Immature Gran % Neutrophils % Band Neutrophils % Lymphocytes % Atypical Lymphs % Monocytes % Eosinophils % Basophils % Metamyelocytes % Nucleated RBC % Absolute Neutrophils Absolute Lymphocytes Absolute Monocytes Absolute Eosinophils Absolute Basophils RBC Morphology VBG Lactate Sodium Potassium Chloride Carbon Dioxide Anion Gap BUN Creatinine Est GFR (CKD-EPI 2020) Glucose Calcium Total Bilirubin AST ALT Alkaline Phosphatase Total Protein Albumin Lipase Urine Color Yellow Urine Clarity Cloudy Urine pH 6.0 Ur Specific [place] 1.020 Urine Protein 30 H Urine Ketones Negative Urine Blood Trace-intact H Urine Nitrite Negative Urine Bilirubin Negative Urine Urobilinogen 0.2 Ur Leukocyte Esterase Moderate H Urine RBC 0-2 Urine WBC 10-20 H Ur Epithelial Cells Many Urine Crystals Negative Urine Bacteria Many Urine Casts Negative Urine Mucus Trace Ur Culture Indicated? No/Sq. Contamination Urine Glucose Negative COVID-19 Source Nasopharynx SARS-CoV-2 (PCR) Negative Influenza Type A (PCR) Negative Influenza Type B (PCR) Negative RSV (PCR) Negative Last Vital Signs Temp 98.4 F 07/10/22 20:42 Pulse 97 H 07/10/22 20:42 Resp 18 07/10/22 20:42 BP 106/54 L 07/10/22 20:42 Pulse Ox 96 07/10/22 20:42 Time Spent Time spent with Patient: >75 minutes Time was spent: preparing to see the patient(eg.review tests), obtaining and/or reviewing separately otained hiistory, ordering medications,tests, procedures, referring, communicating with other health medical care administrator, indepentently interpreting results and counseling the patient
[2022-07-10] MEDS: Melatonin 3 MG TAB PO (21:55)
[2022-07-10] MEDS: Lactated Ringers 1,000 ML 75 ML IV (22:33)
[2022-07-11] VITALS (88 sets, daily range): BP systolic 86–131; BP diastolic 46–80; PULSE 88–106; RESP 17–29; TEMP 37.1–37.8; O2SAT 91–98
[2022-07-11] MEDS: PIPERACILLIN/TAZO 3.375 GM in Normal Saline 50 ML IVPB ×4 (04:49→22:20)
[2022-07-11 05:54] LABS: HCT 30.6 % (36.0-46.0); HGB 9.7 g/dL (11.2-15.7); MCH 28.8 pg (27.0-33.0); MCHC 31.7 % (32.0-36.0); MCV 91 fL (80-95); MPV 10.3 fL (8.0-11.0); Platelet Count 547 10^3/uL (130-400); RBC 3.37 10^6/uL (3.93-5.22); RDW 14.7 % (11.7-14.6); RDW-SD 49.4 fL; WBC 18.27 10^3/uL (4.4-10.8)
[2022-07-11] MEDS: Gastrografin 120 ML BTL PO (06:23)
--- NOTE | 2022-07-11 09:21 | INITIAL_ITS ---
- If Service Date Differs Date of service: 07/11/22 Time of Service: 09:22 Care Management Initial Assess REASON FOR HOSPITALIZATION:: Intestinal Infection PAST MEDICAL HISTORY/PAST SURGICAL HISTORY:: All Active Problems (Updated 07/10/22 @ 21:37 by Lukasz Redman NP). Intestinal infection (Acute). Hyperkalemia (Acute). Hypokalemia (Chronic). Colostomy in place (Chronic). Hiatal hernia (Chronic). Emphysema lung (Chronic). minimal. Left inguinal hernia (Chronic). Coronary artery calcification seen on CAT scan (Chronic). minimal. Rectal mass (Chronic). Tobacco dependence due to cigarettes (Chronic). Bilateral lower extremity edema (Acute). Medical History . Hx of endometriosis. seen during oophorectomy. Surgical History . Branchial cleft cyst. S/P left oophorectomy. Status post exploratory laparotomy. And diverting loop colostomy 06/26 PREVIOUS FUNCTIONAL STATUS/SOCIAL/FAMILY SUPPORTS:: Danielle lives alone in [place]. 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 Danielle had a bowel obstruction approximately 5 weeks ago and now has an Ostomy and has services through [facility] (RN,PT,[employer].) CURRENT FUNCTIONAL STATUS:: Danielle was lying in bed watching TV when CM met with her. She is awake, pleasant and easy to engage in conversation. She is being closely followed by surgery and nursing noted that she had output from her ostomy today. Per pt, she is getting her ostomy supplies through the mail and having no issues. ADVANCE DIRECTIVES:: None on file Has patient been provided with info about the portal/API?: Yes Did the patient sign up for the portal?: No CODE STATUS:: Full Code INSURANCE COVERAGE / FINANCIAL ISSUES:: [employer] CURRENT HOME/COMMUNITY SERVICES/EQUIPMENT:: [facility] RN/PT/[employer]. Ostomy Supplies, mailorder/pt is unsure of company PRIMARY CARE PHYSICIAN:: Angely Orr POTENTIAL DISCHARGE NEEDS:: Follow up appointment with Dr. Agudelo and PCP. Resmption of [facility] services PATIENT/FAMILY EDUCATION NEEDS:: Review discharge instructions and plan to follow up with community providers. Discuss ask me three. TRANSPORTATION:: Via private vehicle with family. PLAN:: Danielle is being closely monitored and treated in the ICU. She is receiving IV ABX and fluids. She is being followed by Surgery and further medical work up is being done. Per Dr. Agudelo, General Surgery at [facility] is consulted. CM will continue to support discharge planning considerations.
--- NOTE | 2022-07-11 09:58 | W.PM.PROGNOT ---
Date of Service Date of service: 07/11/22 Time of Service: 09:58 Assessment and Plan Assessment and plan (1) Left inguinal hernia: Status: Chronic Assessment and plan: Patient came into the hospital last night with elevated white count and what looked like to be a incarcerated inguinal hernia. This appears to have resolved w/ gastrografin. There is contrast in the osomty. There is good visualization on the flate plate today. -Is seen again this p.m. I discussed her latest admission and some details as to where were going to proceed with the rectal mass. pt is tolerating clears this pm. She has been up walking. No pain or swelling in LLQ. Mild edema/redness in L vuvla region will add in some nystatin poweder as well -if doing well overnight- adat in am saline lock med surg status Flex sig w/ dr. hodges on thursday (case has not been scheduled. property management supervisor needs to be notified) no prep needed (2) Intestinal infection: Status: Acute Assessment and plan: pt feels better clinically and WBC is improved. D#2 zosyn labs in am (3) Rectal mass: Status: Chronic Assessment and plan: pt still does not have a tissue Dg. if she is still in-pt, consider flex sig on thursday w/ bx. (4) Hyperkalemia: Status: Acute Assessment and plan: Resolved (5) Hypokalemia: Status: Chronic Assessment and plan: Resolved (6) Colostomy in place: Status: Chronic Assessment and plan: Mild prolapse. Ostomy is functioning well (7) Hiatal hernia: Status: Chronic (8) Emphysema lung: Status: Chronic (9) Coronary artery calcification seen on CAT scan: Status: Chronic (10) Tobacco dependence due to cigarettes: Status: Chronic (11) Bilateral lower extremity edema: Status: Acute Subjective Subjective Interval history since last seen: Pt is doing well. no headaches. No CP or SOB. no productive cough. no dysuria. no leg pain or swelling. pt had a large output from ostomy this am. She has obvious Gastrografin coming through her ostomy. She denies any pain in the left inguinal region and has no mass or swelling at this point. pt was actually doing quite well until last pm. She has been eating well, has gained some wt, and walking. Exam Resp Effort & Inspection: normal respiratory effort and able to speak in complete sentences Auscultation: clear to auscultation bilaterally Cardio Rate: regular rate Rhythm: regular rhythm GI Other: stoma- has some prolapse. Has had excellent+bs results from gsatrograffin wound: has opening that is .5x.5cm and about 2cm deep. no redness/swelling. serous drainage. Continue irrigating wound and packing. She has a little bit of edema and redness in the vulvar area Patient denies any pain or difficulty urinating. She denies any drainage or bleeding from the rectum. Nursing reports no breakdown Objective Last Vital Signs Temp 36.9 C 07/10/22 20:42 Pulse 99 H 07/11/22 07:01 Resp 22 07/11/22 07:01 BP 110/70 07/11/22 07:01 Pulse Ox 95 07/11/22 07:01 Laboratory Results - last 24 hr 07/10/22 07/10/22 07/10/22 15:45 15:45 15:45 WBC 21.99 H RBC 3.89 L Hgb 11.4 Hct 35.5 L MCV 91 MCH 29.3 MCHC 32.1 RDW 15.1 H Plt Count 544 H MPV 11.1 H Immature Gran % 0.0 Neutrophils % 80.0 Band Neutrophils % 0 Lymphocytes % 10.0 Atypical Lymphs % 0 Monocytes % 8.0 Eosinophils % 0.0 Basophils % 1.0 Metamyelocytes % 1 Nucleated RBC % 0.0 Absolute Neutrophils 17.59 H Absolute Lymphocytes 2.20 Absolute Monocytes 1.76 H Absolute Eosinophils 0.00 Absolute Basophils 0.22 H RBC Morphology Normal VBG Lactate 1.9 H Sodium 137 Potassium 4.2 Chloride 101 Carbon Dioxide 26.7 Anion Gap 9.3 BUN 13 Creatinine 0.8 Est GFR (CKD-EPI 2020) 83.26 Glucose 115 H Calcium 9.4 Total Bilirubin 0.3 AST 36 ALT 47 Alkaline Phosphatase 95 Total Protein 8.2 Albumin 2.4 L Lipase 31 Urine Color Urine Clarity Urine pH Ur Specific [place] Urine Protein Urine Ketones Urine Blood Urine Nitrite Urine Bilirubin Urine Urobilinogen Ur Leukocyte Esterase Urine RBC Urine WBC Ur Epithelial Cells Urine Crystals Urine Bacteria Urine Casts Urine Mucus Ur Culture Indicated? Urine Glucose COVID-19 Source SARS-CoV-2 (PCR) Influenza Type A (PCR) Influenza Type B (PCR) RSV (PCR) 07/10/22 07/10/22 07/11/22 15:51 17:15 05:45 WBC RBC Hgb Hct MCV MCH MCHC RDW Plt Count MPV Immature Gran % Neutrophils % Band Neutrophils % Lymphocytes % Atypical Lymphs % Monocytes % Eosinophils % Basophils % Metamyelocytes % Nucleated RBC % Absolute Neutrophils Absolute Lymphocytes Absolute Monocytes Absolute Eosinophils Absolute Basophils RBC Morphology VBG Lactate 1.0 Sodium Potassium Chloride Carbon Dioxide Anion Gap BUN Creatinine Est GFR (CKD-EPI 2020) Glucose Calcium Total Bilirubin AST ALT Alkaline Phosphatase Total Protein Albumin Lipase Urine Color Yellow Urine Clarity Cloudy Urine pH 6.0 Ur Specific [place] 1.020 Urine Protein 30 H Urine Ketones Negative Urine Blood Trace-intact H Urine Nitrite Negative Urine Bilirubin Negative Urine Urobilinogen 0.2 Ur Leukocyte Esterase Moderate H Urine RBC 0-2 Urine WBC 10-20 H Ur Epithelial Cells Many Urine Crystals Negative Urine Bacteria Many Urine Casts Negative Urine Mucus Trace Ur Culture Indicated? No/Sq. Contamination Urine Glucose Negative COVID-19 Source Nasopharynx SARS-CoV-2 (PCR) Negative Influenza Type A (PCR) Negative Influenza Type B (PCR) Negative RSV (PCR) Negative 07/11/22 05:45 WBC 18.27 H RBC 3.37 L Hgb 9.7 L Hct 30.6 L MCV 91 MCH 28.8 MCHC 31.7 L RDW 14.7 H Plt Count 547 H MPV 10.3 Immature Gran % Neutrophils % Band Neutrophils % Lymphocytes % Atypical Lymphs % Monocytes % Eosinophils % Basophils % Metamyelocytes % Nucleated RBC % Absolute Neutrophils Absolute Lymphocytes Absolute Monocytes Absolute Eosinophils Absolute Basophils RBC Morphology VBG Lactate Sodium Potassium Chloride Carbon Dioxide Anion Gap BUN Creatinine Est GFR (CKD-EPI 2020) Glucose Calcium Total Bilirubin AST ALT Alkaline Phosphatase Total Protein Albumin Lipase Urine Color Urine Clarity Urine pH Ur Specific [place] Urine Protein Urine Ketones Urine Blood Urine Nitrite Urine Bilirubin Urine Urobilinogen Ur Leukocyte Esterase Urine RBC Urine WBC Ur Epithelial Cells Urine Crystals Urine Bacteria Urine Casts Urine Mucus Ur Culture Indicated? Urine Glucose COVID-19 Source SARS-CoV-2 (PCR) Influenza Type A (PCR) Influenza Type B (PCR) RSV (PCR) Time Spent with Patient Time Spent with Patient: >50 minutes Time was spent: preparing to see the patient(eg.review tests), obtaining and/or reviewing separately otained hiistory, ordering medications,tests, procedures, referring, communicating with other health daycare director, indepentently interpreting results, counseling the patient and care coordination
[2022-07-11] MEDS: Normal Saline 500 ML 30 ML IV (11:20)
--- NOTE | 2022-07-11 12:30 | DI.RAD_ITS ---
Exam(s) XR ABDOMEN FLAT PLATE EXAM: 2D digital imaging was performed. CLINICAL HISTORY: gastrographin challenge. COMPARISON: No exams were available for comparison TECHNIQUE: Supine views of the abdomen performed. Two images were obtained. FINDINGS: BOWEL GAS PATTERN: The oral contrast is seen in the left lower quadrant colostomy bag. There is no e vidence of obstruction. CALCIFICATIONS: No radiopaque calcifications. Atherosclerosis is present. OSSEOUS STRUCTURES: Normal for age. OTHER FINDINGS: The lung bases are clear. IMPRESSION: There is no evidence of bowel obstruction. DATA REPOSITORY: RADIATION DOSE DELIVERED:
[2022-07-11] MEDS: Normal Saline Flush 10 ML SYR IVP (16:15)
[2022-07-11] MEDS: Lactated Ringers 1,000 ML 75 ML IV (16:17)
[2022-07-11 17:24] LABS: Lab Add On Test DONE
[2022-07-11 17:35] LABS: BUN 10 mg/dL (7-18); C-Reactive Protein 12.07 mg/dL (0.0-0.3); CREATININE 0.7 mg/dL (0.55-1.02); Calcium 8.7 mg/dL (8.5-10.1); Chloride 105 mmol/L (98-107); Estimated GFR 97.72 (mL/min/1.73m2); Glucose 100 mg/dL (74-106); PHOSPHORUS 4.1 mg/dL (2.6-4.7); Sodium 139 mmol/L (136-145)
[2022-07-11] MEDS: Melatonin 3 MG TAB PO (22:19)
[2022-07-11] MEDS: Nystatin POWDER 15 GM JAR TP (22:19)
[2022-07-12] VITALS (14 sets, daily range): BP systolic 100–121; BP diastolic 42–58; PULSE 86–95; RESP 14–21; TEMP 36.7–38.5; O2SAT 95–97
[2022-07-12] MEDS: PIPERACILLIN/TAZO 3.375 GM in Normal Saline 50 ML IVPB ×4 (04:24→21:13)
[2022-07-12 06:22] LABS: Abs Immature Grans 0.22 10^3/uL (0.0-0.06); Absolute Lymphocyte Count 1.78 10^3/uL (1.2-3.4); Basophils % 0.5; Eosinophils % 1.5; HCT 30.4 % (36.0-46.0); HGB 9.8 g/dL (11.2-15.7); Immature Grans % 1.2; MCHC 32.2 % (32.0-36.0); MCV 90 fL (80-95); Monocytes % 7.9; Neutrophils % 78.9; Platelet Count 603 10^3/uL (130-400); RBC 3.38 10^6/uL (3.93-5.22); RDW 14.8 % (11.7-14.6); WBC 17.76 10^3/uL (4.4-10.8)
[2022-07-12 06:26] LABS: Absolute Basophil Count 0.09 10^3/uL (0.0-0.2); Absolute Eosinophil Count 0.27 10^3/uL (0.0-0.7); Absolute Neutrophil Count 14.01 10^3/uL (1.2-6.7)
[2022-07-12 06:31] LABS: Anion Gap 8.7 mmol/L (3-11); BUN 8 mg/dL (7-18); CO2 25.3 mmol/L (21.0-32.0); CREATININE 0.7 mg/dL (0.55-1.02); Chloride 106 mmol/L (98-107); Estimated GFR 97.72 (mL/min/1.73m2); Glucose 95 mg/dL (74-106); Magnesium 2.1 mg/dL (1.8-2.4); Potassium 3.3 mmol/L (3.5-5.1); Sodium 140 mmol/L (136-145)
[2022-07-12] MEDS: Nystatin POWDER 15 GM JAR TP ×2 (08:00→21:13)
[2022-07-12] MEDS: Lactated Ringers 1,000 ML 75 ML IV (09:55)
--- NOTE | 2022-07-12 10:37 | W.PM.PROGNOT ---
Date of Service Date of service: 07/12/22 Time of Service: 10:30 Assessment and Plan Assessment and plan (1) Colostomy in place: Status: Chronic Assessment and plan: 62 yo woman with complex history of LBO, SBO, inguinal hernia, pelvic mass s/p exploration and diversion with a colostomy. Her abdominal exam is benign. She is HD stable. Not sure what to make of her fevers and WBC . . . At this point she is HD stable, tolerating a diet, upbeat and without complaints, on room air and with a benign exam. Plan: #Advance diet to regular #Heplock IVF #DVT ppx #Continue empiric Abx though unclear if any bacterial problem happening. #She may try another attempt at colonoscopic biopsy on Thursday I'm told - that segment of colon is bypassed and a prep shouldn't really be needed to evaluate the distal colon/rectum at this point. #Wound Care: packing once daily in the midline defects Subjective Subjective Interval history since last seen: No overnight issues or events. Patient has no complaints at bedside. Denies pain. No N/V/SOB. Exam Narrative Exam Narrative: Gen: nontoxic and interactive and comfortable Neuro: AxOx3 Psych: Good mood and afffect, upbeat, good inisght and understanding Abdomen: Soft, nondistended, nontender. Ostomy protruding, but doesn't appear significantly prolapsed. PInk and functioning. Colostomy has air and stool in the bag. Midline still has two small defects that healing by secondary intention. I changed packing in each one. Objective Last Vital Signs Temp 100.0 F H 07/12/22 07:45 Pulse 86 07/12/22 07:47 Resp 14 07/12/22 07:45 BP 111/58 L 07/12/22 07:47 Pulse Ox 95 07/12/22 07:45 Laboratory Results - last 24 hr 07/11/22 07/11/22 07/12/22 05:45 05:45 05:35 WBC RBC Hgb Hct MCV MCH MCHC RDW Plt Count MPV Immature Gran % Neutrophils % Lymphocytes % Monocytes % Eosinophils % Basophils % Nucleated RBC % Absolute Neutrophils Absolute Lymphocytes Absolute Monocytes Absolute Eosinophils Absolute Basophils Sodium 139 140 Potassium 4.0 3.3 L Chloride 105 106 Carbon Dioxide 24.0 25.3 Anion Gap 10.0 8.7 BUN 10 8 Creatinine 0.7 0.7 Est GFR (CKD-EPI 2020) 97.72 97.72 Glucose 100 95 Calcium 8.7 9.0 Phosphorus 4.1 Magnesium 2.0 2.1 C-Reactive Protein 12.07 H Add-On Test Request DONE 07/12/22 05:38 WBC 17.76 H RBC 3.38 L Hgb 9.8 L Hct 30.4 L MCV 90 MCH 29.0 MCHC 32.2 RDW 14.8 H Plt Count 603 H MPV 11.0 Immature Gran % 1.2 Neutrophils % 78.9 Lymphocytes % 10.0 Monocytes % 7.9 Eosinophils % 1.5 Basophils % 0.5 Nucleated RBC % 0.0 Absolute Neutrophils 14.01 H Absolute Lymphocytes 1.78 Absolute Monocytes 1.40 H Absolute Eosinophils 0.27 Absolute Basophils 0.09 Sodium Potassium Chloride Carbon Dioxide Anion Gap BUN Creatinine Est GFR (CKD-EPI 2020) Glucose Calcium Phosphorus Magnesium C-Reactive Protein Add-On Test Request Time Spent with Patient Time Spent with Patient: <25 minutes Time was spent: counseling the patient
[2022-07-12] MEDS: Acetaminophen 500 MG TAB PO ×2 (12:04→21:15)
[2022-07-12] MEDS: Normal Saline Flush 10 ML SYR IVP ×3 (15:33→23:44)
[2022-07-12] MEDS: Melatonin 3 MG TAB PO (21:13)
[2022-07-13] VITALS (11 sets, daily range): BP systolic 100–118; BP diastolic 50–67; PULSE 79–93; RESP 16–22; TEMP 36.2–38.4; O2SAT 95–99
[2022-07-13] MEDS: PIPERACILLIN/TAZO 3.375 GM in Normal Saline 50 ML IVPB ×4 (04:02→19:43)
[2022-07-13] MEDS: Normal Saline Flush 10 ML SYR IVP ×2 (04:03→15:17)
[2022-07-13] MEDS: Nystatin POWDER 15 GM JAR TP ×2 (07:42→19:45)
[2022-07-13] MEDS: Normal Saline-STERILE FIELD 0.9% 10 ML SYR (10:05)
--- NOTE | 2022-07-13 10:54 | W.PM.PROGNOT ---
Date of Service Date of service: 07/13/22 Time of Service: 11:45 Assessment and Plan Assessment and plan (1) Colostomy in place: Status: Chronic Assessment and plan: 62-year-old woman with relatively complex history including pelvic mass, colostomy diversion, inguinal hernia and bowel obstruction. She is not obstructed and her inguinal hernia is reduced. Her colostomy, though it has been prolapsing, it is functioning nicely. She still does not have any tissue diagnosis from the pelvic mass and my understanding is that a procedure may be performed tomorrow to evaluate this further. She should not need a prep since that section has been diverted for more than a month. #Regular diet, n.p.o. at midnight in case of procedure tomorrow #Does not need prep #DVT prophylaxis #Does not need any analgesia #Unclear reason for her presenting leukocytosis and target for the antibiotics but 5-day course should be completed at minimum. #Possible discharge planning for tomorrow afternoon after biopsy procedure Subjective Subjective Interval history since last seen: Nothing new overnight. She is tolerating regular food without any difficulty. She has no complaints. She has no pain. She is having good bowel function and voiding adequately. She has no chest discomfort or shortness of breath. She did have an isolated temperature of around 100 degrees yesterday but that has since resolved. She has had to push her stoma back in a couple of times since it continues to prolapse here and there. Exam Narrative Exam Narrative: General: Nontoxic, comfortable, interactive, good energy and in no distress Neuro: Alert and oriented x3 Psych: Appropriate mood and affect, good insight and understanding Abdomen: Soft, nondistended and nontender. Her stoma is currently not prolapsing and is pink and producing gas and stool. The midline dressing is clean, dry and intact. Nursing changed the packing. Objective Last Vital Signs Temp 99.7 F H 07/13/22 07:48 Pulse 81 07/13/22 07:48 Resp 18 07/13/22 07:48 BP 100/57 L 07/13/22 07:48 Pulse Ox 98 07/13/22 07:48 Laboratory Results - last 24 hr 07/10/22 07/10/22 21:03 21:03 Stool Campylobacter PCR Cancelled Stl C.difficile Tox PCR Cancelled Stool Salmonella PCR Cancelled Stool Shigella PCR Cancelled Shiga Toxin (PCR) Cancelled Time Spent with Patient Time Spent with Patient: 25-34 minutes Time was spent: obtaining and/or reviewing separately otained hiistory, ordering medications,tests, procedures, indepentently interpreting results and counseling the patient
--- NOTE | 2022-07-13 14:39 | NUR.NOTE ---
Nursing Note: This morning patient rang marcelino and found to have prolapsed stoma protruding several inches and colostomy bag leaking and from skin. Bag changed, skin care performed and skin prep and stoma paste applied and new wafer put in place. At approx 13:45 Colostomy bag started leaking around edges again. Old bag and wafer removed and skin cleaned and inspected. Question skin breakdown around lower edge of opening, also incision possibly expanding at corners due to intermittent prolapse of stoma. Needs inspection by surgeon. Information relayed to oncoming RN. Skin prep applied, adhesive powder applied and new wafer and drainage bag put in place.
[2022-07-13] MEDS: Bisacodyl 5 MG TABEC 10 MG PO (19:44)
[2022-07-13] MEDS: POTASSIUM CHLORIDE/D5-0.45NACL 1,000 ML 75 MEQ IV (19:44)
[2022-07-14] VITALS (12 sets, daily range): BP systolic 102–129; BP diastolic 53–66; PULSE 77–100; RESP 14–22; TEMP 36.4–37.1; TEMPC 36.7; O2SAT 94–100; BMI 23.3
--- NOTE | 2022-07-14 00:50 | NUR.NOTE ---
Addendum entered by Briana King RN 07/14/22 00:53: Patient does currently have D5 1/2NS with 20MEQ/KCL/L @ 75ml/hour infusing. Total intake at this time is 325ml, and patient is NPO. Original Note: Nursing Note: Discussed with RAMY Nova RN that patient had low potassium level with am labs drawn on 07/12 and she has not received any replacement prior to beginning Bowel Prep tonight. Suggestion was made to send a page to Dr Parmar who ordered the bowel prep.
[2022-07-14] MEDS: PIPERACILLIN/TAZO 3.375 GM in Normal Saline 50 ML IVPB ×2 (03:52→10:01)
[2022-07-14 09:01] LABS: Anion Gap 7.5 mmol/L (3-11); BUN 7 mg/dL (7-18); CO2 24.5 mmol/L (21.0-32.0); CREATININE 0.8 mg/dL (0.55-1.02); Calcium 8.5 mg/dL (8.5-10.1); Chloride 105 mmol/L (98-107); Estimated GFR 83.26 (mL/min/1.73m2); Glucose 117 mg/dL (74-106); Magnesium 1.9 mg/dL (1.8-2.4); Potassium 3.4 mmol/L (3.5-5.1); Sodium 137 mmol/L (136-145)
[2022-07-14 09:13] LABS: PHOSPHORUS 2.6 mg/dL (2.6-4.7)
[2022-07-14] MEDS: Nystatin POWDER 15 GM JAR TP ×2 (10:01→20:17)
[2022-07-14] MEDS: POTASSIUM CHLORIDE/D5-0.45NACL 1,000 ML 75 MEQ IV (10:12)
--- NOTE | 2022-07-14 11:23 | ANES.PREOP_ITS ---
General Info Date of Service Date Performed: 07/14/22 Height: 5 ft Weight: 54.2 kg Body Mass Index (BMI): 23.3 Surgical Procedure: Operation Date: 07/14/22 11:05 Proposed Procedure Side Surgeon p Rebeka Agudelo MD Meds Allergies and Home Medications Allergies Allergy/AdvReac Type Severity Reaction Status Date / Time No Known Allergies Allergy Verified 07/10/22 13:45 Home Medication Medication Instructions Recorded nystatin 100,000 unit/gram topical 1 applic topical DAILY #30 grams 06/20/22 powder Current Visit Medications: Current Medications Generic Name Dose Route Start Last Admin Trade Name Freq PRN Reason Stop Dose Admin Acetaminophen 500 mg 07/10/22 21:22 07/12/22 21:15 Acetaminophen 500 Mg Tab PO 500 mg Q6H PRN PRN Administration Piperacillin Sod/Tazobactam 50 mls @ 100 mls/hr 07/11/22 10:00 07/14/22 10:01 Sod 3.375 gm/ Sodium Chloride IVPB 100 mls/hr Q6H AMRIK Administration Protocol Sodium Chloride 500 mls @ 0 mls/hr 07/11/22 11:17 07/11/22 17:30 Saline 500ml Bag IV 0 mls/hr PRN PRN Infusion As Directed Potassium Chloride/Sodium Chloride 1,000 mls @ 75 mls/hr 07/14/22 00:05 07/14/22 10:12 Kcl 10meq/D5-0.45% Nacl IV 75 mls/hr INFUSION AMRIK Administration IV Miscellaneous Supplies 1 each 07/10/22 19:30 Iv Access IV DIRECTED AMRIK Melatonin 3 mg 07/10/22 22:00 07/14/22 00:55 Melatonin 3 Mg Tab PO Not Given HS AMRIK Nystatin 15 gm 07/11/22 20:00 07/14/22 10:01 Nystatin Powder 15 Gm Jar TP 1 applic BID AMRIK Administration Sodium Chloride 0 ml 07/10/22 18:27 07/13/22 15:17 Normal Saline Flush 10 Ml Syr IVP 20 ml PRN PRN Administration PFSH Active Problems Active Problems: Problem Status Onset Code Intestinal infection A09 Hyperkalemia E87.5 Hypokalemia E87.[address] Z93.3 Hiatal hernia K44.9 Emphysema lung J43.9 Left inguinal hernia K40.90 Coronary artery calcification seen on CAT scan I25.10 Rectal mass K62.89 Tobacco dependence due to cigarettes F17.210 Bilateral lower extremity edema R60.0 Medical History Medical History Hx of endometriosis seen during oophorectomy. Surgical History Surgical History Branchial cleft cyst S/P left oophorectomy Status post exploratory laparotomy And diverting loop colostomy 06/26 Tobacco Smoking/Tobacco Use Status: Former Tobacco Use Second hand exposure: Yes Alcohol Alcohol Intake: current Alcohol intake frequency: holidays/special occasions only Alcohol type: beer Substance Use Substance use: Never Substance use type: does not use Vital Signs and Lab Results Vital Signs Most Recent Vital Signs in EMR: Most Recent Vital Signs Temp Pulse Resp BP Pulse Ox 36.9 C 79 14 102/59 L 95 07/14/22 03:00 07/14/22 07:50 07/14/22 03:00 07/14/22 07:50 07/14/22 03:00 Lab Results 07/12/22 05:38 07/14/22 08:05 Blood Type / Crossmatch: No Data to Display Complete Blood Count: White Blood Count 17.76 10^3/uL (4.4-10.8) H 07/12/22 05:38 Red Blood Count 3.38 10^6/uL (3.93-5.22) L 07/12/22 05:38 Hemoglobin 9.8 g/dL (11.2-15.7) L 07/12/22 05:38 Hematocrit 30.4 % (36.0-46.0) L 07/12/22 05:38 Platelet Count 603 10^3/uL (130-400) H 07/12/22 05:38 Venous Blood Lactate 1.0 mmol/L (0.6-1.4) 07/11/22 05:45 Complete Metabolic Panel: Sodium 137 mmol/L (136-145) 07/14/22 08:05 Potassium 3.4 mmol/L (3.5-5.1) L 07/14/22 08:05 Chloride 105 mmol/L (98-107) 07/14/22 08:05 Carbon Dioxide 24.5 mmol/L (21.0-32.0) 07/14/22 08:05 BUN 7 mg/dL (7-18) 07/14/22 08:05 Creatinine 0.8 mg/dL (0.55-1.02) 07/14/22 08:05 Est GFR (CKD-EPI 2020) 83.26 (mL/min/1.73m2) 07/14/22 08:05 Magnesium 1.9 mg/dL (1.8-2.4) 07/14/22 08:05 Calcium 8.5 mg/dL (8.5-10.1) 07/14/22 08:05 Albumin 2.4 g/dL (3.4-5.0) L 07/10/22 15:45 Glucose 117 mg/dL (74-106) H 07/14/22 08:05 C-Reactive Protein 12.07 mg/dL (0.0-0.3) H 07/11/22 05:45 Liver Function Panel: Alanine Aminotransferase (ALT/SGPT) 47 U/L (14-59) 07/10/22 15: 45 Aspartate Amino Transf (AST/SGOT) 36 U/L (15-37) 07/10/22 15:45 Coagulation Panel: No Data to Display Cardiac Panel: No Data to Display Arterial Blood Gas: No Data to Display Venous Blood Gas: No Data to Display Pancreas Panel: Lipase 31 U/L (16-77) 07/10/22 15:45 Thyroid Panel: No Data to Display Infectious Disease: Coronavirus (COVID-19)(PCR) Negative (Negative) 07/10/22 15:51 Coronavirus 2019 Source Nasopharynx 07/10/22 15:51 Influenza Virus Type A (PCR) Negative (Negative) 07/10/22 15:5 1 Influenza Virus Type B (PCR) Negative (Negative) 07/10/22 15:5 1 Respiratory Syncytial Virus (PCR) Negative (Negative) 07/10/22 15:51 Blood Cultures: No Data to Display Toxicology Panel: No Data to Display Imaging and Studies Imaging and Studies Study information below may be from another EMR and interpreted by another provider. Please see original notes in EMR for more complete details. EKG Summary: EKG PATIENT NAME: Danielle Moreland #: [id number] ORDERING PROVIDER: Leila Vale #: [id number] PRIMARY CARE PROVIDER:UNKNOWN,UNKNOWN DATE/TIME OF SERVICE: 06/05/22 1148 : 1960PERFORMING LOCATION: [place] APPROVED REPORT Exam: Resting ECG Reason for Exam: rapid heart rate Patient Location: E HR:105 bpm ECG Measurements Heart Rate 105 AXIS ME 132 P 67 QRSd 86 QRS 33 QT 343 T21 QTc 447 Conclusion Sinus tachycardia...rate> 99 ------- <Electronically signed by DYLAN KAISER MD in [place]> E-Sign Date: 06/05/22 E-Sign Time: 2011 ADDENDUM APPROVED REPORT Exam: Resting ECG Reason for Exam: rapid heart rate Patient Location: E HR:105 bpm ECG Measurements Heart Rate 105 AXIS ME 132 P 67 QRSd 86 QRS 33 QT 343 T21 QTc 447 Conclusion Sinus tachycardia...rate> 99 I have reviewed and I agree with the emergency room physician's ECG interpretation. Electronically signed by: <Electronically signed by Mandie Caro M.D. in [place]> 06/06/22 0804 Cosigned by: Anesthesia Assessment and Plan Anesthesia History Personal History: No History of Anesthesia Complications Family History: No Family History of Anesthesia Complications Exercise Tolerance Exercise Tolerance: Metabolic Equivalents>4 Pertinent Negatives Pertinent Negatives: No Symptoms of GERD, No Major Cardiovascular Symptoms or Complaints and No History of CVA/TIA Cardiac & Pulmonary Exam Cardiac Exam: Normal S1/S2 Heart Sounds Pulmonary Exam: Clear Bilateral Breath Sounds Implantable Cardiac Device Does patient have a Pacemaker or an ICD?: No Airway Exam Known Difficult Airway: No Mallampati Class: 2 Mouth Opening: Normal (> 3cm) Thyromental Distance: Greater than 3 cm Neck Range of Motion: Full ROM Neck Circumference: Normal Teeth Condition: Generalized Poor Dentition Airway Comments: Missing uppers only has teeth in lower front. Not loose per patient ASA Classification ASA Score: ASA 2 Emergency Case?: No NPO Status NPO Status: NPO Clears >2 hours, Solids >8 hours Anesthesia Plan Resuscitation Status: Full Code Anesthesia Technique: General Anesthesia Airway Planned: Natural Airway Monitors Used: Standard Monitors
[2022-07-14] MEDS: Lactated Ringers 1,000 ML 30 ML IV (12:20)
--- NOTE | 2022-07-14 13:19 | W.ANESPOSTOP ---
Postoperative Evaluation Date, Time and Location Date Performed: 07/14/22 Time Performed: 13:19 Vital Signs Most Recent Imported Vital Signs: Most Recent Vital Signs Temp Pulse Resp BP Pulse Ox 36.9 C 79 14 102/59 L 95 07/14/22 03:00 07/14/22 07:50 07/14/22 03:00 07/14/22 07:50 07/14/22 03:00 Most Recent Manually Entered Vital Signs: Adult Blood Pressure: 111/54 Heart Rate: 80 Respirations: 20 Pain Score Most Recent Pain Score: Most Recent Pain Score Pain Level 0 07/14/22 03:00 Assessment Mental Status: Awake (Alert & Oriented to Patient Baseline) Airway and Respiratory Function: Patent airway with normal (patient baseline) respiratory exam Cardiovascular Function: Hemodynamically Stable Hydration Status: Adequately Hydrated Nausea & Vomiting: No Nausea or Vomiting Pain: Pt. Denies Any Pain Peripheral Nerve Block: Patient did not receive a nerve block
--- NOTE | 2022-07-14 13:21 | W.ANESPOSTOP ---
Postoperative Evaluation Date, Time and Location Date Performed: 07/14/22 Time Performed: : Patient Location: Intensive Care Unit Vital Signs Most Recent Imported Vital Signs: Most Recent Vital Signs Temp Pulse Resp BP Pulse Ox 36.9 C 79 14 102/59 L 95 07/14/22 03:00 07/14/22 07:50 07/14/22 03:00 07/14/22 07:50 07/14/22 03:00 Most Recent Manually Entered Vital Signs: Adult Blood Pressure: 111/54 Heart Rate: 80 Respirations: 20 Oxygen Saturation (%): 100 Temperature (C): 36.7 C Pain Score (0-10 Scale): 0 Pain Score Most Recent Pain Score: Most Recent Pain Score Pain Level 0 07/14/22 03:00 Assessment Mental Status: Awake (Alert & Oriented to Patient Baseline) Airway and Respiratory Function: Patent airway with normal (patient baseline) respiratory exam Cardiovascular Function: Hemodynamically Stable Hydration Status: Adequately Hydrated Nausea & Vomiting: No Nausea or Vomiting Pain: Pt. Denies Any Pain Peripheral Nerve Block: Patient did not receive a nerve block
--- NOTE | 2022-07-14 14:15 | PHA.REVIEW2 ---
Pharmacy Admission Review - Admission Clinical Review (Last Reviewed 07/10/22 @ 21:32 by Shahram Agudelo MD) Intestinal infection (Acute) Hyperkalemia (Acute) Bilateral lower extremity edema (Acute) No Known Allergies Allergy (Verified 07/10/22 13:45) Resuscitation Status Full Code Height 5 ft Weight 54.2 kg - Renal Dosing Renal Dosing: BUN 7 mg/dL (7-18) 07/14/22 08:05 Creatinine 0.8 mg/dL (0.55-1.02) 07/14/22 08:05 Medications needing adjustments: Reviewed (eCrCl 50 ml/min) - Anticoagulation Anticoagulation: Hgb 9.8 g/dL (11.2-15.7) L 07/12/22 05:38 Hct 30.4 % (36.0-46.0) L 07/12/22 05:38 Plt Count 603 10^3/uL (130-400) H 07/12/22 05:38 Creatinine 0.8 mg/dL (0.55-1.02) 07/14/22 08:05 DVT Prophylaxis: N/A (procedure today) - Opiate Usage Evaluate Pain Scale/Pains Meds: N/A - Relevant Labs Sodium 137 mmol/L (136-145) 07/14/22 08:05 Potassium 3.4 mmol/L (3.5-5.1) L 07/14/22 08:05 Chloride 105 mmol/L (98-107) 07/14/22 08:05 Phosphorus 2.6 mg/dL (2.6-4.7) 07/14/22 08:05 Magnesium 1.9 mg/dL (1.8-2.4) 07/14/22 08:05 C-Reactive Protein 12.07 mg/dL (0.0-0.3) H 07/11/22 05:45 Electrolytes, C-Reactive P, ESR: N/A - DM Control DM Control: Glucose 117 mg/dL (74-106) H 07/14/22 08:05 DM Control: N/A - Cardiac Review BP, HR, EF%: Reviewed - Qtc Review QTc: N/A - IV to PO Switch IV Medications: Reviewed - Home Meds Home Med List reviewed: Reviewed - Current meds Current Medication Order Review: Reviewed (zosyn -- 5 days completed, order DC'd by provider)
--- NOTE | 2022-07-14 14:47 | CMPROGNOTE_ITS ---
- If Service Date Differs Date of service: 07/14/22 Time of Service: 14:47 Care Management Progress Note S/O: Danielle went to the OR today and was out of her room when CM attempted to meet with her. She may discharge tomorrow afternoon if medically ready. No change to overall discharge plan at this time. CM continues to follow. A: 62 year old female admitted to [facility] on 07/10/22 for Intestinal Infection P: Danielle continues to require close monitoring and further medical work up. She went to the OR today for a colonoscopy. Anticipate, Danielle will discharge home with resumption of [facility] RN/PT/OFFSET PLATEMAKER. when medically ready per Surgeon. She will follow up with community providers and discharge plan of care as prescribed. She will transport via private vehicle with family.
[2022-07-14] MEDS: Amoxicillin 875/Clav. 125 TAB PO (20:17)
[2022-07-15 00:24] VITALS: BP 104/82; PULSE 93; O2SAT 85
[2022-07-15 00:35] VITALS: BP 104/82; PULSE 84; RESP 20; TEMP 37.1; O2SAT 96
[2022-07-15 06:00] VITALS: TEMP 37.4
[2022-07-15 06:50] LABS: HCT 36.9 % (36.0-46.0); HGB 11.6 g/dL (11.2-15.7); MCHC 31.4 % (32.0-36.0); MCV 89 fL (80-95); RBC 4.14 10^6/uL (3.93-5.22); RDW 14.8 % (11.7-14.6); RDW-SD 48.7 fL; WBC 16.32 10^3/uL (4.4-10.8)
[2022-07-15 07:13] LABS: ALT 27 U/L (14-59); AST 21 U/L (15-37); Alkaline Phosphatase 86 U/L (46-116); Anion Gap 7.7 mmol/L (3-11); BUN 6 mg/dL (7-18); Bilirubin, Total 0.2 mg/dL (0.2-1.0); CO2 26.3 mmol/L (21.0-32.0); CREATININE 0.7 mg/dL (0.55-1.02); Calcium 9.2 mg/dL (8.5-10.1); Chloride 105 mmol/L (98-107); Estimated GFR 97.72 (mL/min/1.73m2); Glucose 108 mg/dL (74-106); Potassium 3.6 mmol/L (3.5-5.1); Sodium 139 mmol/L (136-145); Total Protein 7.5 g/dL (6.4-8.2)
[2022-07-15 07:21] LABS: Platelet Count 688 10^3/uL (130-400)
--- NOTE | 2022-07-15 08:01 | W.PM.PROGNOT ---
Date of Service Date of service: 07/15/22 Time of Service: 08:01 Assessment and Plan Assessment and plan (1) Colostomy in place: Status: Chronic Assessment and plan: Danielle underwent colonoscopy with biopsies of the pelvic mass. It will take several days for these results to be available. Regular diet DVT prophylaxis She has successfully transition to Augmentin, and will need to continue the course upon discharge. WBC count is trending downward, which is reassuring. Encouraged ambulation and activity OOB D/C home later today Subjective Subjective Interval history since last seen: Arrived with Danielle resting comfortably in bed. She reports she is feeling well and eager to return home. She states that she feels everything went well after her colonoscopy. She states that her colostomy continues to prolapse intermittently however she has been able to successfully reduce it. She denies having any abdominal pain. Exam Const General: cooperative, healthy appearing and comfortable Orientation: alert and oriented x3 Resp Effort & Inspection: normal respiratory effort, no audible wheezes and no cough Objective Last Vital Signs Temp 37.4 C 07/15/22 06:00 Pulse 84 07/15/22 00:35 Resp 20 07/15/22 00:35 BP 104/82 07/15/22 00:35 Pulse Ox 96 07/15/22 00:35 Laboratory Results - last 24 hr 07/14/22 07/14/22 07/15/22 08:05 08:05 06:33 WBC RBC Hgb Hct MCV MCH MCHC RDW Plt Count MPV Sodium 137 139 Potassium 3.4 L 3.6 Chloride 105 105 Carbon Dioxide 24.5 26.3 Anion Gap 7.5 7.7 BUN 7 6 L Creatinine 0.8 0.7 Est GFR (CKD-EPI 2020) 83.26 97.72 Glucose 117 H 108 H Calcium 8.5 9.2 Phosphorus 2.6 Magnesium 1.9 Total Bilirubin 0.2 AST 21 ALT 27 Alkaline Phosphatase 86 Total Protein 7.5 Albumin 2.0 L 07/15/22 06:33 WBC 16.32 H RBC 4.14 Hgb 11.6 Hct 36.9 MCV 89 MCH 28.0 MCHC 31.4 L RDW 14.8 H Plt Count 688 H MPV 10.0 Sodium Potassium Chloride Carbon Dioxide Anion Gap BUN Creatinine Est GFR (CKD-EPI 2020) Glucose Calcium Phosphorus Magnesium Total Bilirubin AST ALT Alkaline Phosphatase Total Protein Albumin Time Spent with Patient Time Spent with Patient: <25 minutes Time was spent: other (See my progress note)
[2022-07-15 08:12] VITALS: BP 111/40; PULSE 84; RESP 20; TEMP 36.7
--- NOTE | 2022-07-15 08:32 | W.PM.PROGNOT ---
Date of Service Date of service: 07/14/22 Time of Service: 07:00 Assessment and Plan Assessment and plan (1) Colostomy in place: Status: Chronic Assessment and plan: I will try colonoscopy today in order to secure causative diagnosis for the rectosigmoid obstruction. Check electrolytes after bowel prep. Subjective Subjective Interval history since last seen: She is hungry today and tolerated bowel prep overnight. Exam GI Other: Stoma bot currently prolapsed. Abdomen is soft. Left inguinal herniais firm but not tender. I cant reduce much today. Objective Last Vital Signs Temp 99.3 F 07/15/22 06:00 Pulse 84 07/15/22 08:12 Resp 20 07/15/22 00:35 BP 111/40 L 07/15/22 08:12 Pulse Ox 96 07/15/22 00:35 Laboratory Results - last 24 hr 07/14/22 07/14/22 07/15/22 08:05 08:05 06:33 WBC RBC Hgb Hct MCV MCH MCHC RDW Plt Count MPV Sodium 137 139 Potassium 3.4 L 3.6 Chloride 105 105 Carbon Dioxide 24.5 26.3 Anion Gap 7.5 7.7 BUN 7 6 L Creatinine 0.8 0.7 Est GFR (CKD-EPI 2020) 83.26 97.72 Glucose 117 H 108 H Calcium 8.5 9.2 Phosphorus 2.6 Magnesium 1.9 Total Bilirubin 0.2 AST 21 ALT 27 Alkaline Phosphatase 86 Total Protein 7.5 Albumin 2.0 L 07/15/22 06:33 WBC 16.32 H RBC 4.14 Hgb 11.6 Hct 36.9 MCV 89 MCH 28.0 MCHC 31.4 L RDW 14.8 H Plt Count 688 H MPV 10.0 Sodium Potassium Chloride Carbon Dioxide Anion Gap BUN Creatinine Est GFR (CKD-EPI 2020) Glucose Calcium Phosphorus Magnesium Total Bilirubin AST ALT Alkaline Phosphatase Total Protein Albumin Time Spent with Patient Time Spent with Patient: <25 minutes Time was spent: preparing to see the patient(eg.review tests) and counseling the patient
[2022-07-15] MEDS: Amoxicillin 875/Clav. 125 TAB PO (08:48)
[2022-07-15] MEDS: Nystatin POWDER 15 GM JAR TP (08:49)
[2022-07-15] MEDS: Normal Saline Flush 10 ML SYR IVP (11:02)
[2022-07-15 14:06] VITALS: O2SAT 99
[2022-07-15 14:08] VITALS: BP 116/51; PULSE 93; RESP 20; TEMP 36.8
--- NOTE | 2022-07-15 16:25 | PDOC.CMPRO ---
- If Service Date Differs Date of service: 07/15/22 Time of Service: 16:25 Care Management Progress Note S/O: Danielle was sitting in her chair when CM met with her. She is anticipating discharging today if medically ready. No change to overall discharge plan at this time. CM continues to follow. A: 62 year old female admitted to [facility] on 07/10/22 for Intestinal Infection P: Danielle continues to require close monitoring and further medical work up. She went to the OR today for a colonoscopy. Anticipate, Danielle will discharge home with resumption of [facility] RN/PT/BALL ASSEMBLER. when medically ready per Surgeon. She will follow up with community providers and discharge plan of care as prescribed. She will transport via private vehicle with family.
--- NOTE | 2022-07-15 16:26 | W.PM.PROGNOT ---
Date of Service Date of service: 07/15/22 Time of Service: 16:26 Assessment and Plan Assessment and plan (1) Colostomy in place: Status: Chronic Assessment and plan: 62-year-old woman with relatively complex history including pelvic mass, colostomy diversion, inguinal hernia and bowel obstruction.? She is not obstructed and her inguinal hernia is reduced.? Her colostomy, though it has been prolapsing, it is functioning nicely.? Unclear reason for leukocytosis. Empirically treating with Augmentin. Will discharge patient on 5 days. She has a short-term follow-up in the surgery office next week. Her abdominal wounds are stable and small. They are small enough that just gauze on top should be sufficient.. #Discharge home Subjective Subjective Interval history since last seen: Patient has no complaints at bedside. She says she's been waiting and hoping to go home. No pain. Ostomy working good. Tolerating regular diet. Inguinal hernia isn't bothering her. Exam Narrative Exam Narrative: Gen: Nontoxic, comfortable Neuro: AxOx3 Psych: Good mood and affect, good insight and understanding Abdomen: Soft, nontender. Objective Last Vital Signs Temp 98.2 F 07/15/22 14:08 Pulse 93 H 07/15/22 14:08 Resp 20 07/15/22 14:08 BP 116/51 L 07/15/22 14:08 Pulse Ox 99 07/15/22 14:06 Laboratory Results - last 24 hr 07/15/22 07/15/22 06:33 06:33 WBC 16.32 H RBC 4.14 Hgb 11.6 Hct 36.9 MCV 89 MCH 28.0 MCHC 31.4 L RDW 14.8 H Plt Count 688 H MPV 10.0 Sodium 139 Potassium 3.6 Chloride 105 Carbon Dioxide 26.3 Anion Gap 7.7 BUN 6 L Creatinine 0.7 Est GFR (CKD-EPI 2020) 97.72 Glucose 108 H Calcium 9.2 Total Bilirubin 0.2 AST 21 ALT 27 Alkaline Phosphatase 86 Total Protein 7.5 Albumin 2.0 L Time Spent with Patient Time Spent with Patient: <25 minutes Time was spent: care coordination
--- NOTE | 2022-07-15 16:28 | CMDISCH_ITS ---
- If Service Date Differs Date of service: 07/15/22 Time of Service: 16:28 LACE Index Scoring Tool - Questions: Length of Stay (in days): 4 - 6 Acuity (Admit via E.D.?): Yes E.D. Visits: 2 - Answers: Total Score: 9 Risk of Readmission: Low Risk Care Management Discharge Reason for Hospitalization: Intestinal Infection Discharge Plan: Danielle is discharged home with resumption of [facility] services. She is transported via private vehicle with her sister. Danielle will follow up with [facility] providers and discharge plan of care as prescribed. Patient/Family Education Needs: Review discharge instructions, limitations, medications and plan to follow up with community providers. Discuss ask me three. Services Needed at Discharge: Home Health Care Services (Resumption of [facility] RN/PT/SHIP SUPERINTENDENT)
--- NOTE | 2022-07-15 17:05 | CHAPLAIN ---
I met with Danielle just prior to her discharged. Her sister was waiting to take her home to [place]. Danielle said she'll be back in about six weeks to have her colostomy reversed. Her surgeon would like her to be stronger for that, Danielle explained. She also has two hernias which will require surgery, she said.
[2022-07-16 10:51] LABS: Prealbumin 8 mg/dL (20-40)
--- NOTE | 2022-07-17 09:38 | W.PM.DSUDISC ---
Date of service: 07/15/22 Time of Service: 06:30 Discharge Plan Disposition Patient Disposition: Home Condition: Good Discharge Details Reason For Visit: Intestinal Infection Admit Date/Time: 07/10/22 19:28 Admit Provider: Shahram Agudelo Attending Provider: Shahram Agudelo Primary Care Provider: Angely Orr Hospital Course Hospital Course: Danielle presented to the ED with colostomy prolapse. It was easily reduced. She was found to have a fever and leukocytosis. CT scan raised concern for bowel obstruction. She was started on broad spectrum antibiotics and admitted to the hospital. Gastrographin challenge refuted diagnosis of bowel obstruction and she was able to tolerate diet without difficulty. UA was negative for UTI and she had not signs of pneumonia. I brought her to the OR for colonoscopy in an effort to obtain tissue diagnosis for her pelvis obstruction. With antegrade colonoscopy from the colostomy site, the scope passed down into the rectum. The most compelling diagnosis at this point is large bowel obstruction from diverticular stricture or extrinsic compression from adhesions. ABX were converted to enteral and she improved enough for discharge home with planned follow up next week. Home Meds and New Rx's Prescriptions: New amoxicillin-pot clavulanate 875-125 mg Tablet 1 tab PO BID Qty: 10 0RF Continued nystatin 100,000 unit/gram powder 1 applic topical DAILY Qty: 30 6RF Rx Instructions: apply to affected area as needed. Discharge Instructions Additional Instructions: Call MD for any returning symptoms or new problems. Otherwise take your usual medications. Regular diet. Regular activity. Try to keep hernia pushed back in as much as possible. Remove the packing from your abdominal wounds tomorrow and no more packing needs to go in it. Referrals: Angely Orr MD [Primary Care Provider] - 08/01/22 1:20 pm Activity:: Activity as Tolerated Equipment/Supplies:: No Equipment Needed Diet:: Normal Diet Discharge Orders Discharge Orders: Discharge Order (Routine); Ordered 07/15/22 Ordered By: Tanner Gale Discharge Data Discharge Date/Time-TO BE ENTERED AT DEPARTURE: 07/15/22 16:50 DS: Diagnosis Discharge Diagnosis (1) Colostomy in place: Status: Chronic Asessment and Plan: Office follow up next week.
--- NOTE | 2022-08-01 14:49 | W.PM.OP ---
Date of service: 07/14/22 Time of Service: 13:00 Operative Note Operative Note DATE OF PROCEDURE: 07/14/22 PRE-OP DIAGNOSIS: Large bowel obstruction POST-OP DIAGNOSIS: same Possible diverticular stricture versus extrinsic compression from adhesions PROCEDURE: Colonoscopy SURGEON: Shahram Agudelo ANESTHESIA TYPE: General:No Airway Refer to Anesthesia Record ESTIMATED BLOOD LOSS: 0 PATHOLOGY: none sent COMPLICATIONS: None Patient was transported to: floor Patient's condition: stable Indications: Danielle is a 62-year-old woman who required a diverting sigmoid colostomy for large bowel obstruction at the pelvic floor. She was scheduled for a follow-up elective colonoscopy in an effort to identify the source of the obstruction, and clear the rest of the colon from other pathology. Findings: Narrowing of the rectosigmoid junction Procedure Description: I began with a digital anorectal examination. This was normal. Next, I inserted a colonoscope through the anus and gently insufflated the rectal vault. This was normal-appearing. I advanced the colonoscope through the rectum and great care to traverse the rectal folds. Approximately 18 cm from the anal verge there are sharp angulation into the sigmoid colon, and despite several efforts to traverse this, I did not feel that I could safely advance the colonoscope maintaining appropriate visualization of the lumen. Therefore, I withdrew the colonoscope, I turned my attention to the loop colostomy on the anterior abdominal wall. I identified the efferne limb of the stoma, and began advancing antegrade towards the rectum. There was some sigmoid diverticulosis. Approximately 10 distal to the stoma site, I was able to gently advance the colonoscope through the true lumen of the colon into the rectum and identified it in the. As I backed the scope out, there did appear to be some narrowing, but without any evidence of mucosal pathology. I did not see anything worrisome for colon cancers in this area. Generally, it appears that there is some sharp angulation of the colon creating a narrowing of the luminal channel. Next, I withdrew the colonoscope, and inserted it into the afferant limb of the stoma. I gently advanced the colonoscope along the ascending, transverse, and ascending colon to the cecum. Ileocecal valve identified. I then withdrew the colonoscope along the length of the previously mentioned colon. There were some intermittent diverticula, but no other polyps or tumors. At that point, I withdrew the colonoscope, we allowed the patient to wake anesthesia and transferred to her regular floor.
== END 2022-07-15 16:50 | disposition home or self-care (01) | DRG 394 ==
LOC: ER 19:50 → ICU 20:36
PROVIDERS: Physician Assistant; Surgery; Admitting Provider Surgery; Emergency Provider Nurse Practitioner Family; PCP Family Medicine; Visit Provider Surgery
PROC: 0DJD8ZZ Inspection of Lower Intestinal Tract, Via Natural or Artificial Opening Endoscopic (ICD-10-PCS; CPT 45378; principal; 2022-07-14 11:00)
DX: K94.09 Other complications of colostomy (principal); A09 Infectious gastroenteritis and colitis, unspecified; K44.9 Diaphragmatic hernia without obstruction or gangrene; J43.9 Emphysema, unspecified; I25.10 Atherosclerotic heart disease of native coronary artery without angina pectoris; F17.210 Nicotine dependence, cigarettes, uncomplicated; R60.0 Localized edema; K40.90 Unilateral inguinal hernia, without obstruction or gangrene, not specified as recurrent; E87.5 Hyperkalemia; E87.6 Hypokalemia; K62.89 Other specified diseases of anus and rectum
CPT/HCPCS: 45330; 44388; 36415; 74177; 80048; 80053; 83690; 85027; 87040; 87493; 87505; 87637; 96361; 96365; 99285; 71260; 74018; 81003; 81015; 83605; 83735; 84100; 84134; 85025; 86140; J2543; J3490

== ENCOUNTER 2022-08-13 02:53 | Outpatient (CLI) | payer OTHER, SELFPAY ==
[2022-08-13 13:24] LABS: Calculated LDL 115 mg/dL (<100); Cholesterol 194 mg/dL (<200); HDL Cholesterol 42 mg/dL (40-60); Triglyceride 185 mg/dL (<150)
[2022-08-14 09:18] LABS: Hepatitis C Ab w Rflx HCV PCR Negative (Negative)
[2022-08-14 09:32] LABS: HIV-1/2 Ag & Ab Screen Negative (Negative)
== END 2022-08-13 02:54 | disposition home or self-care (01) ==
LOC: LBO 02:53
PROVIDERS: PCP Family Medicine; Visit Provider Surgery
DX: Z00.00 Encounter for general adult medical examination without abnormal findings (principal); K40.90 Unilateral inguinal hernia, without obstruction or gangrene, not specified as recurrent; Z93.3 Colostomy status; Z13.6 Encounter for screening for cardiovascular disorders; Z11.4 Encounter for screening for human immunodeficiency virus [HIV]; Z11.59 Encounter for screening for other viral diseases
CPT/HCPCS: 36415; 80061; 86803; 86850; 86900; 86901; 87389

== ENCOUNTER 2022-08-15 07:19 | Inpatient (IN) | payer OTHER, SELFPAY ==
[2022-08-15] VITALS (9 sets, daily range): BP systolic 106–171; BP diastolic 55–88; PULSE 69–105; RESP 16–26; TEMP 36.4–38.1; O2SAT 95–98; BMI 26.2
--- NOTE | 2022-08-15 06:09 | ANES.PREOP_ITS ---
General Info Date of Service Date Performed: 08/15/22 Height: 5 ft Weight: 60.781 kg Body Mass Index (BMI): 26.2 Surgical Procedure: Operation Date: 08/15/22 09:20 Proposed Procedure Side Surgeon p Exploratory Laparotomy, Lysis of Adhesions, Possible Bowel Resection Shahram Agudelo MD s Herniorrhaphy Inguinal Repair Left Shahram Agudelo MD Meds Allergies and Home Medications Allergies Allergy/AdvReac Type Severity Reaction Status Date / Time No Known Allergies Allergy Verified 08/15/22 07:53 Home Medication Medication Instructions Recorded nystatin 100,000 unit/gram topical 1 applic topical DAILY #30 grams 06/20/22 powder Ensure Clear See Rx Instructions .Route 07/23/22 .COMPLEX #3 ea Current Visit Medications: Current Medications Generic Name Dose Route Start Last Admin Trade Name Freq PRN Reason Stop Dose Admin Acetaminophen 1,000 mg 08/15/22 06:00 Acetaminophen 500 Mg Tab PO 08/15/22 23:59 PREOP [facility]K Celecoxib 200 mg 08/15/22 06:00 Celecoxib 200 Mg Cap PO 08/15/22 23:59 PREOP [facility] Gabapentin 600 mg 08/15/22 06:00 Gabapentin 300 Mg Cap PO 08/15/22 23:59 PREOP [facility] Ringer's Solution 1,000 mls @ 80 mls/hr 08/15/22 06:00 IV 08/15/22 23:59 INFUSION [facility] IV Miscellaneous Supplies 1 each 08/15/22 06:00 Iv Access IV 08/15/22 23:59 DIRECTED [facility]RIK Sodium Chloride 0 ml 08/15/22 06:00 Normal Saline Flush 10 Ml Syr IV 08/15/22 23:59 PRN PRN Sodium Chloride 0 ml 08/15/22 06:00 Normal Saline 10 Ml Vial IJ 08/15/22 23:59 DIRECTED PRN Sterile Water 0 ml 08/15/22 06:00 Water,Injection,Sterile 10 Ml Vial IJ 08/15/22 23:59 DIRECTED PRN PFSH Active Problems Active Problems: Problem Status Onset Code Colostomy in place Z93.3 Emphysema lung J43.9 Left inguinal hernia K40.90 Hyperlipidemia E78.5 Bacterial intestinal infection, unspecified A04.9 Other specified diseases of anus and rectum K62.89 Diaphragmatic hernia without obstruction or gangrene K44.9 History of tobacco use Z87.891 Thyroid nodule greater than or equal to 1.5 cm in diameter incidentally noted on imaging study E04.1 Medical History Medical History Coronary artery calcification seen on CAT scan minimal Hiatal hernia Hx of endometriosis seen during oophorectomy. Surgical History Surgical History Branchial cleft cyst S/P left oophorectomy Status post exploratory laparotomy And diverting loop colostomy 06/26 Tobacco Smoking/Tobacco Use Status: Former Tobacco Use Second hand exposure: Yes Alcohol Alcohol Intake: current Alcohol intake frequency: holidays/special occasions only Alcohol type: beer Substance Use Substance use: Never Substance use type: does not use Vital Signs and Lab Results Vital Signs Most Recent Vital Signs in EMR: Temp Pulse Resp BP Pulse Ox 36.7 C 69 16 106/55 L 98 08/15/22 07:54 08/15/22 07:54 08/15/22 07:54 08/15/22 07:54 08/15/22 07:54 Lab Results Blood Type / Crossmatch: Patient ABO/Rh A Negative 08/13/22 Antibody Screen NEGATIVE 08/13/22 Complete Blood Count: No Data to Display Complete Metabolic Panel: No Data to Display Liver Function Panel: No Data to Display Coagulation Panel: No Data to Display Cardiac Panel: No Data to Display Arterial Blood Gas: No Data to Display Venous Blood Gas: No Data to Display Pancreas Panel: No Data to Display Thyroid Panel: No Data to Display Infectious Disease: Coronavirus (COVID-19)(PCR) Negative (Negative) 08/15/22 07:40 Coronavirus 2019 Source Nasal/Nares 08/15/22 07:40 HIV (1&2) Ag and Ab, 4th Generation Negative (Negative) 12:00 Hepatitis C Antibody Negative (Negative) 08/13/22 12:00 Blood Cultures: No Data to Display Toxicology Panel: No Data to Display Imaging and Studies Imaging and Studies Study information below may be from another EMR and interpreted by another provider. Please see original notes in EMR for more complete details. EKG Summary: 06/26: Conclusion Sinus tachycardia...rate> 99 Anesthesia Assessment and Plan Anesthesia History Personal History: No History of Anesthesia Complications Family History: No Family History of Anesthesia Complications Exercise Tolerance Exercise Tolerance: Metabolic Equivalents>4 Cardiac & Pulmonary Exam Cardiac Exam: Normal S1/S2 Heart Sounds Pulmonary Exam: Clear Bilateral Breath Sounds Implantable Cardiac Device Does patient have a Pacemaker or an ICD?: No Airway Exam Known Difficult Airway: No Mallampati Class: 2 Mouth Opening: Normal (> 3cm) Thyromental Distance: Greater than 3 cm Neck Range of Motion: Full ROM Neck Circumference: Normal Teeth Condition: Generalized Poor Dentition Airway Comments: Missing uppers only has teeth in lower front. Not loose per patient ASA Classification ASA Score: ASA 2 Emergency Case?: No NPO Status NPO Status: NPO Clears >2 hours, Solids >8 hours Anesthesia Plan Resuscitation Status: Full Code Anesthesia Technique: General Anesthesia Airway Planned: Endotracheal Tube Pain Management: Epidural (rescue) Monitors Used: Standard Monitors Preoperative Comments:: 62 yo female for exp lap, colostomy revision, and potential inguinal hernia repair. Sig PMHx: hiatal hernia, former smoker, occ EtOH. Previous Anes: - glide 3 grade 2a Discussed epidural now vs rescue. she states she has had minimal pain with previous. Plan for rescue epidural.
[2022-08-15 08:00] LABS: Source Nasal/Nares
[2022-08-15] MEDS: Celecoxib 200 MG CAP PO (08:20)
[2022-08-15] MEDS: Gabapentin 300 MG CAP 600 MG PO (08:20)
[2022-08-15] MEDS: Acetaminophen 500 MG TAB 1000 MG PO (08:21)
[2022-08-15] MEDS: Lactated Ringers 1,000 ML 80 ML IV (08:40)
[2022-08-15 08:50] LABS: COVID-19 PCR Negative (Negative)
--- NOTE | 2022-08-15 08:52 | W.PREOPHP ---
Assessment and Plan Assessment and plan (1) Colostomy in place: Status: Chronic Assessment and plan: We reviewed the operative plan for today, which focuses mainly on relief of the large bowel obstruction, with what I suspect will be pelvic lysis of adhesions. I will also attempt to reverse the colostomy. If possible, I will repair the left inguinal hernia, but I explained that the risk of contaminating hernia mesh will be a major factor with regards to the repair of this defect. History of Present Illness History of Present Illness Chief Complaint: Colon obstruction Narrative: Danielle is a 62-year-old woman with a history of a large bowel obstruction requiring diverting loop sigmoid colostomy. Postoperative course was complicated by some stomal prolapse. Work-up afterwards appears negative for colon or rectal cancer. She is here today for reexploration, pelvic lysis of adhesions, possible colon resection, possible colostomy reversal. PFSH All Active Problems Colostomy in place (Chronic) Emphysema lung (Chronic) minimal Left inguinal hernia (Chronic) Hyperlipidemia (Chronic) Bacterial intestinal infection, unspecified (Acute) Other specified diseases of anus and rectum (Acute) Diaphragmatic hernia without obstruction or gangrene (Acute) History of tobacco use (Acute) 40 pack yr history Thyroid nodule greater than or equal to 1.5 cm in diameter incidentally noted on imaging study (Acute) Medical History Coronary artery calcification seen on CAT scan minimal Hiatal hernia Hx of endometriosis seen during oophorectomy. Surgical History Branchial cleft cyst S/P left oophorectomy Status post exploratory laparotomy And diverting loop colostomy 06/26 Family History Mother Hypertension Father , 38 Heart disease Colitis Sister No problems noted. Sister No problems noted. Sister No problems noted. Maternal Grandfather , 92 No problems noted. Paternal Grandfather , 54 No problems noted. Maternal Grandmother , 89 No problems noted. Paternal Grandmother , 85 No problems noted. 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 Pets and animals: Yes Pets and animals: cat(s) Sexually active: No Do you think of yourself as: straight/heterosexual Current gender identity: female What is your relationship status?: never How often do you talk on the phone with friends or family?: three or more times per week How often do you get together with friends or relatives?: once per week How often do you attend moravian or rastafarian services?: 1-3 times per year Do you belong to any clubs or organized social groups?: no Panel score (0-1 are the most socially isolated patients): 1 What type of physical activity do you participate in: none Frequency: does not exercise Yamilex/Taoist: Gnosticism Special yamilex needs: No Seatbelt use: always Helmet use: Yes Helmet use: always Drive intox or ride w/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 Meds Allergies and Home Medications Allergies Allergy/AdvReac Type Severity Reaction Status Date / Time No Known Allergies Allergy Verified 08/15/22 07:53 Home Medications Medication Instructions Recorded Confirmed Type nystatin 100,000 unit/gram topical 1 applic topical DAILY #30 grams 06/20/22 08/15/22 Rx powder Ensure Clear See Rx Instructions .Route 07/23/22 08/15/22 Rx .COMPLEX #3 ea Exam Const General: cooperative, healthy appearing and comfortable Orientation: awake and oriented x3 Eyes General: appearance normal, both eyes and all related structures Conjunctivae: conjunctivae normal Sclera: sclerae normal Neck Neck: no lymphadenopathy Resp Effort & Inspection: normal respiratory effort and able to speak in complete sentences Auscultation: clear to auscultation bilaterally Cardio Jugular venous pressure: no JVD Rate: regular rate Rhythm: regular rhythm Heart Sounds: S1 normal and S2 normal GI Inspection: non-distended Palpation: soft, no guarding, hernia (Left inguinal) and nontender Auscultation: normal bowel sounds Other: Prolapse of a affarent limb of loop colostomy Skin General skin exam: normal turgor Neuro General: patient alert, patient awake and patient oriented x3 Cognition: normal cognition Extrem Right lower extremity: no edema Left lower extremity: no edema Results Labs Labs: Laboratory Results - last 24 hr 08/15/22 07:40 COVID-19 Source Nasal/Nares SARS-CoV-2 (PCR) Negative Last Vital Signs Temp 98.1 F 08/15/22 07:54 Pulse 69 08/15/22 07:54 Resp 16 08/15/22 07:54 BP 106/55 L 08/15/22 07:54 Pulse Ox 98 08/15/22 07:54
[2022-08-15] MEDS: ceFAZolin 2 GM/50 ML BAG IVPB (09:54)
[2022-08-15] MEDS: Heparin 5,000 UNITS/ML VIAL 5000 UNITS SC ×2 (10:00→21:28)
[2022-08-15] MEDS: Bupivacaine 0.25% Pres-Free 10 ML VIAL (10:37)
[2022-08-15] MEDS: Bupivacaine LIPOSOME/PF 133 MG/10 ML VIAL IJ (10:37)
--- NOTE | 2022-08-15 12:22 | BOWEL_PTH ---
PATIENT: Danielle Moreland LOC: [facility]#:[id number] AGE/SX: 62/F ROOM: 229 RE08/15/[address]: Shahram Agudelo MD : 1960 BED: A DIS: 08/21/2022 SPEC #: [id number] RECD: 08/15/22 16:35 STATUS: TEODORO REQ #: [id number] IRENA: 08/15/22 12:[address]: Shahram Agudelo DEPT: Surgical Specimen RECD BY: Leila Lr ENTERED: 08/15/22 16:36 SP TYPE: Bowel OTHR DR: Angely Orr Tissues: 1 - BOWEL RESECTION(OTHER) Procedures: GROSS AND MICRO LEVEL 5 Comments: [id number]
--- NOTE | 2022-08-15 14:15 | W.ANESPOSTOP ---
Postoperative Evaluation Date, Time and Location Date Performed: 08/15/22 Time Performed: 14:15 Patient Location: PACU Vital Signs Most Recent Imported Vital Signs: Most Recent Vital Signs Temp Pulse Resp BP Pulse Ox 36.6 C 75 22 153/86 H 97 08/15/22 14:00 08/15/22 14:00 08/15/22 14:00 08/15/22 14:00 08/15/22 14:00 Pain Score Most Recent Pain Score: Most Recent Pain Score Pain Level 0 08/15/22 07:54 Assessment Mental Status: Awake (Alert & Oriented to Patient Baseline) Airway and Respiratory Function: Patent airway with normal (patient baseline) respiratory exam Cardiovascular Function: Hemodynamically Stable Hydration Status: Adequately Hydrated Nausea & Vomiting: No Nausea or Vomiting Pain: Pain is tolerable per patient (belly is achy, but doing well. acetaminophen ordered. ) Peripheral Nerve Block: Patient did not receive a nerve block
[2022-08-15] MEDS: ACETAMINOPHEN 1,000 MG/100 ML BTL 400 MG IVPB (14:20)
--- NOTE | 2022-08-15 14:40 | ROE_ITS ---
Date of service: 08/15/22 Time of Service: 14:40 Operative Note Operative Note DATE OF PROCEDURE: 08/15/22 PRE-OP DIAGNOSIS: Large bowel obstruction POST-OP DIAGNOSIS: same PROCEDURE: Exploratory laparotomy, lysis of adhesions, sigmoid colon resection, reciting of new end colostomy, closure of left inguinal hernia SURGEON: Shahram Agudelo ASSISTING SURGEON: Kristal Falk CITIZEN PARTICIPATION SPECIALIST: Dahiana Martin ANESTHESIA TYPE: Local By Surgeon and General LMA/ETT Refer to Anesthesia Record ESTIMATED BLOOD LOSS: 150 PATHOLOGY: other (Sigmoid colon with loop colostomy) COMPLICATIONS: None Patient was transported to: PACU Patient's condition: stable Indications: Danielle is a 62-year-old woman who previously presented with an acute large bowel obstruction, and concern for rectosigmoid colon mass. She underwent an emergency diverting loop sigmoid colostomy. Subsequent work-up failed to revealed any malignancy. Furthermore, her postoperative course was complicated by prolapse of the loop colostomy. After extensive conversations regarding operative management, she provided informed consent for another exploratory laparotomy. Findings: Dense pelvic adhesions causing external compression and obstruction of the rectosigmoid colon Procedure Description: After the induction of general endotracheal anesthesia, and insertion of a Hernandes urinary catheter using aseptic technique, Danielle was placed in lithotomy p ositioning, taking great care to pad all the points of contact. Careful attention was made to her legs as they were placed in the stirrups. The anterior abdominal wall and perineum were then prepped and draped in the usual fashion. The previous loop colostomy, which was prolapsed, was gently reduced, and sterile gauze and occlusive dressings were used on the skin level. These were prepped into the field. I started by opening the midline longitudinal incision. I excised her previous midline scar. I dissected down to the fascia and opened it along the length of the incision entering the peritoneal cavity really along the cephalad portion well away from her previous surgery. There were some adhesions along the lower portion of her previous incision that were easily lysed. These were mostly involving the small bowel. Once this was all freed, the incision was extended down towards her pubic symphysis. There was a previous midline incisional hernia that was incorporated into the opening. Next, I used a Bookwalter self-retaining retracting system to gain better exposure of the peritoneal cavity. The transverse colon was elevated and retracted slightly cephalad to identify the root of the small bowel mesentery. Small bowel was quickly examined, appeared to be free of any injuries, and it was mobilized up into the mid epigastrium. This allowed exposure of the pelvis. There were dense adhesions of the midline of the pelvis that seem to involve the sigmoid colon towards the confluence with the rectum. Additionally, same adhesions tethered cecum and appendix towards the mid pelvis near the sacral promontory. In order to start mobilizing, identified area of normal cecum on the lateral sidewall, and incised the white line of Toldt here allowing me to dissect the cecum down around the appendix and mesoappendix into the body of adhesions. The tissue was extraordinarily thick, and dissection was quite tedious. Great care was taken to avoid any injury to the iliacs, as the dissection came around the terminal ileum and down towards the midportion of the pelvis. As I continued this dissection into the pelvis, it came up along an edge of the sigmoid colon. I was able to free the terminal ileum, appendix, and cecum up from this mass, and reflected up into the abdomen. With this complete, I tried to continue dissection of the sigmoid colon down onto the rectum. In order to fully examine the sigmoid colon, I turned my attention back towards the previous loop sigmoid colostomy. This provided a reliable point of reference. Dissected caudally along the left pelvic sidewall. This brought me down towards the known left-sided inguinal hernia. There was nothing within the hernia sac at this point, aside from round ligament. Although the opening of the defect was quite sizable. Bringing this dissection down towards the pelvis revealed the left ovary. Suspensory ligaments and fallopian tube were not obvious. Mostly, this was a large adhesive mass. Staying close to the sigmoid colon towards the rectum, I was able to mobilize her left side of it is a bit. However, the anterior portion was fused with adhesive tissue, as was the right and posterior portion of the proximal rectum. It was impossible to find any plane to safely identify the iliac vessels or ureters in this area of the pelvis. After extensive consideration, I felt the safest thing at this point was to complete the resection of the sigmoid colon, which is known to have diverticular disease. Therefore, I developed a plane just posterior to the distal sigmoid colon at the rectosigmoid junction. Using a TA stapler, I divided the rectum, and staying close to the sigmoid colon, I used a LigaSure device to divide the mesentery back towards the loop colostomy. With this dis section complete, I turned my attention back to the pelvis. I considered multiple options for reestablishing GI continuity, but there really was not a safe distal target for any colorectal anastomosis. I felt that further dissection in the pelvis would put Danielle at great risk for iatrogenic injury that would be challenging to manage, if not life-threatening. Therefore, I believe that management permanent colostomy is the best option at this point. Since Danielle's loop colostomy had given her such difficulty based on its location and prolapse, I felt that excision of this with the sigmoid specimen, and creation of descending end colostomy was the best option, since she had a good site in the left upper quadrant that appeared to be a good target for stomal seating and management. Therefore, I turned my attention to the external colostomy. I divided the mucocutaneous border with Bovie electrocautery and dissected down through the skin and soft tissues completely mobilizing the colostomy from the anterior abdominal sidewall. I continued this dissection down into the peritoneal cavity. I divided the descending colon with a CANDIDA stapler, and divided the mesentery with sequential fires of the LigaSure. I passed off the sigmoid colon, which included the previous loop sigmoid colostomy as a specimen. I then turned my attention back to the pelvis. I irrigated it. Since the origin of the left inguinal hernia was empty, I did want to attempt closure here. I felt that implantation of a permanent mesh was a poor option given the work on the colon that we had been performing. Therefore, I used interrupted Vicryl stitches to obliterate the opening of the internal ring as best I could, and imbricated peritoneal lining over the repair. This appeared to block access to the origin of the internal ring and inguinal canal. Again, the pelvis was irrigated. It appeared hemostatic. The staple line on the proximal portion of the rectum appeared to be below the area of pelvic a dhesions, and I felt that risk of staple line failure because of a distal obstruction was quite low. I turned my attention back to creation of the loop colostomy. We excised a portion of the left anterior abdominal sidewall including the skin and subcutaneous tissues. I dissected down to the fascia which was opened in a cruciate fashion, and the end of the descending colon was delivered through this defect. Khoi splenic flexure was quite mobile. In fact there really was not much splenic flexure at all. Therefore, in order to try to minimize chances of stomal prolapse, I pexied the tenia of the colon to the peritoneum of the left upper quadrant. We then closed the midline laparotomy incision with running 2-0 PDS stitches. The skin and subcutaneous tissues were irrigated, and I closed the deep soft tissue layer with interrupted Vicryl stitches. We closed the skin with surgical stapler. The left lower quadrant loop sigmoid colostomy site was irrigated. The fascia was cleared, and it was closed with running 2-0 PDS stitches as well. The deeper soft tissues and skin were left open to minimize the chances of surgical site infection. They were packed with wet gauze. Next, I turned my attention to maturation of the end colostomy. The colon was trimmed down towards the skin level and divided with the Bovie device. Colostomy was matured with interrupted Vicryl stitches. A colostomy device was placed, and external bandages were placed over the left lower quadrant incision in the midline incision. We used a raji negative pressure wound dressing for the midline. Danielle was then awoken from anesthesia, extubated, and transferred to the recovery unit.
[2022-08-15] MEDS: Lactated Ringers 1,000 ML 75 ML IV (14:44)
[2022-08-15] MEDS: Acetaminophen 325 MG TAB 650 MG PO (22:59)
[2022-08-16] MEDS: Lactated Ringers 1,000 ML 75 ML IV ×2 (02:43→15:22)
[2022-08-16] MEDS: Acetaminophen 325 MG TAB 650 MG PO ×3 (05:31→21:14)
[2022-08-16 06:30] VITALS: BP 101/61; PULSE 88; RESP 19; TEMP 37.5; O2SAT 96
[2022-08-16 06:41] LABS: Abs Immature Grans 0.02 10^3/uL (0.0-0.06); Absolute Basophil Count 0.03 10^3/uL (0.0-0.2); Absolute Eosinophil Count 0.01 10^3/uL (0.0-0.7); Absolute Lymphocyte Count 1.67 10^3/uL (1.2-3.4); Absolute Monocyte Count 0.79 10^3/uL (0.1-0.8); Absolute Neutrophil Count 7.61 10^3/uL (1.2-6.7); Basophils % 0.3; Eosinophils % 0.1; HCT 33.7 % (36.0-46.0); HGB 10.8 g/dL (11.2-15.7); Immature Grans % 0.2; Lymphocytes % 16.5; MCH 27.1 pg (27.0-33.0); MCV 85 fL (80-95); MPV 11.2 fL (8.0-11.0); Monocytes % 7.8; Neutrophils % 75.1; Platelet Count 302 10^3/uL (130-400); RBC 3.98 10^6/uL (3.93-5.22); RDW 15.3 % (11.7-14.6); RDW-SD 47.1 fL; WBC 10.13 10^3/uL (4.4-10.8)
[2022-08-16 07:10] LABS: Anion Gap 5.1 mmol/L (3-11); BUN 21 mg/dL (7-18); CO2 24.9 mmol/L (21.0-32.0); Calcium 8.7 mg/dL (8.5-10.1); Chloride 104 mmol/L (98-107); Glucose 111 mg/dL (74-106); Potassium 4.1 mmol/L (3.5-5.1); Sodium 134 mmol/L (136-145)
[2022-08-16] MEDS: Heparin 5,000 UNITS/ML VIAL 5000 UNITS SC ×2 (09:19→21:10)
[2022-08-16 12:11] VITALS: BP 129/77; PULSE 92; RESP 18; TEMP 37.8; O2SAT 96
[2022-08-16 15:10] VITALS: BP 160/83; PULSE 103; RESP 20; TEMP 38.1; O2SAT 96
[2022-08-16 15:25] VITALS: TEMP 38.1
[2022-08-16 15:38] VITALS: TEMP 37.8
--- NOTE | 2022-08-16 17:18 | PDOC.CMIN ---
- If Service Date Differs Date of service: 08/16/22 Time of Service: 17:18 Care Management Initial Assess REASON FOR HOSPITALIZATION:: Large Bowel Obstruction PAST MEDICAL HISTORY/PAST SURGICAL HISTORY:: All Active Problems. Colostomy in place (Chronic). Emphysema lung (Chronic). minimal. Left inguinal hernia (Chronic). Hyperlipidemia (Chronic). Bacterial intestinal infection, unspecified (Acute). Other specified diseases of anus and rectum (Acute). Diaphragmatic hernia without obstruction or gangrene (Acute). History of tobacco use (Acute). 40 pack yr history. Thyroid nodule greater than or equal to 1.5 cm in diameter incidentally noted on imaging study (Acute). Medical History. Coronary artery calcification seen on CAT scan. minimal. Hiatal hernia. Hx of endometriosis. seen during oophorectomy. Surgical History. Branchial cleft cyst. S/P left oophorectomy. Status post exploratory laparotomy. And diverting loop colostomy 06/26 PREVIOUS FUNCTIONAL STATUS/SOCIAL/FAMILY SUPPORTS:: Danielle lives alone in [place]. 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 Her mother, Marva, lives locally and is supportive. CURRENT FUNCTIONAL STATUS:: Danielle was sitting up in bed when CM met with her. She stated that she is feeling pretty good today. She stated that she had surgery yesterday, and saw the MD today, who stated that she is not yet medically cleared. CM reviewed her discharge plan, and Danielle stated that she does not currently have HH services, but is interested in having HH RN again, as this was helpful after her previous admission. CM will continue to follow. ADVANCE DIRECTIVES:: None on file, CM will offer forms prior to discharge. Has patient been provided with info about the portal/API?: Yes Did the patient sign up for the portal?: No CODE STATUS:: Full Code INSURANCE COVERAGE / FINANCIAL ISSUES:: [employer] CURRENT HOME/COMMUNITY SERVICES/EQUIPMENT:: Ostomy supplies, which she orders online. PRIMARY CARE PHYSICIAN:: Angely Orr POTENTIAL DISCHARGE NEEDS:: Evaluations for further needs, follow up appointments. PATIENT/FAMILY EDUCATION NEEDS:: Review discharge instructions and limitations, discussion of self care needs including ask me three. ANTICIPATED BARRIERS TO DISCHARGE:: None. TRANSPORTATION:: Via private vehicle by family. PLAN:: Anticipate Danielle will return home once she is medically cleared. Her sister will drive her home via private vehicle. She will follow up with her PCP and dsicharge plan of care. CM will continue to follow.
--- NOTE | 2022-08-16 18:31 | W.PM.PROGNOT ---
Date of Service Date of service: 08/16/22 Time of Service: 07:45 Assessment and Plan Assessment and plan (1) Colostomy in place: Status: Chronic Assessment and plan: I think Danielle is doing very well after laparotomy with lysis of adhesions. The ostomy looks healthy this morning, and there is a small amount of stool, but not much gas in the bag today. Into the packing in the left lower quadrant. Incision is clean, healthy appearing, and there is no signs of any bleeding. I will repeat some labs tomorrow to make sure that the hemoglobin is okay after the operation. We will continue to advance her diet, and have her ambulate a little bit today. Subjective Subjective Interval history since last seen: Danielle is awake watching television this morning. He has been sipping on some liquids without any nausea or vomiting. She says her pain is well controlled. Exam GI Palpation: soft and tender Percussion: normal to percussion Auscultation: hypoactive bowel sounds Objective Last Vital Signs Temp 100.0 F H 08/16/22 15:38 Pulse 103 H 08/16/22 15:10 Resp 20 08/16/22 15:10 BP 160/83 H 08/16/22 15:10 Pulse Ox 96 08/16/22 15:10 Laboratory Results - last 24 hr 08/16/22 08/16/22 06:14 06:14 WBC 10.13 RBC 3.98 Hgb 10.8 L Hct 33.7 L MCV 85 MCH 27.1 MCHC 32.0 RDW 15.3 H Plt Count 302 MPV 11.2 H Immature Gran % 0.2 Neutrophils % 75.1 Lymphocytes % 16.5 Monocytes % 7.8 Eosinophils % 0.1 Basophils % 0.3 Nucleated RBC % 0.0 Absolute Neutrophils 7.61 H Absolute Lymphocytes 1.67 Absolute Monocytes 0.79 Absolute Eosinophils 0.01 Absolute Basophils 0.03 Sodium 134 L Potassium 4.1 Chloride 104 Carbon Dioxide 24.9 Anion Gap 5.1 BUN 21 H Creatinine 1.0 Est GFR (CKD-EPI 2020) 63.70 Glucose 111 H Calcium 8.7 Time Spent with Patient Time Spent with Patient: 25-34 minutes Time was spent: preparing to see the patient(eg.review tests) and counseling the patient
[2022-08-16 23:09] VITALS: BP 122/71; PULSE 88; RESP 16; TEMP 37.6; O2SAT 95
[2022-08-17] MEDS: Acetaminophen 325 MG TAB 650 MG PO ×3 (03:14→16:53)
[2022-08-17 03:19] VITALS: TEMP 37.4
[2022-08-17] MEDS: Lactated Ringers 1,000 ML 75 ML IV ×2 (04:43→18:34)
[2022-08-17 06:18] VITALS: BP 151/79; PULSE 91; RESP 18; TEMP 37.1; O2SAT 95
[2022-08-17 06:29] LABS: HGB 10.5 g/dL (11.2-15.7); MCH 27.1 pg (27.0-33.0); MCHC 31.8 % (32.0-36.0); MCV 85 fL (80-95); MPV 11.3 fL (8.0-11.0); Platelet Count 297 10^3/uL (130-400); RBC 3.88 10^6/uL (3.93-5.22); RDW 15.5 % (11.7-14.6); WBC 11.96 10^3/uL (4.4-10.8)
[2022-08-17 07:54] VITALS: BP 119/66; PULSE 86; RESP 20; TEMP 37.1; O2SAT 93
[2022-08-17] MEDS: Heparin 5,000 UNITS/ML VIAL 5000 UNITS SC ×2 (09:21→21:38)
[2022-08-17] MEDS: traMADol 50 MG TAB PO ×2 (09:22→21:38)
--- NOTE | 2022-08-17 10:54 | W.PM.PROGNOT ---
Date of Service Date of service: 08/17/22 Time of Service: 10:54 Assessment and Plan Assessment and plan (1) Colostomy in place: Status: Chronic Assessment and plan: We will change the packing in the left lower quadrant a little more frequently today. Assuming that wound stays clean, we can plan on delayed primary closure in the next day or so. I will repeat the CBC again tomorrow. The abdominal pain today is a little concerning, but this could just be her tap block wearing off. If the white blood cell count is up tomorrow, or she has any signs of fevers, then I will consider CAT scan in the next day or so Subjective Subjective Interval history since last seen: Danielle is having a little bit more abdominal pain today. Generally it is tolerable. She is up and out of bed to the chair already, and tolerating some food. Exam GI Other: Abdomen is soft, nondistended, and only mildly tender. Incisions look clean. Objective Last Vital Signs Temp 98.7 F 08/17/22 07:54 Pulse 86 08/17/22 07:54 Resp 20 08/17/22 07:54 BP 119/66 08/17/22 07:54 Pulse Ox 93 08/17/22 07:54 Laboratory Results - last 24 hr 08/17/22 05:50 WBC 11.96 H RBC 3.88 L Hgb 10.5 L Hct 33.0 L MCV 85 MCH 27.1 MCHC 31.8 L RDW 15.5 H Plt Count 297 MPV 11.3 H Time Spent with Patient Time Spent with Patient: <25 minutes Time was spent: ordering medications,tests, procedures and counseling the patient
[2022-08-17 15:01] VITALS: BP 116/75; PULSE 96; RESP 16; TEMP 37.3; O2SAT 96
[2022-08-17 23:10] VITALS: BP 148/81; PULSE 104; RESP 16; TEMP 38; O2SAT 94
--- NOTE | 2022-08-18 | DI.CT_ITS ---
Exam(s) CT ABDOMEN PELVIS W EXAM: CT ABDOMEN PELVIS W CLINICAL HISTORY: rule out pelvic abscess, ABD PAIN. TECHNIQUE: Imaging Protocol: Axial computed tomography images with coronal and sagittal reformatted images were created and reviewed CONTRAST MATERIAL: Intravenous: Omnipaque-350 100cc Oral: Yes COMPARISON: CT CT CHEST/ABD/PEL W from 07/10/2022 FINDINGS: VISUALIZED LUNG BASES: There is atelectasis in the lung bases. No pleural effusions.. ABDOMEN: There has been interval surgery-laparotomy. There has been creation of a left-sided ostomy. There i s a suture line the low pelvis appearing to be in the sigmoid region. Suspect that this is rectum ove rsewn. There is edema around this level but no distinct abscess. There are multiple dilated bowel lo ops in the abdomen pelvis as well as small amount ascitic fluid. There is free intraperitoneal air e vident. There is no portal vein gas. LIVER: There are no focal hepatic lesions evident. No dilated intrahepatic ducts. GALLBLADDER/BILIARY: No obvious gallbladder pathology. CBD is not dilated. PANCREAS: No evidence of pancreatic mass nor dilatation of the pancreatic duct. SPLEEN: Spleen is not enlarged. No obvious intrasplenic lesions. Splenic and portal veins are paten t. ADRENALS: There is symmetrical thickening of both adrenal glands involving both limbs of both adrenal glands. KIDNEYS:There are nonobstructive calculi in the upper pole and midpole of the left kidney. No other focal renal findings. No hydro nephrosis nor hydroureter. No solid renal masses. ABDOMINAL AORTA: Abdominal aorta is not enlarged. LYMPH NODES:There is no retroperitoneal nor paraaortic adenopathy. PELVIS: LYMPH NODES: There is no intrapelvic nor inguinal adenopathy. REPRODUCTIVE: Uterus size age-appropriate. No obvious ovarian masses. URINARY BLADDER: No calculi nor obvious masses evident OSSEOUS: No fractures and no significant osseous lesions. Multilevel degenerative disc disease in lumbar spine IMPRESSION: 1. Compared to the prior CT scan 07/10/2022 there has been interval laparotomy with what appears to b e oversewn rectum and previously present large mass in the left inguinal canal is no longer seen. Th ere is a left-sided ostomy. There are multiple dilated bowel loops throughout the abdomen and pelvis . There is abundant free intraperitoneal air evident and there is small amount of ascitic fluid. Co rrelation with time since surgery recommended. I do not see an obvious focal abscess. 2. Nonobstructive calculi noted in the left kidney. No calculi in the opposite-right kidney. No hydro nephrosis on either side. Urinary bladder is not distended. 3. Atelectasis in the lung bases noted. Findings discussed by phone with the surgeon. RADIATION DOSE DELIVERED: 736.85mGy.cm Total DLP DATA REPOSITORY: All CT scans at this facility are submitted to the National Radiology Data Registry (NRDR) Dose Index Registry (DIR) with the [employer] (ACR). RADIATION OPTIMIZATION: All CT scans at this facility use at least one of these dose optimization te chniques: automated exposure control; mA and/or kV adjustment per patient size (includes targeted exa ms where dose is matched to clinical indication); or iterative reconstruction.
[2022-08-18 03:52] VITALS: TEMP 37.4
[2022-08-18 06:19] LABS: HGB 10.5 g/dL (11.2-15.7); MCHC 31.8 % (32.0-36.0); MCV 85 fL (80-95); MPV 11.1 fL (8.0-11.0); Platelet Count 306 10^3/uL (130-400); RBC 3.89 10^6/uL (3.93-5.22); RDW 15.4 % (11.7-14.6); RDW-SD 47.2 fL
--- NOTE | 2022-08-18 06:59 | W.PM.PROGNOT ---
Date of Service Date of service: 08/18/22 Time of Service: 06:59 Assessment and Plan Assessment and plan (1) Colostomy in place: Status: Chronic Assessment and plan: I will check a CAT scan of the abdomen and pelvis today, looking for a postoperative abscess. If that is the case, we will start some antibiotics, and deal with it accordingly. If the CAT scan is negative, I will check urinalysis given her recent Hernandes catheterization, although she seems symptomatic with regards to dysuria or other symptoms. Subjective Subjective Interval history since last seen: Danielle had some increased right-sided lower abdominal pain overnight. It was a little bit more in intensity compared to yesterday, but seems to have leveled out a bit this morning. She is up and ambulating to use the bathroom. She denies any nausea or vomiting. Exam GI Other: Abdomen soft and nondistended. Ostomy looks okay. Objective Last Vital Signs Temp 99.3 F 08/18/22 03:52 Pulse 104 H 08/17/22 23:10 Resp 16 08/17/22 23:10 BP 148/81 H 08/17/22 23:10 Pulse Ox 94 08/17/22 23:10 Laboratory Results - last 24 hr 08/18/22 06:10 WBC 17.50 H RBC 3.89 L Hgb 10.5 L Hct 33.0 L MCV 85 MCH 27.0 MCHC 31.8 L RDW 15.4 H Plt Count 306 MPV 11.1 H Time Spent with Patient Time Spent with Patient: <25 minutes Time was spent: preparing to see the patient(eg.review tests), ordering medications,tests, procedures and counseling the patient
[2022-08-18 07:05] VITALS: BP 138/81; PULSE 101; RESP 19; TEMP 37.4; O2SAT 94
[2022-08-18] MEDS: Lactated Ringers 1,000 ML 75 ML IV (07:47)
[2022-08-18] MEDS: Breeza Beverage 473 ML BTL PO ×2 (08:11→08:12)
[2022-08-18] MEDS: Omnipaque 350 MG/ML 50 ML BTL PO (08:12)
[2022-08-18] MEDS: Omnipaque 350 MG/ML 500 ML BTL-Imaging package IJ (09:20)
[2022-08-18] MEDS: Normal Saline - Diluent 50 ML VIAL IJ (09:21)
--- NOTE | 2022-08-18 10:26 | PDOC.CMPRO ---
- If Service Date Differs Date of service: 08/18/22 Time of Service: 10:26 Care Management Progress Note S/O: Danielle was sitting up in her chair, visiting with her mother when CM met with her. She is awake and easy to engage in conversation. Per pt, she gets her ostomy supplies through [facility] mail order. She is hoping the surgeon will change her appliance to a 1 piece system because it would be less expensive. Per Danielle, her deductible is >$6,000 and she submitted a patient assistance application last week. Anticipate, Danielle will discharge home with [facility] RN services when medically ready. Per pt, she has 20 steps to go up to get into her house and may require a lift assist. A: 62 year old female admitted to [facility] on 08/15/22 for Large Bowel Obstruction P: Anticipate, Danielle will return home with new [facility] RN services once she is medically cleared. Her sister will drive her home via private vehicle but she may require a lift assist because she has 20 steps to go up. She will follow up with her PCP and discharge plan of care. CM will continue to follow.
[2022-08-18] MEDS: Heparin 5,000 UNITS/ML VIAL 5000 UNITS SC ×2 (11:04→21:05)
--- NOTE | 2022-08-18 11:48 | PHA.REVIEW2 ---
Pharmacy Admission Review - Admission Clinical Review No Known Allergies Allergy (Verified 08/15/22 07:53) Resuscitation Status Full Code Height 5 ft Weight 60.5 kg - Renal Dosing Renal Dosing: BUN 21 mg/dL (7-18) H 08/16/22 06:14 Creatinine 1.0 mg/dL (0.55-1.02) 08/16/22 06:14 Medications needing adjustments: Reviewed (Crcl ~47.35 mL/min current meds okay) - Anticoagulation Anticoagulation: Hgb 10.5 g/dL (11.2-15.7) L 08/18/22 06:10 Hct 33.0 % (36.0-46.0) L 08/18/22 06:10 Plt Count 306 10^3/uL (130-400) 08/18/22 06:10 Creatinine 1.0 mg/dL (0.55-1.02) 08/16/22 06:14 DVT Prophylaxis: Reviewed Medications: Heparin Therapeutic Anticoagulation: N/A - Opiate Usage Evaluate Pain Scale/Pains Meds: Reviewed Scheduled Bowel Reg ordered if on Opiates?: No (provider aware) - Relevant Labs Sodium 134 mmol/L (136-145) L 08/16/22 06:14 Potassium 4.1 mmol/L (3.5-5.1) 08/16/22 06:14 Chloride 104 mmol/L (98-107) 08/16/22 06:14 Electrolytes, C-Reactive P, ESR: Reviewed - DM Control DM Control: Glucose 111 mg/dL (74-106) H 08/16/22 06:14 DM Control: N/A (no DM noted in medical history, no A1c on file) - Cardiac Review BP, HR, EF%: Reviewed (HR has been normal to high and BP has been up and down some so far this admission.) - Qtc Review QTc: N/A - IV to PO Switch IV Medications: Reviewed - Home Meds Home Med List reviewed: Reviewed Relevent Home Meds Not ordered & why?: nystatin - Current meds Current Medication Order Review: Intervened (discontinued duplicate med orders) - Comments Comments/Follow Ups: Watch HR, BP, SCr, labs and for med changes (possible renal dose adjustments)
[2022-08-18 13:44] LABS: Bilirubin Negative (Negative); Blood Small (Negative); Clarity Clear (Clear); Glucose Negative (Negative); Ketones Trace mg/dL (Negative); Leukocyte Esterase Negative (Negative); Nitrite Negative (Negative); Urobilinogen 0.2 mg/dL (Up to 0.2); pH 6.5 (5-8)
[2022-08-18 13:52] LABS: Bacteria Negative HPF (Negative); C & S Indicated? No; Casts 0-2 Hyaline LPF (Negative); Crystals Negative HPF (Negative); Epithelial Cells Rare HPF (Negative); Mucus Negative (Negative); WBC Negative HPF (0-5)
[2022-08-18 15:01] VITALS: BP 121/69; PULSE 100; RESP 17; TEMP 37.6; O2SAT 94
[2022-08-18] MEDS: traMADol 50 MG TAB PO (22:51)
[2022-08-18 23:50] VITALS: BP 108/58; PULSE 103; RESP 18; TEMP 37.9; O2SAT 92
[2022-08-19] MEDS: Lactated Ringers 1,000 ML 75 ML IV (00:17)
[2022-08-19 06:23] LABS: HCT 31.1 % (36.0-46.0); HGB 9.8 g/dL (11.2-15.7); MCH 26.6 pg (27.0-33.0); MCHC 31.5 % (32.0-36.0); MCV 85 fL (80-95); MPV 10.6 fL (8.0-11.0); Platelet Count 351 10^3/uL (130-400); RBC 3.68 10^6/uL (3.93-5.22); RDW 15.7 % (11.7-14.6); RDW-SD 48.2 fL; WBC 13.56 10^3/uL (4.4-10.8)
[2022-08-19 08:12] VITALS: BP 105/66; PULSE 92; RESP 20; TEMP 37.1; O2SAT 94
[2022-08-19 08:28] LABS: Lab Add On Test DONE
[2022-08-19 09:03] LABS: C-Reactive Protein > 25.00 mg/dL (0.0-0.3)
--- NOTE | 2022-08-19 09:19 | PDOC.CMPRO ---
- If Service Date Differs Date of service: 08/19/22 Time of Service: 09:19 Care Management Progress Note S/O: Danielle was lying in bed visiting with her mom and her sister when CM met with her. She is awake and engages in conversation. Danielle reports that she is feeling better today, and is happy she can now drink fluids. Danielle may require a lift assist to get into her apartment because she has 20 steps to get into her house. Dr. Agudelo is notified and will order a PT eval. Anticipate, Danielle will discharge home with [facility] RN,PT/OT/[facility] [employer] services (if indicated) when medically ready. A: 62 year old female admitted to [facility] on 08/15/22 for Large Bowel Obstruction P: Anticipate, Danielle will return home with new [facility] RN/PT/OT/[facility] services (if indicated) once she is medically cleared. Her sister will drive her home via private vehicle but she may require a lift assist because she has 20 steps to go up to get into her apartment. She will follow up with her PCP and discharge plan of care. CM will continue to follow.
[2022-08-19] MEDS: Heparin 5,000 UNITS/ML VIAL 5000 UNITS SC ×2 (09:31→21:05)
--- NOTE | 2022-08-19 10:17 | PGE_ITS ---
Date of Service Date of service: 08/19/22 Time of Service: 10:18 Assessment and Plan Assessment and plan (1) Colostomy in place: Status: Chronic Assessment and plan: White blood count is trending downward today. We will continue to monitor. CRP is elevated we will trend this over the next few days. She denies having any abdominal pain. She started producing stool through her colostomy. We will begin clear liquid diet. Encouraged activity out of bed and ambulation. Patient seen and examined this afternoon Agree with above Patient feels well. Passing a lot of gas through the ostomy ABDO: soft, ND, appropriately TTP along the incision ostomy is pink, there is some liquid stool in it Plan: advance diet to full liquids in the morning Repeat WBC count Home once Leukocystosis is resolved and she is tolerating a diet Subjective Subjective Interval history since last seen: Arrived with Danielle sitting in the chair. She states she is feeling well denies any abdominal pain. She states that the colostomy is going well. She states that she has been producing some stool. She denies having any fevers, chills or night sweats Exam Const General: cooperative, healthy appearing and comfortable Orientation: alert and oriented x3 Resp Effort & Inspection: normal respiratory effort, no audible wheezes and no cough GI Inspection: normal to inspection Palpation: soft, no guarding and nontender Other: Colostomy-small amount of semiformed brown stool noted. Objective Last Vital Signs Temp 37.1 C 08/19/22 08:12 Pulse 92 H 08/19/22 08:12 Resp 20 08/19/22 08:12 BP 105/66 08/19/22 08:12 Pulse Ox 94 08/19/22 08:12 Laboratory Results - last 24 hr 08/18/22 08/19/22 08/19/22 13:30 06:05 06:05 WBC 13.56 H RBC 3.68 L Hgb 9.8 L Hct 31.1 L MCV 85 MCH 26.6 L MCHC 31.5 L RDW 15.7 H Plt Count 351 MPV 10.6 C-Reactive Protein Urine Color Yellow Urine Clarity Clear Urine pH 6.5 Ur Specific [place] 1.010 Urine Protein 30 H Urine Ketones Trace H Urine Blood Small H Urine Nitrite Negative Urine Bilirubin Negative Urine Urobilinogen 0.2 Ur Leukocyte Esterase Negative Urine RBC 3-5 H Urine WBC Negative Ur Epithelial Cells Rare Urine Crystals Negative Urine Bacteria Negative Urine Casts 0-2 Hyaline Urine Mucus Negative Ur Culture Indicated? No Urine Glucose Negative Add-On Test Request DONE 08/19/22 06:05 WBC RBC Hgb Hct MCV MCH MCHC RDW Plt Count MPV C-Reactive Protein > 25.00 H Urine Color Urine Clarity Urine pH Ur Specific [place] Urine Protein Urine Ketones Urine Blood Urine Nitrite Urine Bilirubin Urine Urobilinogen Ur Leukocyte Esterase Urine RBC Urine WBC Ur Epithelial Cells Urine Crystals Urine Bacteria Urine Casts Urine Mucus Ur Culture Indicated? Urine Glucose Add-On Test Request Time Spent with Patient Time Spent with Patient: <25 minutes Time was spent: obtaining and/or reviewing separately otained hiistory, indepentently interpreting results and counseling the patient
[2022-08-19 14:44] VITALS: BP 115/70; PULSE 92; RESP 24; TEMP 37.3; O2SAT 95
[2022-08-19] MEDS: Acetaminophen 325 MG TAB 650 MG PO (18:40)
[2022-08-19 23:48] VITALS: BP 105/67; PULSE 77; RESP 14; TEMP 36.5; O2SAT 94
[2022-08-20 07:14] LABS: Abs Immature Grans 0.13 10^3/uL (0.0-0.06); Absolute Basophil Count 0.06 10^3/uL (0.0-0.2); Absolute Eosinophil Count 0.61 10^3/uL (0.0-0.7); Absolute Monocyte Count 0.66 10^3/uL (0.1-0.8); Absolute Neutrophil Count 7.75 10^3/uL (1.2-6.7); Basophils % 0.6; Eosinophils % 5.8; HCT 29.9 % (36.0-46.0); HGB 9.5 g/dL (11.2-15.7); Immature Grans % 1.2; Lymphocytes % 12.4; MCH 26.8 pg (27.0-33.0); MCHC 31.8 % (32.0-36.0); MCV 85 fL (80-95); MPV 11.4 fL (8.0-11.0); Monocytes % 6.3; Neutrophils % 73.7; Platelet Count 379 10^3/uL (130-400); RBC 3.54 10^6/uL (3.93-5.22); RDW 15.6 % (11.7-14.6); RDW-SD 48.7 fL; WBC 10.51 10^3/uL (4.4-10.8)
[2022-08-20 07:24] VITALS: BP 125/71; PULSE 85; RESP 16; TEMP 37.1; O2SAT 92
[2022-08-20] MEDS: Heparin 5,000 UNITS/ML VIAL 5000 UNITS SC ×2 (10:34→21:13)
--- NOTE | 2022-08-20 10:47 | IN_ITS ---
Date of service: 08/20/22 Time of Service: 10:15 PT Notes Visit Reasons: Large Bowel Obstruction Physical Therapy Inpatient Initial Evaluation Date: 08/20/2022 Referring Doctor:? Kristal Coello,? PT Orders: PT CONSULT: Extended Stay Weakness Precautions: Fall. Standard. Activity as tolerated. Patient Profile/Admitting Diagnosis: Danielle is a 62-year-old female with large bowel obstruction and is status post ex-lap, lysis of adhesions, sigmoid colon resection, reciting of new colostomy, closure of inguinal hernia on POD 5. PMHX: All Active Problems? Colostomy in place (Chronic) Emphysema lung (Chronic) minimalLeft inguinal hernia (Chronic) Hyperlipidemia (Chronic) Bacterial intestinal infection, unspecified (Acute) Other specified diseases of anus and rectum (Acute) Diaphragmatic hernia without obstruction or gangrene (Acute) History of tobacco use (Acute) 40 pack yr history Thyroid nodule greater than or equal to 1.5 cm in diameter incidentally noted on imaging study (Acute) Medical History? Coronary artery calcification seen on CAT scan minimal Hiatal hernia Hx of endometriosis seen during oophorectomy. Surgical History? Branchial cleft cyst S/P left oophorectomy Status post exploratory laparotomy And diverting loop colostomy 06/26 Social History/Home Situation: Lives alone in a private home with 16 steps to enter with rails on both sides, there are 6 more steps to her bedroom also with rails on both sides.? Independent with all aspects of ADLs prior to surgery.? 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 Equipment Owned/DME: None Subjective: Denies pain, chest pain, headache, and lightheadedness throughout session.? Agreeable to consult. Objective: General Observation: Seated on chair.?Colostomy bag in place.? Mental Status: Alert and oriented as to person, place, time, and purpose. Able to pay attention, focus, and respond appropriately. Pain: 0/10 in surgical incision Vital Signs: WNL as closely monitored by nursing staff ROM: Right Upper Extremity: ? Shoulder Flexion WFL. Shoulder abduction WFL. Elbow flexion WFL. Wrist flexion WFL. Functional opening and closing of hand WFL. Left Upper Extremity:? Shoulder Flexion WFL. Shoulder abduction WFL. Elbow flexion WFL. Wrist flexion WFL. Functional opening and closing of hand WFL. Right Lower Extremity: Hip flexion WFL. Hip abduction WFL. Knee flexion WFL. Ankle dorsiflexion WFL. Ankle plantarflexion WFL. Left Lower Extremity: Hip flexion WFL. Hip abduction WFL. Knee flexion WFL. Ankle dorsiflexion WFL. Ankle plantarflexion WFL. Strength: Right Upper Extremity: Shoulder flexors 4/5. Shoulder abductors 4/5. Elbow flexors 5/5. Elbow extensors 5/5. Molding Machine Tender strong. Left Upper Extremity: Shoulder flexors 4/5. Shoulder abductors 545. Elbow flexors 5/5. Elbow extensors 5/5. Molding Machine Tender strong. Right Lower Extremity: Hip flexors 4-/5. Hip abductors 4-/5. Knee flexors 5/5. Knee extensors 4-/5. Ankle dorsiflexors 5/5. Ankle plantarflexors 5/5. Left Lower Extremity: Hip flexors 4-/5. Hip abductors 4-/5. Knee flexors 5/5. Knee extensors 4-/5. Ankle dorsiflexors 5/5. Ankle plantarflexors 5/5. Bed Mobility/Transfers: Sit to stand independent Stand to sit independent Bed to reclining independent Gait: Instructed patient with level surface ambulation of 250 feet with modified ind ependent using SPC. Arcelia decreased.? Denies pain in abdominal incision. Balance: Static Sitting: Normal Dynamic Sitting: Normal Static Standing: Good Dynamic Standing: Fair Special Tests: Mobility Limitations Standardized Measure [facility] 6 clicks Basic Mobility Inpatient Short Form: Raw Score: 23 ? CMS Score: 11% deficit? ? ? Informed Consent/Education:? Patient was instructed in purpose of PT consult and plan of care. Agreeable to proceed with established PT POC to achieve personal goals. Assessment: Patient presents with clinical signs and symptoms consistent with current/admitting diagnoses that have resulted to mobility limitations, gait instability, generalized weakness, and overall ADL decline as demonstrated by the following impairment level findings: 1.? Decreased strength to? abdominal and B hip flexors due to postoperative status 2.? Impaired standing balance 3.? Impaired activity tolerance Impairments are contributing to the following functional limitations: 1.? Decline in bed mobility skills 2.? Decline in transfer skills 3.? Difficulty with ambulation without assistive device 4.? Increased completion time for mobility ADL performance Patient is assessed as a 43013 low complexity based on the following: History: 62-year-old female with past medical history as indicated above Examination: Demonstrable impairment in strength, balance, and mobility level with underlying impairments and functional limitations as exhibited above as well as deficit score of 11% utilizing the [facility] Mobility Inpatient Short Form Presentation: Stable Decision Makin low complexity Goals: Goals X1 week 1. Patient will demonstrate 100% mastery of HEP after 1-2 sessions. 2. Patient will be independent with level surface ambulation using no assistive device without report of pain in abdominal incision. Plan of Care/Treatment Plan: 1-2x/day, 3 days. Plan of care has been reviewed with the NETTING INSPECTOR providing the service under Physical Therapy direction. Initiate Physical Therapy intervention for pain management as needed, strengthening, bed mobility, transfers, gait, stairs, balance training, and use of assistive device. DISCHARGE RECOMMENDATIONS: [] ? Home with no services [] [X] ? Home with services. Home when medically cleared by surgeon. Recommend home health PT services in order to progress mobility level to independent status without an assistive device. [] ? Home with outpatient PT [] [] ? SNF for continued rehabilitation [] [] ? [facility] Care [] [] ? SNF versus LTC based on ability to participate and progress [] TREATMENT CODE/TIME: 03593 x 18 minutes beginning at 10:15 AM. Thank you for the opportunity to participate in the care of this patient. Anne Roberts PT, DPT, CLT [facility] [place], [place]
--- NOTE | 2022-08-20 11:59 | PGE_ITS ---
Date of Service Date of service: 08/20/22 Time of Service: 07:01 Assessment and Plan Assessment and plan (1) Colostomy in place: Status: Chronic Assessment and plan: White blood count normalized today. She denies having any abdominal pain. She started producing stool through her colostomy. Tolerating the progression in her diet. Encouraged activity out of bed and ambulation. PT consult ordered. Kostas dressing is in place. Patient is eager to return home. She will be able to discharge home within the next few days. Encouraged her to work with physical therapy to improve her strength and activity tolerance for she lives at home independently. I saw and examined Danielle, and I agree with Ness's notes. She seems to be doing very well today. She is tolerating a diet without any problems. Her stoma is working just fine. The previous colostomy site is clean, with healthy appearing granulation tissue. I do not see any evidence of infection. After cleansing the wound, and prepping the skin, I established a local field block and closed the wound with some interrupted Vicryl stitches deep, and some interrupted nylon sutures at the skin level. It was loosely approximated to allow appropriate drainage. Bandages were applied. See how she is feeling in the morning, and if the wound looks okay, we will plan to discharge home Subjective Subjective Interval history since last seen: Arrived with Danielle eating her breakfast. She denies having any abdominal pain, nausea or vomiting. She states that she is tolerating a soft diet. She states that she has been able to empty her colostomy. She said it has been brown liquid stool. She is eager to return home. She states she has been ambulating around the hallways. She states that yesterday she ambulated 3 times throughout the day and each attempt she ambulated 3 laps around [facility]. She states that she has been using the walker to ensure stability Exam Const General: cooperative, healthy appearing and comfortable Orientation: alert and oriented x3 Resp Effort & Inspection: normal respiratory effort, no audible wheezes and no cough GI Inspection: normal to inspection Palpation: soft, no guarding and nontender Other: Kostas dressing in place, appears to be functioning properly. Colostomy with light brown liquid stool. Objective Last Vital Signs Temp 37.1 C 08/20/22 07:24 Pulse 85 08/20/22 07:24 Resp 16 08/20/22 07:24 BP 125/71 08/20/22 07:24 Pulse Ox 92 08/20/22 07:24 Laboratory Results - last 24 hr 08/20/22 06:38 WBC 10.51 RBC 3.54 L Hgb 9.5 L Hct 29.9 L MCV 85 MCH 26.8 L MCHC 31.8 L RDW 15.6 H Plt Count 379 MPV 11.4 H Immature Gran % 1.2 Neutrophils % 73.7 Lymphocytes % 12.4 Monocytes % 6.3 Eosinophils % 5.8 Basophils % 0.6 Nucleated RBC % 0.0 Absolute Neutrophils 7.75 H Absolute Lymphocytes 1.30 Absolute Monocytes 0.66 Absolute Eosinophils 0.61 Absolute Basophils 0.06 Time Spent with Patient Time Spent with Patient: 35-49 minutes Time was spent: preparing to see the patient(eg.review tests) and counseling the patient
--- NOTE | 2022-08-20 12:24 | PDOC.CMPRO ---
- If Service Date Differs Date of service: 08/20/22 Time of Service: 12:24 Care Management Progress Note S/O: Danielle was sitting up in her chair when CM met with her. She stated that she is doing well, and per MD may be ready to return home in the next few days. She is working with PT, and her diet is being advanced as tolerated. CM will continue to follow. A: 62 year old female admitted to [facility] on 08/15/22 for Large Bowel Obstruction P: Anticipate, Danielle will return home with new [facility] RN/PT/OT/PERMANENT MOLD SUPERVISOR services (if indicated) once she is medically cleared. Her sister will drive her home via private vehicle but she may require a lift assist because she has 20 steps to go up to get into her apartment. She will follow up with her PCP and discharge plan of care. CM will continue to follow.
[2022-08-20] MEDS: Acetaminophen 325 MG TAB 650 MG PO (13:27)
--- NOTE | 2022-08-20 14:44 | CHAPLAIN ---
I had a brief visit with Danielle, who was visiting with a friend. I explained my role and offered support.
[2022-08-20 15:09] VITALS: BP 110/56; PULSE 87; RESP 16; TEMP 37.3; O2SAT 95
[2022-08-20 23:49] VITALS: BP 132/75; PULSE 83; RESP 18; TEMP 37.7; O2SAT 94
[2022-08-21 06:34] VITALS: BP 122/72; PULSE 79; RESP 17; TEMP 37.3; O2SAT 96
--- NOTE | 2022-08-21 07:15 | W.PM.DS.N ---
Date of service: 08/21/22 Time of Service: 07:18 DS: Diagnosis Discharge Diagnosis (1) Colostomy in place: Status: Chronic Asessment and Plan: Follow-up in the office on August 28 at [address] Parmar Discharge Plan Disposition Patient Disposition: Home W/Home Health Services Condition: Improving Discharge Details Reason For Visit: Large Bowel Obstruction Admit Date/Time: 08/15/22 07:19 Admit Provider: Shahram Agudelo Attending Provider: Shahram Agudelo Primary Care Provider: Angely Orr Hospital Course Hospital Course: Danielle is a 62-year-old woman with a large bowel obstruction that required a previous diverting loop colostomy. She went back to the operating room for exploration and lysis of adhesions. Dense adhesions were found in the pelvis that precluded hinduism of GI continuity. Therefore, her old sigmoid loop colostomy was taken down, sigmoid colon was resected, and a permanent descending end colostomy was created. Left inguinal hernia was closed. Postoperative course was uneventful. She was seen in consultation by physical therapy, tolerated regular diet with hinduism of normal biochemistry, and she was suitable for discharge on the with home health services Home Meds and New Rx's Prescriptions: New tramadol 50 mg tablet 50 mg PO Q8H PRN (Reason: pain) Qty: 15 0RF Rx Instructions: Take 1 tablet by mouth up to every 8 hours if needed for severe pain Continued Ensure Clear bottle See Rx Instructions .ROUTE .COMPLEX Qty: 3 0RF Rx Instructions: Per bowel surgery instructions; 3- 16oz bottles nystatin 100,000 unit/gram powder 1 applic topical DAILY Qty: 30 6RF Rx Instructions: apply to affected area as needed. Discharge Instructions Additional Instructions: 1. Resume all of your medications. 2. Okay to use heating pads and ice packs over your surgical areas to help control pain 3. Okay to use tylenol and ibuprofen over the counter as needed. 4. Leave bandage in place for 24 hours, then remove. 5. Shower with warm soapy water. Pat dry. Cleanse the old colostomy site at least twice a day with warm soapy water. Take great care when changing the colostomy to avoid contamination of this area. Use a bandage if necessary to protect the stitches 6. No soaking or tub baths until I see you in the office. 7. No heavy lifting until I see you in the office. 8. Call the office (or go directly to the emergency room after hours) if you notice any of the following: Develop chills (warm to touch), or if you have a thermometer and your temperature is above 101 Difficulty breathing or difficultly swallowing Persistent vomiting Any bleeding ? exceeding one tablespoon 6. Call your physician if the site where your intravenous was started becomes red, swollen, painful, and warm to touch. Referrals: Shahram Agudelo MD [ [facility] STAFF PHYSICIAN] - (Follow-up on 427 at [address] Parmar.) Activity:: Activity as Tolerated Equipment/Supplies:: Colostomy supplies Diet:: As Tolerated Discharge Orders Discharge Orders: Discharge Order (Routine); Ordered 08/21/22 Ordered By: Shahram Agudelo DS: Summary Time Spent with Patient providing and/or coordinating discharge services: Greater than 30 minutes Status at Discharge Functional status at discharge: uses cane/walker Overall status at discharge: patient is progressing back to baseline Mental Status: mental status grossly normal Speech and Movement: speech and movement normal Mood: congruent mood Affect: normal affect Exam Const General: cooperative, healthy appearing and comfortable Orientation: awake and oriented x3 Eyes General: appearance normal, both eyes and all related structures Conjunctivae: conjunctivae normal Sclera: sclerae normal Resp Effort & Inspection: normal respiratory effort and able to speak in complete sentences Cardio Jugular venous pressure: no JVD Rate: regular rate GI Inspection: non-distended Palpation: soft, no guarding and nontender Auscultation: normal bowel sounds Other: Midline incision is healing nicely with no erythema. Recent closure of old ostomy site looks clean, with minimal erythema around the new stitches. End colostomy is pink, perfused, working fine. Skin General skin exam: normal turgor Neuro General: patient alert, patient awake and patient oriented x3 Cognition: normal cognition Extrem Right lower extremity: no edema Left lower extremity: no edema Psych Mental Status: mental status grossly normal Speech and Movement: speech and movement normal Mood: congruent mood Affect: normal affect DS: Data Vitals/I&O Vitals and I&O: Vital Signs Temperature 99.1 F 08/21/22 06:34 Temperature Source Tympanic 08/21/22 06:34 Pulse 79 08/21/22 06:34 Pulse Rhythm Regular 08/20/22 23:23 Respiratory Rate 17 08/21/22 06:34 Respiratory Effort Normal, Non-Labored 08/20/22 23:23 Respiratory Depth Normal 08/20/22 23:23 Respiratory Pattern Normal 08/20/22 23:23 Blood Pressure 122/72 08/21/22 06:34 Pulse Oximetry 96 08/21/22 06:34 Respiratory End-tidal CO2 27 08/15/22 14:30 Oxygen Delivery Method Room Air 08/21/22 06:34 Oxygen Flow Rate 0 08/21/22 06:34 Pain Level 0 08/20/22 14:24 Comment Informed RN of abnormal vital signs 08/15/22 23:16 Intake & Output 08/20/22 08/20/22 08/21/22 11:59 23:59 11:59 Intake Total 1320 / 1320 Output Total 1200 / 2250 1050 / 2250 375 / 375 Balance -1200 / -930 270 / -930 -375 / -375 Intake: Oral 1320 / 1320 Output: Urine 1000 / 1500 500 / 1500 375 / 375 Stool 200 / 750 550 / 750 Other: Urine Color Yellow Yellow Yellow Urine Appearance Clear Clear Clear Urine Odor Normal Voiding Methods Toilet Toilet Data Completed and Pending Labs on day of discharge: Labs from last 24 hours 08/20/22 06:38 WBC 10.51 RBC 3.54 L Hgb 9.5 L Hct 29.9 L MCV 85 MCH 26.8 L MCHC 31.8 L RDW 15.6 H Plt Count 379 MPV 11.4 H Immature Gran % 1.2 Neutrophils % 73.7 Lymphocytes % 12.4 Monocytes % 6.3 Eosinophils % 5.8 Basophils % 0.6 Nucleated RBC % 0.0 Absolute Neutrophils 7.75 H Absolute Lymphocytes 1.30 Absolute Monocytes 0.66 Absolute Eosinophils 0.61 Absolute Basophils 0.06 PFSH All Active Problems Colostomy in place (Chronic) Emphysema lung (Chronic) minimal Left inguinal hernia (Chronic) Hyperlipidemia (Chronic) Bacterial intestinal infection, unspecified (Acute) Other specified diseases of anus and rectum (Acute) Diaphragmatic hernia without obstruction or gangrene (Acute) History of tobacco use (Acute) 40 pack yr history Thyroid nodule greater than or equal to 1.5 cm in diameter incidentally noted on imaging study (Acute) Medical History Coronary artery calcification seen on CAT scan minimal Hiatal hernia Hx of endometriosis seen during oophorectomy. Surgical History Branchial cleft cyst S/P left oophorectomy Status post exploratory laparotomy And diverting loop colostomy 06/26 Family History Mother Hypertension Father , 38 Heart disease Colitis Sister No problems noted. Sister No problems noted. Sister No problems noted. Maternal Grandfather , 92 No problems noted. Paternal Grandfather , 54 No problems noted. Maternal Grandmother , 89 No problems noted. Paternal Grandmother , 85 No problems noted. 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 Pets and animals: Yes Pets and animals: cat(s) Sexually active: No Do you think of yourself as: straight/heterosexual Current gender identity: female What is your relationship status?: never How often do you talk on the phone with friends or family?: three or more times per week How often do you get together with friends or relatives?: once per week How often do you attend restorationist or denominational services?: 1-3 times per year Do you belong to any clubs or organized social groups?: no Panel score (0-1 are the most socially isolated patients): 1 What type of physical activity do you participate in: none Frequency: does not exercise Yamilex/Episcopal: Baptism Special yamilex needs: No Seatbelt use: always Helmet use: Yes Helmet use: always Drive intox or ride w/intox driver lifter of sanitation truck: No Do you feel safe at home: Yes Do you feel safe in your relationship?: Yes Additional Social history: Enjoys reading, walking. Time Spent with Patient Time Spent with Patient: <45 minutes Time was spent: preparing to see the patient(eg.review tests), ordering medications,tests, procedures, counseling the patient and care coordination
--- NOTE | 2022-08-21 07:17 | PDOC.HHF2F ---
Home Health Referral Home Health Orders Clinical synopsis of why skilled professionals are needed: Danielle is a 62-year-old woman who underwent laparotomy takedown of old colostomy, and reciting of new end colostomy. She has a new midline laparotomy wound, as well as recent closure of her old colostomy site that needs wound care Medical diagnosis necessitation home health referral: Laparotomy with wounds Registered Nurse: Check all that apply Instruct on new or changed medication(s)/assess compliance: Ordered Instruct on ostomy care: Ordered Assess for exacerbation of medical condition, instruct patient/caregivers on signs and symptoms to report for early detection: Ordered Physical Therapist: Check all that apply Increase strength & endurance for safe mobility at home: Ordered Home safety evaluation and teaching/gait training including stair management (if applicable): Ordered Induction Coordination Power Engineer: Assist with community resources: Ordered Assist with chcf care planning: Ordered Home Bound Status Requires the aid of supportive device (check all that apply): Walker Patient has a condition such that leaving home is medically contraindicated (Describe): s/p laparotomy. no driving until 06/18 Encounter Date and Reason: I certify that a FTF encounter for this patient was performed on August 21, 2022 and that such encounter was related to the primary reason the patient requires home health services. The encounter was conducted in the following manner: By me as the certifying physician, HEEL BUILDER, PA or By an inpatient physician, HEEL BUILDER or PA during an inpatient stay who communicated findings to me, Certification And Authentication I certify that I composed the above information based on my clinical judgment relating to this patient's medical condition and, if applicable, clinical findings communicated to me by the NPP or inpatient physician who performed the FTF encounter. Name of Provider that will be monitoring home health services: Shahram Agudelo
--- NOTE | 2022-08-21 07:25 | W.PM.PROGNOT ---
Date of Service Date of service: 08/21/22 Time of Service: 07:25 Assessment and Plan Assessment and plan (1) Colostomy in place: Status: Chronic Assessment and plan: Danielle looks very good this morning, and I do not see any reason to keep her in the hospital any longer. We will work on discharging her home with health services today. Subjective Subjective Interval history since last seen: Danielle is up and already in the chair. She says she feels good, and is eager to be discharged home. Exam GI Other: Abdomen is soft and nondistended. Midline incision is clean, and healing nicely. Ostomy looks fine. Objective Last Vital Signs Temp 99.1 F 08/21/22 06:34 Pulse 79 08/21/22 06:34 Resp 17 08/21/22 06:34 BP 122/72 08/21/22 06:34 Pulse Ox 96 08/21/22 06:34 Laboratory Results - last 24 hr 08/20/22 06:38 WBC 10.51 RBC 3.54 L Hgb 9.5 L Hct 29.9 L MCV 85 MCH 26.8 L MCHC 31.8 L RDW 15.6 H Plt Count 379 MPV 11.4 H Immature Gran % 1.2 Neutrophils % 73.7 Lymphocytes % 12.4 Monocytes % 6.3 Eosinophils % 5.8 Basophils % 0.6 Nucleated RBC % 0.0 Absolute Neutrophils 7.75 H Absolute Lymphocytes 1.30 Absolute Monocytes 0.66 Absolute Eosinophils 0.61 Absolute Basophils 0.06 Time Spent with Patient Time Spent with Patient: <25 minutes Time was spent: preparing to see the patient(eg.review tests) and counseling the patient
--- NOTE | 2022-08-21 12:12 | PDOC.CMDIS ---
- If Service Date Differs Date of service: 08/21/22 Time of Service: 12:13 LACE Index Scoring Tool - Questions: Length of Stay (in days): 4 - 6 Acuity (Admit via E.D.?): No Comorbidities: Chronic Pulmonary Disease E.D. Visits: 2 - Answers: Total Score: 8 Risk of Readmission: Low Risk Care Management Discharge Reason for Hospitalization: Large Bowel Obstruction Discharge Plan: Danielle returned home today with new orders for HH RN. Her sister drove her home via private vehicle. She will follow up with her PCP and discharge plan of care. She is happy to be going home. Patient/Family Education Needs: Review discharge instructions and limitations, discussion of self care needs including ask me three. Services Needed at Discharge: Home Health Care Services (HH RN)
--- NOTE | 2022-08-21 13:15 | INDS_ITS ---
Date of service: 08/21/22 Time of Service: 13:15 PT Notes Visit Reasons: Large Bowel Obstruction Physical Therapy Inpatient Discharge Summary Date: 08/21/2022 Dates of Service: 08/20/2022 only This is a clinical summary of care provided for the duration of dates listed above. No charge was made in the completion of this documentation. Referring Doctor:? Kristal Coello,? PT Orders: PT CONSULT: Extended Stay Weakness Precautions: Fall. Standard. Activity as tolerated. Patient Profile/Admitting Diagnosis: Danielle is a 62-year-old female with large bowel obstruction and is status post ex-lap,? lysis of adhesions, sigmoid colon resection,? reciting of new colostomy,? closure of inguinal hernia on POD 5. PMHX: All Active Problems? Colostomy in place (Chronic) Emphysema lung (Chronic) minimalLeft inguinal hernia (Chronic) Hyperlipidemia (Chronic) Bacterial intestinal infection, unspecified (Acute) Other specified diseases of anus and rectum (Acute) Diaphragmatic hernia without obstruction or gangrene (Acute) History of tobacco use (Acute) 40 pack yr history Thyroid nodule greater than or equal to 1.5 cm in diameter incidentally noted on imaging study (Acute) Medical History? Coronary artery calcification seen on CAT scan minimal Hiatal hernia Hx of endometriosis seen during oophorectomy. Surgical History? Branchial cleft cyst S/P left oophorectomy Status post exploratory laparotomy And diverting loop colostomy 06/26 Social History/Home Situation: Lives alone in a private home with 16 steps to enter with rails on both sides, there are 6 more steps to her bedroom also with rails on both sides.? Independent with all aspects of ADLs prior to surgery.? 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 Equipment Owned/DME: None Subjective: NT. See most recent MOTION PICTURE ACTOR notes. Objective: General Observation: NT. See most recent MOTION PICTURE ACTOR notes. Mental Status: NT. See most recent MOTION PICTURE ACTOR notes. Pain: NT. See most recent MOTION PICTURE ACTOR notes. Vital Signs: NT. See most recent MOTION PICTURE ACTOR notes. ROM: Right Upper Extremity: ? Shoulder Flexion WFL. Shoulder abduction WFL. Elbow flexion WFL. Wrist flexion WFL. Functional opening and closing of hand WFL. Left Upper Extremity:? Shoulder Flexion WFL. Shoulder abduction WFL. Elbow flexion WFL. Wrist flexion WFL. Functional opening and closing of hand WFL. Right Lower Extremity: Hip flexion WFL. Hip abduction WFL. Knee flexion WFL. A nkle dorsiflexion WFL. Ankle plantarflexion WFL. Left Lower Extremity: Hip flexion WFL. Hip abduction WFL. Knee flexion WFL. Ankle dorsiflexion WFL. Ankle plantarflexion WFL. Strength: Right Upper Extremity: Shoulder flexors 4/5. Shoulder abductors 4/5. Elbow flexors 5/5. Elbow extensors 5/5. [employer] strong. Left Upper Extremity: Shoulder flexors 4/5. Shoulder abductors 545. Elbow flexors 5/5. Elbow extensors 5/5. [employer] strong. Right Lower Extremity: Hip flexors 4-/5. Hip abductors 4-/5. Knee flexors 5/5. Knee extensors 4-/5. Ankle dorsiflexors 5/5. Ankle plantarflexors 5/5. Left Lower Extremity: Hip flexors 4-/5. Hip abductors 4-/5. Knee flexors 5/5. Knee extensors 4-/5. Ankle dorsiflexors 5/5. Ankle plantarflexors 5/5. Bed Mobility/Transfers: Sit to stand independent Stand to sit independent Bed to reclining independent Gait: Instructed patient with level surface ambulation of 250 feet with modified independent using SPC. Arcelia decreased.? Denies pain in abdominal incision. Balance: Static Sitting: Normal Dynamic Sitting: Normal Static Standing: Good Dynamic Standing: Fair Assessment: Patient presents with clinical signs and symptoms consistent with current/admitting diagnoses that have resulted to mobility limitations, gait instability, generalized weakness, and overall ADL decline as demonstrated by the following impairment level findings: 1.? Decreased strength to? abdominal and B hip flexors due to postoperative status 2.? Impaired standing balance 3.? Impaired activity tolerance Impairments are contributing to the following functional limitations: 1.? Decline in bed mobility skills 2.? Decline in transfer skills 3.? Difficulty with ambulation without assistive device 4.? Increased completion time for mobility ADL performance Goals: Goals X1 week 1.? Patient will demonstrate 100% mastery of HEP after 1-2 sessions. NOT MET, CONTINUE WITH HH PT 2.? Patient will be independent with level surface ambulation using no assistive device without report of pain in abdominal incision. NOT MET, CONTINUE WITH HHPT All his for can you okayDISCHARGE RECOMMENDATIONS: [] ? Home with no services [] [X] ? Home with services.? Home when medically cleared by surgeon.? Recommend home health PT services in order to progress mobility level to independent status without an assistive device. [] ? Home with outpatient PT [] [] ? SNF for continued rehabilitation [] [] ? [employer] [facility] [] [] ? SNF versus LTC based on ability to participate and progress [] TREATMENT CODE/TIME: MO Thank you for the opportunity to participate in the care of this patient. Anne Roberts PT, DPT, CLT [facility] [place], [place]
== END 2022-08-21 09:53 | disposition home health service (06) | DRG 331 ==
LOC: PDS 14:12 → MS 15:30
PROVIDERS: Surgery; Admitting Provider Surgery; PCP Family Medicine; Visit Provider Surgery
PROC: 0DNP0ZZ Release Rectum, Open Approach (ICD-10-PCS; CPT 49000; principal; 2022-08-15 09:00)
DX: K56.50 Intestinal adhesions [bands], unspecified as to partial versus complete obstruction (principal); K57.30 Diverticulosis of large intestine without perforation or abscess without bleeding; J43.9 Emphysema, unspecified; E78.5 Hyperlipidemia, unspecified; Z93.3 Colostomy status; K44.9 Diaphragmatic hernia without obstruction or gangrene; Z87.891 Personal history of nicotine dependence; E04.1 Nontoxic single thyroid nodule; I25.10 Atherosclerotic heart disease of native coronary artery without angina pectoris
CPT/HCPCS: 44143; 49505; 44345; 36415; 80048; 85027; 87635; 97161; 74177; 81003; 81015; 85025; 86140; 88307; J0131; J0690; J1100; J1644; J2405; J2704; J3475; Q9967

== ENCOUNTER 2022-09-18 01:54 | Outpatient (CLI) | payer OTHER, SELFPAY ==
--- NOTE | 2022-09-18 07:15 | DI.US_ITS ---
Exam(s) US THYROID EXAM: US THYROID CLINICAL HISTORY: right 1.6cm thyroid mass,e04.1. TECHNIQUE: Ultrasound thyroid performed using standard protocol. COMPARISON: No exams were available for comparison FINDINGS: ISTHMUS: 3.2 mm RIGHT LOBE: Size: 4.2 x 1.9 x 1.8 cm Echogenicity: Normal. Vascularity: Normal. Nodules: There is a 1.5 x 1.3 x 1.4 cm solid hypoechoic nodule in the right lobe. There are peripher al calcifications present. This corresponds to a TI rads 4 level nodule. Due to its size, FNA is re commended. There is a 0.5 x 0.5 x 0.5 cm solid hypoechoic nodule in the lower pole of the right lobe with punctate calcifications. This is consistent with a TI rads level 5 nodule. Due to its size, f ollow-up is recommended. LEFT LOBE: Size: 4.2 x 1.3 x 1.7 cm Echogenicity: Normal. Vascularity: Normal. Nodules: There is a 0.8 x 0.6 x 0.7 cm solid hypoechoic nodule in the midpole of the left lobe of the thyroid gland. There is a macrocalcification associated with the nodule. This is consistent with a TI rads level 4 nodule. Due to its size no follow-up or FNA is recommended. OTHER FINDINGS: No other suspicious nodules are seen in the thyroid gland warranting follow-up or FNA . IMPRESSION: 1. TI rads level 4 nodule requiring FNA measuring 1.5 x 1.3 x 1.4 cm in the right thyroid gland. 2. TI rads level 5 nodule requiring follow-up due to its size in the right lobe. DATA REPOSITORY:
--- NOTE | 2022-09-18 08:25 | DI.MAMMO_ITS ---
Exam(s) MAMMO SCREENING EXAM: MAMMO SCREENING CLINICAL HISTORY: screening,z12.39 TECHNIQUE: Bilateral full field digital CC and MLO mammographic images were obtained with 3D tomosyn thesis and utilizing computer aided detection (CAD). COMPARISON: Comparison examination is 06/11/2000. FINDINGS: Masses/Architectural Distortion: None seen. Microcalcifications: No suspicious pleomorphic-type are seen. Skin Thickening/Nipple Retraction: None. IMPRESSION: 1. No significant interval change with no specific features of malignancy noted. 2. Unless there is more urgent need, screening mammography is recommended, as per [place] [employer] guidelines. BI-RADS Category 1 - Negative Breast Density - Category B - Scattered areas of fibroglandular density Breast density category C or D implies that the patient has dense breast tissue. Dense breast tissue is very common and is not abnormal but dense breast tissue can make it harder to find cancer on a ma mmogram. Also, dense breast tissue may increase their breast cancer risk. This information about the result of the mammogram report was provided to the patient to raise their awareness. Use this report when you speak with the patient about their risks for breast cancer, which includes their family hist ory. At that time, you may recommend for more screening tests (Ultrasound or MRI) as they might be us eful based on their risk. A negative radiographic report should not delay biopsy if a dominant or clinically suspicious mass is present. Up to ten percent of cancers are not identified on mammography. A negative report may reinforce clinical impression. Adenosis and dense breasts may obscure an underlying neoplasm. False positive reports average 6 to 10%. Patient will receive a letter notifying them of these results.
== END 2022-09-18 02:14 ==
PROVIDERS: PCP Family Medicine; Visit Provider Family Medicine
DX: Z12.31 Encounter for screening mammogram for malignant neoplasm of breast (principal); E04.1 Nontoxic single thyroid nodule
CPT/HCPCS: 77063; 77067; 76536

== ENCOUNTER → 2022-12-30 01:26 | Outpatient (CLI) | payer OTHER, SELFPAY ==
--- NOTE | 2022-12-30 08:00 | DI.US_ITS ---
Exam(s) US NEEDLE LOCAL OTHER WO RAD EXAM: right thyroid nodule TR-4,E04.1 NONTOXIC SINGLE THYROID NODULE COMPARISON: US US THYROID from 09/18/2022 TECHNIQUE: Ultrasound performed using standard protocol. FINDINGS: Sonography was provided for Dr. Cao during the performance of a ultrasound-guided thyroid nodule biopsy. Please refer to the procedure report for complete details. DATA REPOSITORY:
--- NOTE | 2022-12-30 11:30 | PAPNONF_PTH ---
PATIENT: Danielle Moreland LOC: [facility] U#:[id number] AGE/SX: 65/F ROOM: RE12/30/[address]: aKrime Maki : 1960 BED: DIS: SPEC #: [id number] RECD: 12/30/22 13:24 STATUS: TEODORO REDebbie #: [id number] IRENA: 12/30/22 11:[address]: Karime Maki DEPT: [facility] Cytology RECD BY: Leila Lr ENTERED: 12/30/22 13:24 SP TYPE: VENECIA RODNEY DR: Angely Orr Tissues: 1 - BODY FLUID CYTO-FINE NEEDLE ASPIRATE-[facility] Procedures: BODY FLUID CYTO-FINE NEEDLE ASPIRATE-[facility] Comments: [id number] (PATH FNA CONSULT) (REFRIGERATED)
--- NOTE | 2022-12-30 11:50 | W.PROCNOTE ---
Date of service: 12/30/22 Time of Service: 11:51 Procedure Note Date of procedure: 12/30/22 Procedure: Ultrasound-guided FNA, right thyroid nodule, pathology present Procedure Diagnosis: TR4 right-sided 1.5 cm thyroid nodule Procedure Indications: Patient with the above problem. Options were explained to patient regarding further management. She elected undergo the above procedure. Risks and benefits as well as the procedure were discussed at length. Consent was obtained. The below was then performed. She noted no change in her health since I saw her last. Procedure Description: The patient was positioned in supine position with her neck extended. Ultrasound was used to localize the right-sided thyroid nodules, and the size was still confirmed at 1.5 cm. 1% lidocaine with 1/100,000 epinephrine was injected into the skin and subcutaneous tissues overlying the nodule after the patient was prepped and draped in appropriate fashion. A 25-gauge needle was then passed repeatedly into the nodule, and adequate cellularity was verified by pathology. After ensuring adequate cellularity, 2 additional passes were made for potential Afirma testing. After ensuring adequate hemostasis, a sterile dressing was applied and the patient was allowed to sit and then ambulate. Her vital signs remained stable. . I was present throughout the entire procedure. She is to call with any signs of infection. She may use Tylenol or ibuprofen for any pain control. She will call if she does not hear from me with regard to the results within 1 week.
== END ==
PROVIDERS: PCP Family Medicine; Visit Provider Registered Nurse Maternal Newborn
DX: E04.1 Nontoxic single thyroid nodule (principal)
CPT/HCPCS: 10005; 76942; 88104

== ENCOUNTER 2023-08-07 14:51 | Outpatient (REF) | payer OTHER, SELFPAY ==
--- NOTE | 2023-08-07 09:50 | PAPFT_PTH ---
PATIENT: Danielle Moreland LOC: [facility] U#:[id number] AGE/SX: 63/F ROOM: RE08/07/[address]: Angely Orr : 1960 BED: DIS: 08/07/2023 SPEC #: [id number] RECD: 08/07/23 18:54 STATUS: TEODORO REDebbie #: [id number] IRENA: 08/07/23 09:[address]: Angely Orr DEPT: [facility] Cytology RECD BY: Leila Lr Tissues: 1 - CX/ENDOCX FOR PAP SMEARS Procedures: PAP THIN PREP/[facility] Screening HPV DNA PROBE Comments: [id number]
== END 2023-08-07 14:52 | disposition home or self-care (01) ==
LOC: LBN 14:51
PROVIDERS: PCP Family Medicine; Referring Provider Family Medicine; Visit Provider Family Medicine
DX: Z12.4 Encounter for screening for malignant neoplasm of cervix (principal); Z11.51 Encounter for screening for human papillomavirus (HPV)
CPT/HCPCS: 88142; 87624

== ENCOUNTER → 2023-09-21 03:55 | Outpatient (CLI) | payer OTHER, SELFPAY ==
--- NOTE | 2023-09-21 06:15 | DI.MAMMO_ITS ---
Exam(s) MAMMO SCREENING EXAM: MAMMO SCREENING CLINICAL HISTORY: screening,z12.39. TECHNIQUE: Bilateral full field digital CC and MLO mammographic images were obtained with 3D tomosyn thesis and utilizing computer aided detection (CAD). COMPARISON: Prior mammograms were reviewed. FINDINGS: There has been no significant change in the appearance and distribution of the fibroglandular tissue. There are no CAD designations. Benign-appearing nodules both breasts remain unchanged There are no new spiculated masses nor new malignant appearing microcalcification groups. There is no significant architectural distortion nor skin thickening-retraction. IMPRESSION: No radiographic evidence of malignancy. BI-RADS Category 2 - Benign Findings Breast Density - Category B - Scattered areas of fibroglandular density Breast density Category C or D implies that the patient has dense breast tissue. Dense breast tissue can make it harder to find cancer on a mammogram. Dense breast tissue is also associated with an incr eased risk of breast cancer. This information about the result of the mammogram report was provided to the patient to raise their awareness. Use this report when you speak with the patient about their risks for breast cancer, which includes their family history. At that time, you may recommend additional screening tests (Ultrasoun d or MRI) as these tests may add significant information. A negative radiographic report should not delay biopsy if a dominant or clinically suspicious mass is present. Up to ten percent of cancers are not identified on mammography. A negative report may reinforce clinical impression. Adenosis and dense breasts may obscure an underlying neoplasm. False positive reports average 6 to 10%. Patient will receive a letter notifying them of these results.
--- NOTE | 2023-09-21 06:15 | DI.CTLCSR_ITS ---
Exam(s) CT CHEST LUNG CANCER SCREEN EXAM: CT CHEST LUNG CANCER SCREEN CLINICAL HISTORY: Screening for lung cancer,former smoker, z87.891 TECHNIQUE: Imaging Protocol: Axial computed tomography images with coronal and sagittal reformatted images were created and reviewed. Low dose screening protocol. COMPARISON: CT CT CHEST/ABD/PEL W from 07/10/2022 FINDINGS: Tracheobronchial tree: No bronchiectasis or mucus plugging. Mediastinum and Arianna: No dominant adenopathy or fluid collection. Pulmonary parenchyma: No consolidation or dominant measurable mass. [id number] emphysematous ch anges. Lung Nodules: None. Pleura: No effusion. No pneumothorax. Heart: The heart is not dilated. Mild coronary artery calcifications are seen. Aorta: Thoracic aorta non-dilated. Mild calcification in the chest. Abdominal aorta more heavily c alcified. Upper abdomen: Moderate-sized hiatal hernia. Bones: Degenerative disc changes with prominent endplate osteophytes. Soft Tissues: Peripherally calcified right thyroid nodule again noted. IMPRESSION: No suspicious pulmonary nodules. Lung RADS Cat 1 - Negative: No nodules and definitely benign nodules Lung-RADS 1.0 CATEGORIES: Category 0 - Prior chest CT exam(s) being located for comparison. Category 1 - Annual screening in 12 months. No nodules or definitely benign nodules. Category 2 - Annual screening in 12 months. Benign appearance. Nodules with low likelihood of becomin g active cancer. Category 3 - 6-month follow-up. Probably benign. Short-term follow-up suggested. Nodules with low lik elihood of becoming active cancer. Category 4A - 3-month follow-up and CT/PET if >8 mm in size. Suspicious finding. Findings which requi re additional testing. Category 4B - Findings which require additional testing and tissue sampling. Category 4X - Category 3 or 4 nodules with additional features or imaging findings that increases the suspicion of malignancy. Modifier S- Potentially clinically significant findings (non lung cancer) RADIATION DOSE DELIVERED: 73.33mGy.cm Total DLP DATA REPOSITORY: All CT scans at this facility are submitted to the National Radiology Data Registry (NRDR) Dose Index Registry (DIR) with the [employer] ([employer]). RADIATION OPTIMIZATION: All CT scans at this facility use at least one of these dose optimization te chniques: automated exposure control; mA and/or kV adjustment per patient size (includes targeted exa ms where dose is matched to clinical indication); or iterative reconstruction.
== END ==
PROVIDERS: PCP Family Medicine; Visit Provider Family Medicine
DX: Z87.891 Personal history of nicotine dependence (principal); Z12.31 Encounter for screening mammogram for malignant neoplasm of breast
CPT/HCPCS: 71271; 77063; 77067

== ENCOUNTER 2023-10-20 10:44 | Day surgery (SDC) | payer OTHER, SELFPAY ==
--- NOTE | 2023-10-20 08:48 | W.ANESPRE ---
General Info Date of Service Date Performed: 10/20/23 Height: 4 ft 11.5 in Weight: 91.172 kg Body Mass Index (BMI): 39.9 Surgical Procedure: Operation Date: 10/20/23 12:05 Proposed Procedure Side Surgeon p Rebeka Gale MD Meds Allergies and Home Medications Allergies Allergy/AdvReac Type Severity Reaction Status Date / Time No Known Allergies Allergy Verified 10/19/23 13:51 Home Medication Medication Instructions Recorded nystatin 100,000 unit/gram topical 1 applic topical DAILY #30 grams 08/11/23 powder bisacodyl 5 mg tablet,delayed 5 mg PO ONCE #4 tabs 10/15/23 release (Dulcolax (bisacodyl)) polyethylene glycol 3350 17 17 g PO ONCE #238 grams 10/15/23 gram/dose oral powder Current Visit Medications: Current Medications Generic Name Dose Route Start Last Admin Trade Name Freq PRN Reason Stop Dose Admin Ringer's Solution 1,000 mls @ 80 mls/hr 10/20/23 06:00 IV 10/20/23 23:59 INFUSION AMRIK IV Miscellaneous Supplies 1 each 10/20/23 06:00 Iv Access IV 10/20/23 23:59 DIRECTED AMRIK Sodium Chloride 0 ml 10/20/23 06:00 Normal Saline Flush 10 Ml Syr IV 10/20/23 23:59 PRN PRN Sodium Chloride 0 ml 10/20/23 06:00 Normal Saline 10 Ml Vial IJ 10/20/23 23:59 DIRECTED PRN Sterile Water 0 ml 10/20/23 06:00 Water,Injection,Sterile 10 Ml Vial IJ 10/20/23 23:59 DIRECTED PRN PFSH Active Problems Active Problems: Problem Status Onset Code Class 2 obesity due to excess calories with body mass index (BMI) of 38.0 to 38.9 in adult E66.09, Z68.[address] Z93.3 Emphysema lung J43.9 Left inguinal hernia K40.90 Hyperlipidemia E78.5 Other specified diseases of anus and rectum K62.89 Diaphragmatic hernia without obstruction or gangrene K44.9 History of tobacco use Z87.891 Thyroid nodule greater than or equal to 1.5 cm in diameter incidentally noted on imaging study E04.1 Medical History Medical History Coronary artery calcification seen on CAT scan minimal Hiatal hernia Hx of endometriosis seen during oophorectomy. Medical History Comments:: colostomy in situ Surgical History Surgical History Branchial cleft cyst S/P left oophorectomy Status post exploratory laparotomy And diverting loop colostomy 06/26 Tobacco Smoking/Tobacco Use Status: Former Tobacco Use Second hand exposure: Yes Alcohol Alcohol Intake: current Alcohol intake frequency: holidays/special occasions only Alcohol type: beer Substance Use Substance use: Never Substance use type: does not use Prental History History 0 Para Hx # Term Pregnancies Multiple births Hx # Pregnancies Ectopic pregnancies AB induced Hx Number of Living Children AB spontaneous Vital Signs and Lab Results Vital Signs Most Recent Vital Signs in EMR: Temp Pulse Resp BP Pulse Ox 36.4 C L 62 16 141/62 H 97 10/20/23 11:45 10/20/23 11:45 10/20/23 11:45 10/20/23 11:45 10/20/23 11:45 Lab Results Blood Type / Crossmatch: No Data to Display Complete Blood Count: No Data to Display Complete Metabolic Panel: No Data to Display Liver Function Panel: No Data to Display Coagulation Panel: No Data to Display Cardiac Panel: No Data to Display Arterial Blood Gas: No Data to Display Venous Blood Gas: No Data to Display Pancreas Panel: No Data to Display Thyroid Panel: No Data to Display Infectious Disease: No Data to Display Blood Cultures: No Data to Display Toxicology Panel: No Data to Display Imaging and Studies Imaging and Studies Study information below may be from another EMR and interpreted by another provider. Please see original notes in EMR for more complete details. EKG Summary: 06/26: Conclusion Sinus tachycardia...rate> 99 Anesthesia Assessment and Plan Anesthesia History Personal History: No History of Anesthesia Complications Family History: No Family History of Anesthesia Complications Exercise Tolerance Exercise Tolerance: Metabolic Equivalents>4 Cardiac & Pulmonary Exam Cardiac Exam: Normal S1/S2 Heart Sounds Pulmonary Exam: Clear Bilateral Breath Sounds Implantable Cardiac Device Does patient have a Pacemaker or an ICD?: No Airway Exam Known Difficult Airway: No Mallampati Class: 2 Mouth Opening: Normal (> 3cm) Thyromental Distance: Greater than 3 cm Neck Range of Motion: Full ROM Neck Circumference: Normal Teeth Condition: Generalized Poor Dentition Airway Comments: Missing uppers only has teeth in lower front. Not loose per patient ASA Classification ASA Score: ASA 2 Emergency Case?: No NPO Status NPO Status: NPO Clears >2 hours, Solids >8 hours Anesthesia Plan Resuscitation Status: Full Code Anesthesia Technique: General Anesthesia Airway Planned: Natural Airway Monitors Used: Standard Monitors Preoperative Comments:: 62 yo female for colo Sig PMHx: CAD seen on CT, hiatal hernia, former smoker, occ EtOH. Previous Anes: - ex lap, glide 3 grade 1, easy mask, no issues. - colo, prop, natural airway, no issues. - glide 3 grade 2a
[2023-10-20 11:45] VITALS: BP 141/62; PULSE 62; RESP 16; TEMP 36.4; O2SAT 97
[2023-10-20 11:59] VITALS: BMI 39.9
[2023-10-20] MEDS: Lactated Ringers 1,000 ML 80 ML IV (12:11)
[2023-10-20 12:46] VITALS: BP 106/53; PULSE 65; RESP 16; TEMP 36.2; O2SAT 98
--- NOTE | 2023-10-20 13:03 | W.ANESPOSTOP ---
Postoperative Evaluation Date, Time and Location Date Performed: 10/20/23 Time Performed: 13:03 Patient Location: Day Surgery Unit Vital Signs Most Recent Imported Vital Signs: Most Recent Vital Signs Temp Pulse Resp BP Pulse Ox 36.2 C L 65 16 106/53 L 98 10/20/23 12:46 10/20/23 12:46 10/20/23 12:46 10/20/23 12:46 10/20/23 12:46 Pain Score Most Recent Pain Score: Most Recent Pain Score Pain Level 0 10/20/23 12:46 Assessment Mental Status: Awake (Alert & Oriented to Patient Baseline) Airway and Respiratory Function: Patent airway with normal (patient baseline) respiratory exam Cardiovascular Function: Hemodynamically Stable Hydration Status: Adequately Hydrated Nausea & Vomiting: No Nausea or Vomiting Pain: Pt. Denies Any Pain Peripheral Nerve Block: Patient did not receive a nerve block
[2023-10-20 13:15] VITALS: BP 123/69; PULSE 64; RESP 16; TEMP 36; O2SAT 97
--- NOTE | 2023-10-20 13:29 | W.COLOREPORT ---
Date of service: 10/20/23 Time of Service: 13:29 Colonoscopy Report Procedure Description: PROCEDURES PERFORMED: 1. Colonoscopy PREOPERATIVE DIAGNOSIS: Surveillance/screening colonoscopy POSTOPERATIVE DIAGNOSIS: Mild pandiverticulosis SURGEON: Nicolas Gale MD INDICATION FOR PROCEDURE: the patient is a 63-year-old woman with a end colostomy following a Adam procedure done for diverticular disease causing large bowel obstruction. The proximal colon has not been evaluated for cancer screening per report. FINDINGS: Minimal/mild, scattered diverticular changes throughout the entire colon. No polyps. No inflammation. SURVEILLANCE interval/FOLLOW-UP: 10 years SPECIMENS: None EBL: Minimal COMPLICATIONS: None QUALITY of prep: Excellent Procedure in detail: The patient gave written consent and was in agreement with the indications, the potential risks as well as the benefits of the procedure. They were taken to the endoscopy suite and laid in the left lateral decubitus position. A timeout was performed and anesthesia was administered which was tolerated well. I started the procedure. A well-lubricated flexible colonoscope was then introduced and passed through the stoma without any notable difficulty all the way to the cecum identified by the ileocecal valve and the appendiceal orifice(there was actually some degree of appendiceal inversion/prolapse occurring) the terminal ileum was briefly intubated and looked normal. The scope was then slowly withdrawn with the above-noted findings. The patient tolerated the procedure well and was taken to the PACU in hemodynamically stable condition.
--- NOTE | 2023-10-20 13:30 | W.PM.DSUDISC ---
Date of service: 10/20/23 Time of Service: 13:30 Discharge Plan Disposition Patient Disposition: Home Condition: Good Discharge Details Attending Provider: Tanner Gale Primary Care Provider: Angely Orr Home Meds and New Rx's Prescriptions: No Action bisacodyl [Dulcolax (bisacodyl)] 5 mg tablet,delayed release (DR/EC) 5 mg PO ONCE Qty: 4 0RF Rx Instructions: Take per colonoscopy instructions provided by ordering providers office polyethylene glycol 3350 17 gram/dose powder 17 g PO ONCE Qty: 238 0RF Rx Instructions: Take per colonoscopy instructions provided by ordering providers office nystatin 100,000 unit/gram powder 1 applic topical DAILY Qty: 30 6RF Rx Instructions: apply to affected area as needed. Discharge Instructions Additional Instructions: FINDINGS: No polyps or concerning findings in your colon. You can repeat another colonoscopy in 10 years. Stand Alone Forms: Anesthesia Discharge Inst., Colonoscopy Post Instructions, Beverly Loving ([facility]) Activity:: Activity as Tolerated Diet:: As Tolerated
== END 2023-10-20 13:57 | disposition home or self-care (01) ==
PROVIDERS: PCP Family Medicine; Visit Provider Student in an Organized Health Care Education/Training Program
PROC: 0DJD8ZZ Inspection of Lower Intestinal Tract, Via Natural or Artificial Opening Endoscopic (ICD-10-PCS; CPT 45378; principal; 2023-10-20 12:00)
DX: Z12.11 Encounter for screening for malignant neoplasm of colon (principal); K57.90 Diverticulosis of intestine, part unspecified, without perforation or abscess without bleeding
CPT/HCPCS: 44388; 00123; J2704

== ENCOUNTER 2023-11-06 08:46 | Outpatient (CLI) | payer OTHER, SELFPAY ==
[2023-11-06 13:50] LABS: ALT 29 U/L (14-59); AST 18 U/L (15-37); Albumin 3.5 g/dL (3.4-5.0); Alkaline Phosphatase 66 U/L (46-116); Anion Gap 8.6 mmol/L (3-11); BUN 13 mg/dL (7-18); CO2 28.4 mmol/L (21.0-32.0); Calcium 9.8 mg/dL (8.5-10.1); Chloride 107 mmol/L (98-107); Glucose 129 mg/dL (74-106); Potassium 4.2 mmol/L (3.5-5.1); Sodium 144 mmol/L (136-145); TSH (W/Ref FT4) 1.29 uIU/mL (0.36-3.74); Total Protein 7.2 g/dL (6.4-8.2); Vitamin D 25 Total 23.4 ng/mL (30-100)
== END 2023-11-06 08:47 | disposition home or self-care (01) ==
LOC: LOS 08:47
PROVIDERS: PCP Family Medicine; Visit Provider Family Medicine
DX: E03.9 Hypothyroidism, unspecified (principal); E04.1 Nontoxic single thyroid nodule; Z00.00 Encounter for general adult medical examination without abnormal findings; E66.01 Morbid (severe) obesity due to excess calories; Z68.41 Body mass index [BMI] 40.0-44.9, adult
CPT/HCPCS: 36415; 80053; 82306; 84443

== ENCOUNTER 2024-04-07 03:17 | Outpatient (CLI) | payer OTHER, SELFPAY ==
[2024-04-07 12:23] LABS: Abs Immature Grans 0.02 10^3/uL (0.0-0.06); Absolute Basophil Count 0.03 10^3/uL (0.0-0.2); Absolute Eosinophil Count 0.13 10^3/uL (0.0-0.7); Absolute Lymphocyte Count 1.18 10^3/uL (1.2-3.4); Absolute Monocyte Count 0.51 10^3/uL (0.1-0.8); Basophils % 0.5 %; Eosinophils % 2.1 %; HCT 48.1 % (36.0-46.0); HGB 15.3 g/dL (11.2-15.7); Immature Grans % 0.3 %; Lymphocytes % 18.8 %; MCH 29.9 pg (27.0-33.0); MCHC 31.8 % (32.0-36.0); MCV 94 fL (80-95); MPV 11.9 fL (8.0-11.0); Monocytes % 8.1 %; Neutrophils % 70.2 %; Platelet Count 237 10^3/uL (130-400); RBC 5.12 10^6/uL (3.93-5.22); RDW 12.5 % (11.7-14.6); RDW-SD 43.3 fL; WBC 6.27 10^3/uL (4.4-10.8)
[2024-04-07 12:49] LABS: Iron 105 ug/dL (50-170); Total Iron Binding Capacity 408 ug/dL (250-450)
[2024-04-07 13:04] LABS: Ferritin 26 ng/mL (8-252); Vitamin B12 410 pg/mL (193-986); Vitamin D 25 Total 31.6 ng/mL (30-100)
[2024-04-08 10:54] LABS: Transferrin 313 mg/dL (201-352)
[2024-04-09 11:50] LABS: Zinc, S 79 mcg/dL (60-106)
== END 2024-04-07 03:18 | disposition home or self-care (01) ==
LOC: LOS 03:17
PROVIDERS: PCP Family Medicine; Visit Provider Family Medicine
DX: E55.9 Vitamin D deficiency, unspecified (principal); Z93.3 Colostomy status; D64.9 Anemia, unspecified
CPT/HCPCS: 36415; 82306; 84630; 82607; 82728; 83540; 83550; 84466; 85025

== ENCOUNTER 2024-10-07 10:37 | Outpatient (CLI) | payer OTHER, SELFPAY ==
[2024-10-07 10:50] LABS: Hemoglobin A1C 5.9 % (<5.7)
[2024-10-07 11:30] LABS: ALT 22 U/L (14-59); AST 25 U/L (15-37); Albumin 3.6 g/dL (3.4-5.0); Alkaline Phosphatase 72 U/L (46-116); Anion Gap 5.5 mmol/L (3-11); BUN 17 mg/dL (7-18); Bilirubin, Total 0.6 mg/dL (0.2-1.0); CO2 29.5 mmol/L (21.0-32.0); Calcium 9.3 mg/dL (8.5-10.1); Calculated LDL 106 mg/dL (<100); Chloride 104 mmol/L (98-107); Cholesterol 182 mg/dL (<200); Estimated GFR 62.91 (mL/min/1.73m2); Glucose 99 mg/dL (74-106); HDL Cholesterol 59 mg/dL (>or=50); Potassium 4.3 mmol/L (3.5-5.1); Sodium 139 mmol/L (136-145); TSH (W/Ref FT4) 1.12 uIU/mL (0.36-3.74); Total Protein 7.2 g/dL (6.4-8.2); Triglyceride 89 mg/dL (<150); Vitamin D 25 Total 31 ng/mL (30-100)
== END 2024-10-07 10:38 | disposition home or self-care (01) ==
LOC: LBO 10:38
PROVIDERS: PCP Family Medicine; Visit Provider Family Medicine
DX: Z13.6 Encounter for screening for cardiovascular disorders (principal); E66.01 Morbid (severe) obesity due to excess calories; Z68.41 Body mass index [BMI] 40.0-44.9, adult; Z00.00 Encounter for general adult medical examination without abnormal findings; R73.01 Impaired fasting glucose; E03.9 Hypothyroidism, unspecified
CPT/HCPCS: 36415; 80053; 80061; 80400; 82306; 82533; 83036; 84443

== ENCOUNTER 2024-12-02 02:21 | Outpatient (CLI) | payer OTHER, SELFPAY ==
[2024-12-02 15:04] LABS: Hemoglobin A1C 5.7 % (<5.7)
[2024-12-02 15:18] LABS: COMMENT (LAB VIEW ONLY) < 13.00 mg/dL
== END 2024-12-02 02:22 | disposition home or self-care (01) ==
PROVIDERS: PCP Family Medicine; Visit Provider Family Medicine
DX: E11.9 Type 2 diabetes mellitus without complications (principal)
CPT/HCPCS: 36415; 82043; 82570; 83036

== ENCOUNTER 2024-12-02 02:32 | Outpatient (CLI) | payer OTHER, SELFPAY ==
--- NOTE | 2024-12-02 10:40 | TELEFU_ITS ---
Date of service: 12/02/24 Time of Service: 10:00 Nutrition Note NOTE: Danielle referred to nutrition appt for diabetes education. A1c 12/02 5.7%. BMI has been >40 and she realizes she would benefit from wt loss. Hx of colostomy about 2 years ago and feels familiar with how to manage. She ea ts for 1 at home. NKFA. We discussed eating more plants, especially high protein plants like legumes, oats, quinoa, nuts and seeds, whole soy if feeling adventurous. discussed snacking and trying to adhere to a pattern of 3 meals and 0-2 PLANNED snacks. avoid eating after 7pm if possible. Reviewed aiming for high fiber and low added sugar diet with ways on how to track added sugar and keep under 30g per day as a start. Suggested 25g or more of fiber and reviewed how to track and ensure good amount at each meal. discussed activity, sleep and stress and how they impact glucose mgt. Encourage no sugar in drinks and avoid fruit juice as well. Gave some sample menus and plan to follow up with phone update x 2 weeks Time Spent in Nutritional Counseling and Treatment: 35 min
== END 2024-12-02 02:33 | disposition home or self-care (01) ==
PROVIDERS: PCP Family Medicine; Visit Provider Dietitian, Registered
DX: E11.9 Type 2 diabetes mellitus without complications (principal)
CPT/HCPCS: 00123; 97802